=== PATIENT | female | born 1940 | race Caucasian/White ===

== ENCOUNTER 2017-10-02 12:36 | Emergency (ER) | payer MEDICARE, BC ==
[2017-10-02 12:43] VITALS: RESP 18; TEMP 98.9
[2017-10-02] MEDS ORDERED: DIPH,PERTUS(ACELL)TETVAC-LF 0.5 ML VIAL IM ONE (12:55)
[2017-10-02] MEDS ORDERED: LIDOCAINE 1% INJ 10MG/ML (20 ML MDV) SQ ONE (12:58)
--- NOTE | 2017-10-02 13:13 | ED ---
General Adult HPI - General Chief complaint: Wound/Laceration Stated complaint: Laceration on Finger Time Seen by Provider: 10/02/17 12:46 Source: patient, RN notes reviewed Mode of arrival: ambulatory Limitations: no limitations - History of Present Illness Initial comments: 77-year-old female presents to the emergency department for a chief complaint of finger laceration 1 hour. Patient was using a sharp, new knife to cut a watermelon when she accidentally cut her left second finger. Patient states she takes Coumadin. Patient denies any shortness of breath, chest pain, dizziness, lightheadedness, or blood in stool or urine. Patient states she can move the finger without difficulty. Patient is not up to date on tetanus. Patient has no other complaints at this time including shortness of breath, chest pain, abdominal pain, nausea or vomiting, headache, or visual changes. - Related Data Home Medications Medication Instructions Recorded Confirmed Diltiazem Cd [Cardizem Cd] 180 mg PO HS 03/30/15 10/02/17 Furosemide [Lasix] 20 mg PO DAILY PRN 03/30/15 10/02/17 HYDROcodone/APAP 7.5-325MG [[place] 0.5 tab PO Q6HR PRN 03/30/15 10/02/17 7.5-325] Levothyroxine Sodium [Synthroid] 50 mcg PO DAILY 03/30/15 10/02/17 Metoprolol Tartrate [Lopressor] 25 mg PO QAM 03/30/15 10/02/17 Phenytoin Sodium Extended 100 mg PO BID 03/30/15 10/02/17 [Dilantin] Metoprolol Tartrate [Lopressor] 50 mg PO HS 03/31/15 10/02/17 Warfarin [Coumadin] 5 mg PO DIRECTED 10/02/17 10/02/17 Warfarin [Coumadin] 7.5 mg PO DIRECTED 10/02/17 10/02/17 Allergies Allergy/AdvReac Type Severity Reaction Status Date / Time cephalexin monohydrate Allergy Nausea & Verified 10/02/17 12:43 [From Keflex] Vomiting codeine Allergy Unknown Verified 10/02/17 12:43 Penicillins Allergy Unknown Verified 10/02/17 12:43 Review of Systems ROS Statement: Those systems with pertinent positive or pertinent negative responses have been documented in the HPI. ROS Other: All systems not noted in ROS Statement are negative. Past Medical History Past Medical History: Atrial Flutter, Asthma, Heart Failure, GERD/Reflux, Hypertension, Seizure Disorder, Thyroid Disorder Additional Past Medical History / Comment(s): pt sates 2 1/2 years ago she had cardiac arrest., fibromyalgia History of Any Multi-Drug Resistant Organisms: MRSA Date of last positivie culture/infection: 2007 MDRO Source:: left knee Past Surgical History: Section, Hysterectomy, Orthopedic Surgery, Pacemaker Past Anesthesia/Blood Transfusion Reactions: No Reported Reaction, Postoperative Nausea & Vomiting (PONV) Past Psychological History: No Psychological Hx Reported Smoking Status: Never smoker Past Alcohol Use History: None Reported Past Drug Use History: None Reported General Exam Limitations: no limitations General appearance: alert, in no apparent distress Head exam: Present: atraumatic, normocephalic, normal inspection Eye exam: Present: normal appearance, PERRL, EOMI. Absent: scleral icterus, conjunctival injection, periorbital swelling ENT exam: Present: normal exam, mucous membranes moist Neck exam: Present: normal inspection, full ROM. Absent: tenderness, meningismus, lymphadenopathy Respiratory exam: Present: normal lung sounds bilaterally. Absent: respiratory distress, wheezes, rales, rhonchi, stridor Cardiovascular Exam: Present: regular rate, normal rhythm, normal heart sounds. Absent: systolic murmur, diastolic murmur, rubs, gallop, clicks Extremities exam: Present: full ROM (Full range of motion of the left second finger including flexion and extension of the MCP, PIP, and DIP joint), tenderness (Tenderness over the laceration site. No tenderness elsewhere in the left second digit or left hand. No scaphoid tenderness.), normal capillary refill (Refill less than 2 seconds in the left second digit. Radial pulse 2+ in upper extremities bilaterally.), other (Sensation intact in left second digit. There is a 1.5 cm laceration to the distal phalanx of the left second finger extending through the distal portion of the nail and around the lateral side of the finger to the finger pad) Course Vital Signs 10/02/17 10/02/17 12:41 13:42 Temperature 98.9 F Pulse Rate 60 53 L Respiratory 18 18 Rate Blood Pressure 192/84 143/65 O2 Sat by Pulse 94 L 94 L Oximetry Medical Decision Making - Medical Decision Making 77-year-old female presents to the emergency department for a chief complaint of finger laceration 1 hour. Tetanus was given in the emergency department. On exam patient is a 1 cm laceration of the distal left second finger. Full range of motion in the left second digit. All deep structures including tendons are uninjured. Patient was numbed with lidocaine using a digital block. Upon further inspection, Patient's laceration was an avulsion of the lateral surface of the skin of the finger. It was not suturable. Finger was cleaned with sterile water and iodine. Portion of nail that was partially lacerated was removed per patient's request. Gelfoam was applied to the avulsion area. TubeGauze was then applied. Bleeding was controlled. Patient was educated to take the gauze off tomorrow but to let the Gelfoam fall off on its own. She is aware to monitor for signs of infection or worsening symptoms and return if these occur. She will follow up with primary care in 1-2 days. Disposition Clinical Impression: Laceration Disposition: HOME SELF-CARE Condition: Good Instructions: Laceration (ED) Additional Instructions: Please remove gauze tomorrow. Let Gelfoam fall off on its own. Monitor for signs of infection such as spreading redness, drainage, or fever and return if this occurs. Otherwise follow-up with primary care in 1-2 days. Is patient prescribed a controlled substance at d/c from ED?: No Referrals: Cole Hensley DO [Primary Care Provider] - 1-2 days Time of Disposition: 13:52
--- NOTE | 2017-10-02 13:36 | XR ---
Second digit left hand HISTORY: Laceration 3 views of the second digit of the left hand Soft tissue defect is compatible with patient's laceration at the distal aspect of the second digit. Arthropathy changes noted. No radiopaque foreign body, fracture or dislocation. IMPRESSION: Soft tissue injury.
[2017-10-02 13:48] VITALS: BP 143/65; PULSE 53
[2017-10-02] MEDS ORDERED: GELATIN SPONGE,ABSORB (SMALL) 1 EACH SPONGE TOPICAL STA (13:49)
== END 2017-10-02 14:19 | disposition home or self-care (01) ==
LOC: EC 12:36
DX: S61.211A Laceration without foreign body of left index finger without damage to nail, initial encounter (principal); I48.91 Unspecified atrial fibrillation; I50.9 Heart failure, unspecified; I11.0 Hypertensive heart disease with heart failure; M79.7 Fibromyalgia; G40.909 Epilepsy, unspecified, not intractable, without status epilepticus; E07.9 Disorder of thyroid, unspecified; Z86.14 Personal history of Methicillin resistant Staphylococcus aureus infection; Z23 Encounter for immunization; Z79.01 Long term (current) use of anticoagulants; Z79.899 Other long term (current) drug therapy; Z88.0 Allergy status to penicillin; Z88.1 Allergy status to other antibiotic agents; Z88.5 Allergy status to narcotic agent; W26.0XXA Contact with knife, initial encounter
CPT/HCPCS: 73140; 90715; 99283; 11730; 90471; J2001

== ENCOUNTER → 2018-03-21 | Outpatient (CLI) | payer MEDICARE, BC ==
--- NOTE | 2018-03-21 16:00 | CT ---
EXAMINATION TYPE: CT cervical spine wo con DATE OF EXAM: 03/21/2018 COMPARISON: NONE HISTORY: Cervicalgia per order. CT DLP: 159 mGycm. Automated Exposure Control for Dose Reduction was Utilized. TECHNIQUE: CT scan of the cervical spine is obtained without contrast, axial images are obtained, sa gittal and coronal reformatted images are also reviewed. FINDINGS: Cervical spine is visualized in its entirety from C1 through upper thoracic levels, demonst rates straightened alignment without evidence of acute fracture or dislocation. Prevertebral soft ti ssue appears within normal limits. The C1-C2 articulation is within normal limits on the coronal davin ges. Vertebral body heights are maintained. There is moderate to severe multilevel disc space narrowing. N o large posterior disc herniations are seen on sagittal images. Review of axial images at C2-C3 level is felt within normal limits. Axial images at C3-C4 level show left paracentral/foraminal spurring effacing anterolateral thecal sa c and causing advanced left-sided neural foraminal narrowing on axial image 54. Axial images at C4-C5 level show marginal spurring causing moderate to severe bilateral neural forami nal narrowing with some uncovertebral facet degenerative changes appreciated bilaterally. Axial images at C5-C6 level show posterior and marginal spurring causing moderate to advanced left gr eater than right bilateral neural foraminal narrowing. Spinal canal is grossly preserved. Axial images at C6-C7 level show left paracentral/foraminal spurring causing moderate left-sided neur al foraminal narrowing. Right-sided neural foramen is patent. Axial images at the C7-T1 level show artifact from patient's body habitus. There are felt likely with in normal limits. There is calcified 1.2 x 0.9 cm left thyroid nodule axial image 81. There is partial visualization of pacemaker device in the left upper thorax. There is moderate to severe calcified plaque bilateral ca rotid bulbs. Carotid ultrasound March 31, 2015 is noted in PACS. IMPRESSION: Straightening of cervical spine with multilevel degenerative changes as detailed above. S ignificant multilevel posterior and marginal spurring . No obvious disc herniation identified.
--- NOTE | 2018-03-21 16:10 | CT ---
EXAMINATION TYPE: CT lumbar spine wo con DATE OF EXAM: 03/21/2018 3:54 PM COMPARISON: CT lumbar spine August 16, 2012. HISTORY: lumbago per order. History of pacemaker. CT DLP: 455 mGycm Automated exposure control for dose reduction was used. Unenhanced CT of the lumbar spine was performed. Bone and soft tissue window settings are submitted as well as coronal and sagittal reconstructions. There are 5 lumbar-type vertebra redemonstrated. Moderate to advanced disc space narrowing L5-S1 leve l is redemonstrated. There is moderate disc space narrowing L3-L4 level most prominent left aspect. N o acute fracture or dislocation is seen. Mild to moderate multilevel anterior and lateral spurring is present. Review of axial images shows T12-L1 and L1-L2 levels to appear within normal limits. Axial images at the L2-L3 level show broad-based posterior disc protrusion mildly effacing anterior t hecal sac and mild facet degenerative changes bilaterally. There is mild bilateral neural foraminal n arrowing felt present. Axial images at the L3-L4 level show moderate facet degenerative changes bilaterally. There is modera te broad disc bulge seen. There is effacement of anterior posterior lateral thecal sac on axial image 63. There is moderate to severe bilateral neural foraminal narrowing is felt present. Axial images at the L4-L5 level show moderate right and mild left-sided facet degenerative changes bi laterally. There is broad disc bulge with right paracentral/foraminal disc protrusion component on ax ial image 71. There is effacement of the anterolateral thecal sac. There is moderate to severe right- sided neural foraminal narrowing. Left-sided neural foramina is mildly narrowed. Axial images at L5-S1 level show moderate to advanced facet degenerative changes bilaterally. There i s posterior spur disc complex effacing anterior thecal sac. There is moderate to advanced right-sided neural foraminal narrowing. Left-sided neural foramina is moderately narrowed. There is suboptimal evaluation of left-sided neural foramina at sagittal images do not include entire left-sided foramina at multiple levels. There is partial visualization of pacemaker and the heart. Cholecystectomy clips are appreciated. The re is rim calcified lesion anteriorly upper pole level left kidney axial image 28 stable from prior p resumed benign. Some cortical thinning in both kidneys is present. There are few small nonobstructing renal calculi seen bilaterally on current study. IMPRESSION: Suboptimal study due to patient's body habitus as well as technique which does not includ e entire left sided foramina on sagittal images. Multilevel degenerative changes most prominent mid t o lower lumbar spine are seen as detailed above
== END | disposition home or self-care (01) ==
LOC: RADCTMAIN 14:58
PROVIDERS: ATTEND Psychiatry & Neurology Neurology
DX: M48.07 Spinal stenosis, lumbosacral region (principal); M99.73 Connective tissue and disc stenosis of intervertebral foramina of lumbar region; M51.26 Other intervertebral disc displacement, lumbar region; M47.817 Spondylosis without myelopathy or radiculopathy, lumbosacral region; M48.02 Spinal stenosis, cervical region; M99.71 Connective tissue and disc stenosis of intervertebral foramina of cervical region; M47.812 Spondylosis without myelopathy or radiculopathy, cervical region
CPT/HCPCS: 72125; 72131

== ENCOUNTER 2019-12-02 23:14 | Emergency (ER) | payer MEDICARE, BC ==
--- NOTE | 2019-12-03 00:08 | ED ---
Abdominal Pain HPI - General Chief Complaint: Abdominal Pain Stated Complaint: LT flank pain Time Seen by Provider: 12/02/19 23:34 Source: patient, RN notes reviewed, old records reviewed Mode of arrival: ambulatory Limitations: no limitations - History of Present Illness Initial Comments: This is a 79-year-old female DF for evaluation severe left flank pain. History of chronic back pain with this pain is worse. His been off [place] for 6 months which she weaned herself off all for chronic back pain last night started with severe flank pain radiating to her groin. Patient states that the pain is getting progressively worse throughout the day began mild nausea no vomiting no fevers. Normal bowel movement normal urination MD Complaint: abdominal pain, flank pain (Left-sided), other (No new back injury) -: hour(s) Location: LLQ, L flank Radiation: L flank Migration to: RLQ Severity: severe Severity scale (1-10): 9 Quality: stabbing, sharp Consistency: constant Improves With: nothing Worsens With: nothing Associated Symptoms: nausea - Related Data Home Medications Medication Instructions Recorded Confirmed Diltiazem Cd [Cardizem Cd] 180 mg PO HS 03/30/15 10/02/17 Furosemide [Lasix] 20 mg PO DAILY PRN 03/30/15 10/02/17 HYDROcodone/APAP 7.5-325MG [[place] 0.5 tab PO Q6HR PRN 03/30/15 10/02/17 7.5-325] Levothyroxine Sodium [Synthroid] 50 mcg PO DAILY 03/30/15 10/02/17 Metoprolol Tartrate [Lopressor] 25 mg PO QAM 03/30/15 10/02/17 Phenytoin Sodium Extended 100 mg PO BID 03/30/15 10/02/17 [Dilantin] Metoprolol Tartrate [Lopressor] 50 mg PO HS 03/31/15 10/02/17 Warfarin [Coumadin] 5 mg PO DIRECTED 10/02/17 10/02/17 Warfarin [Coumadin] 7.5 mg PO DIRECTED 10/02/17 10/02/17 Allergies Allergy/AdvReac Type Severity Reaction Status Date / Time cephalexin monohydrate Allergy Nausea & Verified 12/02/19 23:31 [From Keflex] Vomiting codeine Allergy Unknown Verified 12/02/19 23:31 Penicillins Allergy Unknown Verified 12/02/19 23:31 Review of Systems ROS Statement: Those systems with pertinent positive or pertinent negative responses have been documented in the HPI. ROS Other: All systems not noted in ROS Statement are negative. Past Medical History Past Medical History: Atrial Flutter, Asthma, Heart Failure, GERD/Reflux, Hypertension, Seizure Disorder, Thyroid Disorder Additional Past Medical History / Comment(s): pt sates 2 1/2 years ago she had cardiac arrest., fibromyalgia History of Any Multi-Drug Resistant Organisms: MRSA Date of last positivie culture/infection: 2007 MDRO Source:: left knee Past Surgical History: Section, Hysterectomy, Orthopedic Surgery, Pacemaker Past Anesthesia/Blood Transfusion Reactions: No Reported Reaction, Postoperative Nausea & Vomiting (PONV) Past Psychological History: Depression Smoking Status: Never smoker Past Alcohol Use History: None Reported Past Drug Use History: None Reported General Exam Limitations: no limitations General appearance: alert, in no apparent distress, anxious Head exam: Present: atraumatic, normocephalic, normal inspection Eye exam: Present: normal appearance, PERRL, EOMI. Absent: scleral icterus, conjunctival injection, periorbital swelling ENT exam: Present: normal exam, mucous membranes moist Neck exam: Present: normal inspection. Absent: tenderness, meningismus, lymphadenopathy Respiratory exam: Present: normal lung sounds bilaterally. Absent: respiratory distress, wheezes, rales, rhonchi, stridor Cardiovascular Exam: Present: regular rate, normal rhythm, normal heart sounds. Absent: systolic murmur, diastolic murmur, rubs, gallop, clicks GI/Abdominal exam: Present: soft, normal bowel sounds. Absent: distended, tenderness, guarding, rebound, rigid Extremities exam: Present: normal inspection, full ROM, normal capillary refill. Absent: tenderness, pedal edema, joint swelling, calf tenderness Back exam: Present: normal inspection Neurological exam: Present: alert, oriented X3, CN II-XII intact Psychiatric exam: Present: normal affect, normal mood Skin exam: Present: warm, dry, intact, normal color. Absent: rash Course Vital Signs 12/02/19 23:29 Temperature 98.9 F Pulse Rate 60 Respiratory 17 Rate Blood Pressure 195/74 O2 Sat by Pulse 96 Oximetry - Reevaluation(s) Reevaluation #1: 12/03/19 01:44 Medical records reviewed Reevaluation #2: 12/03/19 01:44 Patient has adequate current pain control Reevaluation #3: 12/03/19 01:44 Spoke patient having symptoms and findings, questions are answered Medical Decision Making - Medical Decision Making 79 female with left flank pain chronic back pain, pain is well-controlled currently new diagnosis of kidney stones today, patient given pain control here in the ER and can be discharged home - Lab Data Result diagrams: 12/03/19 00:17 12/03/19 00:17 Lab Results 12/03/19 12/03/19 12/03/19 Range/Units 00:17 00:17 00:17 WBC 11.2 H (3.8-10.6) k/uL RBC 4.98 (3.80-5.40) m/uL Hgb 15.2 (11.4-16.0) gm/dL Hct 47.5 H (34.0-46.0) % MCV 95.4 (80.0-100.0) fL MCH 30.5 (25.0-35.0) pg MCHC 32.0 (31.0-37.0) g/dL RDW 13.2 (11.5-15.5) % Plt Count 161 (150-450) k/uL Neutrophils % 66 % Lymphocytes % 20 % Monocytes % 8 % Eosinophils % 3 % Basophils % 1 % Neutrophils # 7.4 (1.3-7.7) k/uL Lymphocytes # 2.2 (1.0-4.8) k/uL Monocytes # 0.9 (0-1.0) k/uL Eosinophils # 0.3 (0-0.7) k/uL Basophils # 0.1 (0-0.2) k/uL Sodium 142 (137-145) mmol/L Potassium 4.6 (3.5-5.1) mmol/L Chloride 105 (98-107) mmol/L Carbon Dioxide 32 H (22-30) mmol/L Anion Gap 5 mmol/L BUN 26 H (7-17) mg/dL Creatinine 1.06 H (0.52-1.04) mg/dL Est GFR (CKD-EPI)AfAm 59 (>60 ml/min/1.73 sqM) Est GFR (CKD-EPI)NonAf 51 (>60 ml/min/1.73 sqM) Glucose 161 H (74-99) mg/dL Plasma Lactic Acid Lauri 1.6 (0.7-2.0) mmol/L Calcium 9.6 (8.4-10.2) mg/dL Phosphorus 3.3 (2.5-4.5) mg/dL Magnesium 2.1 (1.6-2.3) mg/dL Total Bilirubin 0.3 (0.2-1.3) mg/dL AST 33 (14-36) U/L ALT 12 (4-34) U/L Alkaline Phosphatase 121 (38-126) U/L Total Protein 7.4 (6.3-8.2) g/dL Albumin 4.3 (3.5-5.0) g/dL Amylase 64 (30-110) U/L Lipase 94 (23-300) U/L - Radiology Data Radiology results: report reviewed (CT head and pelvis is significant for left- sided ureteral calculus), image reviewed Disposition Clinical Impression: Left ureteral calculus Disposition: HOME SELF-CARE Condition: Good Instructions (If sedation given, give patient instructions): Kidney Stones (ED) Is patient prescribed a controlled substance at d/c from ED?: No Referrals: Cole Hensley DO [Primary Care Provider] - 1-2 days
[2019-12-03] MEDS ORDERED: MORPHINE SULFATE 4 MG/ML SYRINGE IVP PRN (00:21)
[2019-12-03] MEDS ORDERED: MORPHINE SULFATE 4 MG/ML SYRINGE IVP STA (00:21)
[2019-12-03 00:34] LABS: Basophils # (A) 0.1 k/uL (0-0.2); Basophils % (A) 1 %; Eosinophils # (A) 0.3 k/uL (0-0.7); Eosinophils % (A) 3 %; HCT 47.5 % (34.0-46.0); HGB 15.2 gm/dL (11.4-16.0); Lymphocytes # (A) 2.2 k/uL (1.0-4.8); Lymphocytes % (A) 20 %; MCH 30.5 pg (25.0-35.0); MCV 95.4 fL (80.0-100.0); Monocytes # (A) 0.9 k/uL (0-1.0); Monocytes % (A) 8 %; Neutrophils # (A) 7.4 k/uL (1.3-7.7); Neutrophils % (A) 66 %; Platelet Count 161 k/uL (150-450); RBC 4.98 m/uL (3.80-5.40); RDW 13.2 % (11.5-15.5); WBC 11.2 k/uL (3.8-10.6)
[2019-12-03 00:45] LABS: Albumin 4.3 g/dL (3.5-5.0); Calcium 9.6 mg/dL (8.4-10.2); Magnesium 2.1 mg/dL (1.6-2.3); Phosphorus 3.3 mg/dL (2.5-4.5); Potassium 4.6 mmol/L (3.5-5.1); Total Bilirubin 0.3 mg/dL (0.2-1.3); Total Protein 7.4 g/dL (6.3-8.2)
[2019-12-03] MEDS ORDERED: ONDANSETRON 4 MG/2 ML VIAL IVP STA (00:47)
--- NOTE | 2019-12-03 00:57 | CT ---
EXAMINATION TYPE: CT abdomen pelvis wo con DATE OF EXAM: 12/03/2019 COMPARISON: 08/13/2012 HISTORY: Abdominal pain left flank pain. CT DLP: 1097.4 mGycm Automated exposure control for dose reduction was used. Heart appears enlarged. There is minimal atelectasis right lung base. There is no pleural effusion. T here is no pericardial effusion. There are clips from cholecystectomy. Bile ducts are not dilated. Liver shows no focal defect. Spleen is intact. There is no pancreatic mass. Stomach is intact. There is no adrenal mass. Kidneys have normal size. There is left-sided hydronephrosis and hydrourete r. There is 5 mm calculus at the left ureterovesical junction. There is complex 2 cm cyst upper pole left kidney with calcification. There is 4 mm calculus lower pole left kidney. Right kidney shows some hydronephrosis but no hydroureter. There is no evidence of right renal calcul us. There is no retroperitoneal adenopathy. Appendix is not seen. There is no sign of thickened appendix. There is no ascites. There is no free a ir. There is no evidence of bowel obstruction. There are sigmoid diverticula without diverticulitis. There is no mesenteric edema. There are some spondylotic changes in the lumbar spine. There is no compression fracture. There is sp urring of the endplates. The bony pelvis is intact. There is moderately severe spinal stenosis at L3- 4 L4-5 due to facet arthropathy and developmentally small spinal canal. There is also posterior disc herniation at L3-4 and L4-5. IMPRESSION: Obstructing calculus at the left ureterovesical junction with hydronephrosis and hydroureter. Small l eft renal calculus. Mild right-sided hydronephrosis without evidence of obstructing calculus. Minimal atelectasis at the lung bases is improved compared to old exam. Obstruction of left kidney is new compared to old exam. Complex calcified cyst left kidney unchanged. Significant spinal stenosis in the lower lumbar spine. Unchanged.
[2019-12-03] MEDS ORDERED: SODIUM CHLORIDE 0.9% 1,000 ML IV STA (01:22)
[2019-12-03] MEDS ORDERED: traMADol 50 MG STARTER PACK 3 TAB BTL PO STA (01:22)
[2019-12-03] MEDS ORDERED: IBUPROFEN 600 MG STARTER PACK 4 TAB BTL PO STA (01:22)
[2019-12-03] MEDS ORDERED: KETOROLAC 15 MG/ML 1 ML VIAL IVP STA (01:22)
[2019-12-03] MEDS ORDERED: TAMSULOSIN 0.4 MG CAP.ER.24H PO STA (01:22)
[2019-12-03 02:11] LABS: Appearance,Urine Cloudy (Clear); Bacteria,Urine Few /hpf; Bilirubin,Urine Negative (Negative); Blood,Urine Moderate (Negative); Color,Urine Yellow; Glucose,Urine (UA) Negative (Negative); Ketones,Urine Negative (Negative); Leukocyte Esterase,Urine Small (Negative); Mucus,Urine Rare /hpf; Nitrite,Urine Positive (Negative); PH, Urine 5.5 (5.0-8.0); Protein,Urine Trace (Negative); RBC,Urine 42 /hpf (0-5); Specific Gravity,Urine 1.021 (1.001-1.035); Squamous Epithelial Cell,Urine 4 /hpf (0-4); Urobilinogen,Urine <2.0 mg/dL (<2.0); WBC,Urine 15 /hpf (0-5)
[2019-12-03] MEDS ORDERED: LEVOFLOXACIN 750MG-D5W PMX 750 MG in DEXTROSE/WATER 1 150ML.BAG IVPB STA (02:27)
[2019-12-03] MEDS ORDERED: LEVOFLOXACIN 750 MG TAB PO STA (02:32)
[2019-12-03 02:45] VITALS: BP 167/82; PULSE 69; RESP 18; TEMP 98.7
== END 2019-12-03 02:45 | disposition home or self-care (01) ==
LOC: EC 23:14
DX: N20.2 Calculus of kidney with calculus of ureter (principal); I11.0 Hypertensive heart disease with heart failure; I50.9 Heart failure, unspecified; I48.92 Unspecified atrial flutter; E07.9 Disorder of thyroid, unspecified; G40.909 Epilepsy, unspecified, not intractable, without status epilepticus; Z79.899 Other long term (current) drug therapy; Z79.890 Hormone replacement therapy; Z79.01 Long term (current) use of anticoagulants; Z88.0 Allergy status to penicillin; Z88.1 Allergy status to other antibiotic agents; Z88.5 Allergy status to narcotic agent; Z90.710 Acquired absence of both cervix and uterus
CPT/HCPCS: 36415; 80053; 82150; 83605; 83690; 83735; 84100; 85025; 81001; 87086; 87077; 87186; 74176; 99285; 96374; 96375 ×2; 96361; J2270; J2405; J1885

== ENCOUNTER 2022-01-14 00:34 | Emergency (ER) | payer MEDICARE, BC ==
[2022-01-14 00:46] VITALS: TEMP 99
[2022-01-14] MEDS ORDERED: KETOROLAC 15 MG/ML 1 ML VIAL IVP STA (00:52)
[2022-01-14] MEDS ORDERED: DEXAMETHASONE SOD PHOSPHATE 10 MG/ML 1 ML VIAL IVP STA (00:52)
[2022-01-14] MEDS ORDERED: SODIUM CHLORIDE 0.9% 1,000 ML IV STA ×2 (00:52)
[2022-01-14] MEDS ORDERED: ACETAMINOPHEN TAB 500 MG TAB PO STA (00:52)
--- NOTE | 2022-01-14 00:53 | ED ---
Recheck HPI - General Chief Complaint: Weakness Stated Complaint: Weakness Time Seen by Provider: 01/14/22 00:50 Source: patient, EMS, RN notes reviewed, old records reviewed Mode of arrival: EMS Limitations: no limitations - History of Present Illness Initial Comments: This is a 81-year-old female to the emergency department for evaluation. Patient resents for not feeling well. Increased cough and congestion shortness of breath with history of asthma. Patient did have sick contacts on Wednesday night be can do feel worse since then. Bodyaches pains etc. she doesn't at home test which was positive. MD Complaint: abnormal lab (Coronavirus) -: days(s) Returns Today for: Called Because of Abnormal Lab/Test, persistent/worsening pain related to initial visit Symptoms Since Prior Visit: worsening pain, fever Context: planned re-check Associated Symptoms: fever, shortness of breath, malaise, nausea Treatments Prior to Arrival: other (0) - Related Data Home Medications Medication Instructions Recorded Confirmed Diltiazem Cd [Cardizem Cd] 180 mg PO HS 03/30/15 10/02/17 Furosemide [Lasix] 20 mg PO DAILY PRN 03/30/15 10/02/17 HYDROcodone/APAP 7.5-325MG [[place] 0.5 tab PO Q6HR PRN 03/30/15 10/02/17 7.5-325] Levothyroxine Sodium [Synthroid] 50 mcg PO DAILY 03/30/15 10/02/17 Metoprolol Tartrate [Lopressor] 25 mg PO QAM 03/30/15 10/02/17 Phenytoin Sodium Extended 100 mg PO BID 03/30/15 10/02/17 [Dilantin] Metoprolol Tartrate [Lopressor] 50 mg PO HS 03/31/15 10/02/17 Warfarin [Coumadin] 5 mg PO DIRECTED 10/02/17 10/02/17 Warfarin [Coumadin] 7.5 mg PO DIRECTED 10/02/17 10/02/17 Previous Rx's Medication Instructions Recorded levoFLOXacin [Levaquin] 500 mg PO DAILY 3 Days #3 tab 12/03/19 dexAMETHasone [Decadron] 6 mg PO DAILY #5 tablet 01/14/22 Allergies Allergy/AdvReac Type Severity Reaction Status Date / Time cephalexin monohydrate Allergy Nausea & Verified 01/14/22 00:46 [From Keflex] Vomiting codeine Allergy Unknown Verified 01/14/22 00:46 Penicillins Allergy Unknown Verified 01/14/22 00:46 Review of Systems ROS Statement: Those systems with pertinent positive or pertinent negative responses have been documented in the HPI. ROS Other: All systems not noted in ROS Statement are negative. Past Medical History Past Medical History: Atrial Flutter, Asthma, Heart Failure, GERD/Reflux, Hypertension, Seizure Disorder, Thyroid Disorder Additional Past Medical History / Comment(s): pt sates 2 1/2 years ago she had cardiac arrest., fibromyalgia History of Any Multi-Drug Resistant Organisms: MRSA Date of last positivie culture/infection: 2007 MDRO Source:: left knee Past Surgical History: Section, Hysterectomy, Orthopedic Surgery, Pacemaker Past Anesthesia/Blood Transfusion Reactions: No Reported Reaction, Postoperative Nausea & Vomiting (PONV) Past Psychological History: Depression Smoking Status: Never smoker Past Alcohol Use History: None Reported Past Drug Use History: None Reported General Exam General appearance: alert, in no apparent distress Head exam: Present: atraumatic, normocephalic, normal inspection Eye exam: Present: normal appearance, PERRL, EOMI. Absent: scleral icterus, conjunctival injection, periorbital swelling ENT exam: Present: normal exam, mucous membranes moist Neck exam: Present: normal inspection. Absent: tenderness, meningismus, lymphadenopathy Respiratory exam: Present: normal lung sounds bilaterally. Absent: respiratory distress, wheezes, rales, rhonchi, stridor Cardiovascular Exam: Present: regular rate, normal rhythm, normal heart sounds. Absent: systolic murmur, diastolic murmur, rubs, gallop, clicks GI/Abdominal exam: Present: soft, normal bowel sounds. Absent: distended, tenderness, guarding, rebound, rigid Extremities exam: Present: normal inspection, full ROM, normal capillary refill. Absent: tenderness, pedal edema, joint swelling, calf tenderness Back exam: Present: normal inspection Neurological exam: Present: alert, oriented X3, CN II-XII intact Psychiatric exam: Present: normal affect, normal mood Skin exam: Present: warm, dry, intact, normal color. Absent: rash Course Vital Signs 01/14/22 00:44 Temperature 99 F Pulse Rate 68 Respiratory 19 Rate Blood Pressure 154/89 O2 Sat by Pulse 98 Oximetry - Reevaluation(s) Reevaluation #1: 01/14/22 02:29 Medical record is reviewed Reevaluation #2: 01/14/22 02:29 Patient symptoms are improved Reevaluation #3: 01/14/22 02:29 Patient informed of results, questions answered, feels comfortable for discharge home Medical Decision Making - Medical Decision Making 81 female positive for coronavirus patient will be discharged home and she feels well currently - Lab Data Result diagrams: 01/14/22 00:51 Lab Results 01/14/22 01/14/22 01/14/22 Range/Units 00:51 00:51 00:51 PT 17.9 H (9.0-12.0) sec INR 1.8 H (<1.2) APTT 29.9 (22.0-30.0) sec Sodium 138 (137-145) mmol/L Potassium 4.4 (3.5-5.1) mmol/L Chloride 98 (98-107) mmol/L Carbon Dioxide 32 H (22-30) mmol/L Anion Gap 8 mmol/L BUN 19 H (7-17) mg/dL Creatinine 0.92 (0.52-1.04) mg/dL Est GFR (CKD-EPI)AfAm 69 (>60 ml/min/1.73 sqM) Est GFR (CKD-EPI)NonAf 60 (>60 ml/min/1.73 sqM) Glucose 105 H (74-99) mg/dL Plasma Lactic Acid Lauri 1.5 (0.7-2.0) mmol/L Calcium 9.3 (8.4-10.2) mg/dL Magnesium 1.7 (1.6-2.3) mg/dL Total Bilirubin 0.5 (0.2-1.3) mg/dL AST 31 (14-36) U/L ALT 15 (4-34) U/L Alkaline Phosphatase 133 H (38-126) U/L Lactate Dehydrogenase 470 (313-618) U/L C-Reactive Protein 2.8 H (<1.0) mg/dL Total Protein 6.8 (6.3-8.2) g/dL Albumin 4.0 (3.5-5.0) g/dL - EKG Data -: EKG Interpreted by Me (EKG is paced 68 VA 298 QRS 168 QTc 420) - Radiology Data Radiology results: report reviewed (Chest x-rays negative for acute disease), image reviewed Disposition Clinical Impression: Coronavirus infection Disposition: HOME SELF-CARE Condition: Good Instructions (If sedation given, give patient instructions): Coronavirus Disease 2019 (COVID-19) Prescriptions: dexAMETHasone [Decadron] 6 mg PO DAILY #5 tablet Is patient prescribed a controlled substance at d/c from ED?: No Referrals: Cole Hensley DO [Primary Care Provider] - 1-2 days Time of Disposition: 02:35
[2022-01-14 01:24] LABS: C Reactive Protein 2.8 mg/dL (<1.0); Calcium 9.3 mg/dL (8.4-10.2); INR 1.8 (<1.2); Magnesium 1.7 mg/dL (1.6-2.3); Partial Thromboplastin Time 29.9 sec (22.0-30.0); Potassium 4.4 mmol/L (3.5-5.1); Prothrombin Time 17.9 sec (9.0-12.0); Total Bilirubin 0.5 mg/dL (0.2-1.3); Total Protein 6.8 g/dL (6.3-8.2)
--- NOTE | 2022-01-14 02:10 | XR ---
EXAMINATION TYPE: XR chest 1V portable DATE OF EXAM: 01/14/2022 COMPARISON: 04/04/2015 HISTORY: Pneumonia. Short of breath. TECHNIQUE: FINDINGS: There is no heart failure nor confluent pneumonic infiltrate. There is left axillary pacema ker. Costophrenic angles are fairly clear. There are no hilar masses. There is poor inspiration. IMPRESSION: No pulmonary consolidation or heart failure. Inspiration decreased slightly compared to o ld exam.
[2022-01-14 02:33] LABS: Basophils # (A) 0.1 k/uL (0-0.2); Basophils % (A) 1 %; Eosinophils # (A) 0.3 k/uL (0-0.7); Eosinophils % (A) 3 %; HCT 43.9 % (34.0-46.0); HGB 14.7 gm/dL (11.4-16.0); Lymphocytes # (A) 0.8 k/uL (1.0-4.8); Lymphocytes % (A) 10 %; MCH 32.3 pg (25.0-35.0); MCHC 33.5 g/dL (31.0-37.0); MCV 96.2 fL (80.0-100.0); Mean Platelet Volume 9.9; Monocytes # (A) 1.1 k/uL (0-1.0); Monocytes % (A) 13 %; Neutrophils # (A) 5.7 k/uL (1.3-7.7); Neutrophils % (A) 71 %; Platelet Count 144 k/uL (150-450); RBC 4.57 m/uL (3.80-5.40); RDW 12.9 % (11.5-15.5); WBC 8.1 k/uL (3.8-10.6)
[2022-01-14 02:42] VITALS: BP 139/77; PULSE 71; RESP 15
== END 2022-01-14 02:59 | disposition home or self-care (01) ==
LOC: EC 00:34
DX: U07.1 COVID-19 (principal); J45.909 Unspecified asthma, uncomplicated; I11.0 Hypertensive heart disease with heart failure; I50.9 Heart failure, unspecified; I48.92 Unspecified atrial flutter; K21.9 Gastro-esophageal reflux disease without esophagitis; E07.9 Disorder of thyroid, unspecified; Z88.0 Allergy status to penicillin; Z88.5 Allergy status to narcotic agent; Z88.1 Allergy status to other antibiotic agents; Z79.890 Hormone replacement therapy; Z79.899 Other long term (current) drug therapy; Z79.01 Long term (current) use of anticoagulants; Z95.0 Presence of cardiac pacemaker
CPT/HCPCS: 36415; 93005; 83880; 80053; 83605; 83615; 83735; 85025; 85610; 85730; 86140; 71045; 96374; 96375; 96361; 99285; J1100; J1885

== ENCOUNTER 2022-08-06 10:34 | Inpatient (IN) | payer MEDICARE, BC ==
[2022-08-06] MEDS ORDERED: methylPREDNISolone SOD SUCCI 125 MG/2 ML VIAL IV STA (11:00)
[2022-08-06] MEDS ORDERED: IPRATROPIUM 0.5 MG/2.5 ML NEBU INHALATION STA (11:00)
[2022-08-06] MEDS ORDERED: ALBUTEROL NEBULIZED 2.5 MG/3 ML INHALATION STA (11:00)
--- NOTE | 2022-08-06 11:06 | ED ---
General Adult HPI - General Chief complaint: Shortness of Breath Stated complaint: sob Time Seen by Provider: 08/06/22 10:40 Source: patient, family, RN notes reviewed, old records reviewed Mode of arrival: wheelchair Limitations: no limitations - History of Present Illness Initial comments: This is an 82-year-old female presents emergency department stating that she started having difficulty breathing starting last night and progressed into this morning per patient states the difficulty breathing is worsened. Patient states she has a little bit of a cough and felt like she was coming down with a cold last night but otherwise felt pretty good. Patient denies chest pain or palpitations. Patient denies any fever. Patient denies any sputum production when she coughs. Patient denies abdominal pain patient denies nausea vomiting diarrhea. - Related Data Home Medications Medication Instructions Recorded Confirmed Diltiazem Cd [Cardizem Cd] 180 mg PO HS 03/30/15 08/06/22 Levothyroxine Sodium [Synthroid] 75 mcg PO DAILY 03/30/15 08/06/22 Phenytoin Sodium Extended 100 mg PO BID 03/30/15 08/06/22 [Dilantin] Warfarin [Coumadin] 5 mg PO SUTUTHSA 10/02/17 08/06/22 Acetaminophen [Tylenol Arthritis] 650 mg PO BID 08/06/22 08/06/22 Calcium Carbonate [Calcium] 600 mg PO HS 08/06/22 08/06/22 Cetirizine HCl [Zyrtec] 10 mg PO DAILY 08/06/22 08/06/22 Docusate [Colace] 100 mg PO HS PRN 08/06/22 08/06/22 Gabapentin [Neurontin] 200 mg PO TID 08/06/22 08/06/22 Metoprolol Succinate (ER) [Toprol 25 mg PO DAILY 08/06/22 08/06/22 Xl] Metoprolol Succinate (ER) [Toprol 50 mg PO HS 08/06/22 08/06/22 Xl] Multivit-Min/Iron/Folic/Lutein 1 tab PO HS 08/06/22 08/06/22 [Centrum Silver Women Tablet] Solifenacin Succinate [Vesicare] 5 mg PO HS 08/06/22 08/06/22 Warfarin [Coumadin] 2.5 mg PO MOWEFR 08/06/22 08/06/22 methocarbamoL [Robaxin-750] 750 mg PO BID 08/06/22 08/06/22 Allergies Allergy/AdvReac Type Severity Reaction Status Date / Time cephalexin monohydrate Allergy Nausea & Verified 08/06/22 12:19 [From Keflex] Vomiting codeine Allergy Unknown Verified 08/06/22 12:19 Penicillins Allergy Rash/Hives Verified 08/06/22 12:19 & Swelling all over Review of Systems ROS Statement: Those systems with pertinent positive or pertinent negative responses have been documented in the HPI. ROS Other: All systems not noted in ROS Statement are negative. Past Medical History Past Medical History: Atrial Flutter, Asthma, Heart Failure, GERD/Reflux, Hypertension, Seizure Disorder, Thyroid Disorder Additional Past Medical History / Comment(s): pt sates 2 1/2 years ago she had cardiac arrest., fibromyalgia History of Any Multi-Drug Resistant Organisms: MRSA Date of last positivie culture/infection: 2007 MDRO Source:: left knee Past Surgical History: Section, Hysterectomy, Orthopedic Surgery, Pacemaker Past Anesthesia/Blood Transfusion Reactions: No Reported Reaction, Postoperative Nausea & Vomiting (PONV) Past Psychological History: Depression Smoking Status: Never smoker Past Alcohol Use History: None Reported Past Drug Use History: None Reported General Exam - General Exam Comments Initial Comments: GENERAL: Patient is well-developed and well-nourished. Patient is nontoxic and well- hydrated and is in mild distress. ENT: Neck is soft and supple. No significant lymphadenopathy is noted. Oropharynx is clear. Moist mucous membranes. Neck has full range of motion without eliciting any pain. EYES: The sclera were anicteric and conjunctiva were pink and moist. Extraocular movements were intact and pupils were equal round and reactive to light. Eyelids were unremarkable. PULMONARY: Patient is expiratory wheezing and also sending a little bit of stridor CARDIOVASCULAR: There is a regular rate and rhythm without any murmurs gallops or rubs. ABDOMEN: Soft and nontender with normal bowel sounds. SKIN: Skin is clear with no lesions or rashes and otherwise unremarkable. NEUROLOGIC: Patient is alert and oriented x3. Cranial nerves II through XII are grossly intact. Motor and sensory are also intact. Normal speech, volume and content. Symmetrical smile. MUSCULOSKELETAL: Normal extremities with adequate strength and full range of motion. LYMPHATICS: No significant lymphadenopathy is noted PSYCHIATRIC: Normal psychiatric evaluation. Limitations: no limitations Course Vital Signs 05/04/23 05/04/23 05/04/23 10:37 11:27 11:34 Temperature 97.8 F Pulse Rate 60 60 62 Respiratory 18 18 18 Rate Blood Pressure 194/77 180/72 O2 Sat by Pulse 94 L 100 Oximetry 08/06/22 11:36 Temperature Pulse Rate 60 Respiratory 18 Rate Blood Pressure O2 Sat by Pulse Oximetry Medical Decision Making - Medical Decision Making EKG was interpreted by myself. Shows a paced rhythm at 60 bpm QRS is 192 QT interval 463 QTC is 463. Was pt. sent in by a medical professional or institution (, PA, YARD CONDUCTOR, urgent care, hospital, or skilled nursing...) When possible be specific @ -No Did you speak to anyone other than the patient for history (EMS, parent, family, police, friend...)? What history was obtained from this source @ -Daughter gave some of the history Did you review nursing and triage notes (agree or disagree)? Why? @ -I reviewed and agree with nursing and triage notes Were old charts reviewed (outside hosp., previous admission, EMS record, old EKG, old radiological studies, urgent care reports/EKG's, skilled nursing records)? Report findings @ -I reviewed prior lab work and radiological studies Differential Diagnosis (chest pain, altered mental status, abdominal pain women, abdominal pain men, vaginal bleeding, weakness, fever, dyspnea, syncope, headache, dizziness, GI bleed, back pain, seizure, CVA, palpatations, mental health, musculoskeletal)? @ -Differential Dyspnea: Coronary syndrome, arrhythmia, tamponade, asthma, COPD, pulmonary embolism, pneumonia, pneumothorax, pulmonary effusion, anaphylaxis, diabetic ketoacidosis, flailed chest, pulmonary contusion, diaphragmatic rupture, anemia, neuromuscular, this is not meant to be an all-inclusive list. EKG interpreted by me (3pts min.). @ -As above X-rays interpreted by me (1pt min.). @ -Chest x-ray shows a infiltrate on the left consistent with pneumonia CT interpreted by me (1pt min.). @ -None done U/S interpreted by me (1pt. min.). @ -None done What testing was considered but not performed or refused? (CT, X-rays, U/S, labs)? Why? @ -None What meds were considered but not given or refused? Why? @ -None Did you discuss the management of the patient with other professionals (professionals i.e. , PA, YARD CONDUCTOR, lab, RT, psych nurse, social media assistant, taxi dancer, t eacher, staff readiness officer, classification case manager)? Give summary @ -Poke with Dr. Hensley and he agreed to admit the patient I admitted the patient wrote admitting orders Was smoking cessation discussed for >3mins.? @ -No Was critical care preformed (if so, how long)? @ -No Were there social determinants of health that impacted care today? How? (Homelessness, low income, unemployed, alcoholism, drug addiction, transportation, low edu. Level, literacy, decrease access to med. care, fpc, rehab)? @ -No Was there de-escalation of care discussed even if they declined (Discuss DNR or withdrawal of care, Hospice)? DNR status @ -No What co-morbidities impacted this encounter? (DM, HTN, Smoking, COPD, CAD, Cancer, CVA, ARF, Chemo, Hep., AIDS, mental health diagnosis, sleep apnea, morbid obesity)? @ -None Was patient admitted / discharged? Hospital course, mention meds given and rout e, prescriptions, significant lab abnormalities, going to OR and other pertinent info. @ -Patient was given 2 breathing treatments and steroids I went back and reevaluated the patient she was doing much better but she continued to have extra wheezing. I spoke with Dr. Hensley he agreed that the patient should be admitted I started the patient antibiotics prophylactically. Patient was ALLERGIC to cephalosporins and penicillins I started the patient on Levaquin. Undiagnosed new problem with uncertain prognosis? @ -No Drug Therapy requiring intensive monitoring for toxicity (Heparin, Nitro, Insulin, Cardizem)? @ -No Were any procedures done? @ -No Diagnosis/symptom? @ -Pneumonia Acute, or Chronic, or Acute on Chronic? @ -Acute Uncomplicated (without systemic symptoms) or Complicated (systemic symptoms)? @ -Complicated Side effects of treatment? @ -No Exacerbation, Progression, or Severe Exacerbation? @ -No Poses a threat to life or bodily function? How? (Chest pain, [place], [place], pneumonia, PE, COPD, DKA, ARF, appy, cholecystitis, CVA, Diverticulitis, Homicidal, Suicidal, threat to staff... and all critical care pts) @ -Yes is completely sepsis which can lead to end organ dysfunction Diagnosis/symptom? @ -Bronchospasms Acute, or Chronic, or Acute on Chronic? @ -Acute Uncomplicated (without systemic symptoms) or Complicated (systemic symptoms)? @ -Complicated Side effects of treatment? @ -none Exacerbation, Progression, or Severe Exacerbation] @ -no Poses a threat to life or bodily function? @ -Yes This could lead to hypoxia and and organ dysfunction - Lab Data Result diagrams: 08/06/22 12:47 08/06/22 11:23 Lab Results 08/06/22 08/06/22 08/06/22 Range/Units 11:23 11: 11:23 WBC (3.8-10.6) k/uL RBC (3.80-5.40) m/uL Hgb (11.4-16.0) gm/dL Hct (34.0-46.0) % MCV (80.0-100.0) fL MCH (25.0-35.0) pg MCHC (31.0-37.0) g/dL RDW (11.5-15.5) % Plt Count (150-450) k/uL MPV Neutrophils % % Lymphocytes % % Monocytes % % Eosinophils % % Basophils % % Neutrophils # (1.3-7.7) k/uL Lymphocytes # (1.0-4.8) k/uL Monocytes # (0-1.0) k/uL Eosinophils # (0-0.7) k/uL Basophils # (0-0.2) k/uL PT (9.0-12.0) sec INR (<1.2) APTT (22.0-30.0) sec Sodium 140 (137-145) mmol/L Potassium 4.6 (3.5-5.1) mmol/L Chloride 102 (98-107) mmol/L Carbon Dioxide 31 H (22-30) mmol/L Anion Gap 7 mmol/L BUN 14 (7-17) mg/dL Creatinine 0.81 (0.52-1.04) mg/dL Est GFR (CKD-EPI)AfAm 80 (>60 ml/min/1.73 sqM) Est GFR (CKD-EPI)NonAf 69 (>60 ml/min/1.73 sqM) Glucose 98 (74-99) mg/dL Plasma Lactic Acid Lauri 1.2 (0.7-2.0) mmol/L Calcium 9.3 (8.4-10.2) mg/dL Magnesium 1.7 (1.6-2.3) mg/dL Total Bilirubin 0.7 (0.2-1.3) mg/dL AST 31 (14-36) U/L ALT 12 (4-34) U/L Alkaline Phosphatase 114 (38-126) U/L Troponin I <0.012 (0.000-0.034) ng/mL Total Protein 7.2 (6.3-8.2) g/dL Albumin 4.0 (3.5-5.0) g/dL Phenytoin ug/mL Influenza Type A (PCR) (Not Detectd) Influenza Type B (PCR) (Not Detectd) RSV (PCR) (Not Detectd) SARS-CoV-2 (PCR) (Not Detectd) 08/06/22 08/06/22 08/06/22 Range/Units 11:23 11:23 12:47 WBC 9.7 (3.8-10.6) k/uL RBC 5.08 (3.80-5.40) m/uL Hgb 16.0 (11.4-16.0) gm/dL Hct 48.2 H (34.0-46.0) % MCV 95.0 (80.0-100.0) fL MCH 31.5 (25.0-35.0) pg MCHC 33.2 (31.0-37.0) g/dL RDW 13.0 (11.5-15.5) % Plt Count 157 (150-450) k/uL MPV 8.5 Neutrophils % 75 % Lymphocytes % 15 % Monocytes % 5 % Eosinophils % 3 % Basophils % 0 % Neutrophils # 7.3 (1.3-7.7) k/uL Lymphocytes # 1.4 (1.0-4.8) k/uL Monocytes # 0.5 (0-1.0) k/uL Eosinophils # 0.3 (0-0.7) k/uL Basophils # 0.0 (0-0.2) k/uL PT (9.0-12.0) sec INR (<1.2) APTT (22.0-30.0) sec Sodium (137-145) mmol/L Potassium (3.5-5.1) mmol/L Chloride (98-107) mmol/L Carbon Dioxide (22-30) mmol/L Anion Gap mmol/L BUN (7-17) mg/dL Creatinine (0.52-1.04) mg/dL Est GFR (CKD-EPI)AfAm (>60 ml/min/1.73 sqM) Est GFR (CKD-EPI)NonAf (>60 ml/min/1.73 sqM) Glucose (74-99) mg/dL Plasma Lactic Acid Lauri (0.7-2.0) mmol/L Calcium (8.4-10.2) mg/dL Magnesium (1.6-2.3) mg/dL Total Bilirubin (0.2-1.3) mg/dL AST (14-36) U/L ALT (4-34) U/L Alkaline Phosphatase (38-126) U/L Troponin I (0.000-0.034) ng/mL Total Protein (6.3-8.2) g/dL Albumin (3.5-5.0) g/dL Phenytoin 4.6 ug/mL Influenza Type A (PCR) Not Detected (Not Detectd) Influenza Type B (PCR) Not Detected (Not Detectd) RSV (PCR) Not Detected (Not Detectd) SARS-CoV-2 (PCR) Not Detected (Not Detectd) 08/06/22 Range/Units 12:47 WBC (3.8-10.6) k/uL RBC (3.80-5.40) m/uL Hgb (11.4-16.0) gm/dL Hct (34.0-46.0) % MCV (80.0-100.0) fL MCH (25.0-35.0) pg MCHC (31.0-37.0) g/dL RDW (11.5-15.5) % Plt Count (150-450) k/uL MPV Neutrophils % % Lymphocytes % % Monocytes % % Eosinophils % % Basophils % % Neutrophils # (1.3-7.7) k/uL Lymphocytes # (1.0-4.8) k/uL Monocytes # (0-1.0) k/uL Eosinophils # (0-0.7) k/uL Basophils # (0-0.2) k/uL PT 19.1 H (9.0-12.0) sec INR 1.9 H (<1.2) APTT 30.5 H (22.0-30.0) sec Sodium (137-145) mmol/L Potassium (3.5-5.1) mmol/L Chloride (98-107) mmol/L Carbon Dioxide (22-30) mmol/L Anion Gap mmol/L BUN (7-17) mg/dL Creatinine (0.52-1.04) mg/dL Est GFR (CKD-EPI)AfAm (>60 ml/min/1.73 sqM) Est GFR (CKD-EPI)NonAf (>60 ml/min/1.73 sqM) Glucose (74-99) mg/dL Plasma Lactic Acid Lauri (0.7-2.0) mmol/L Calcium (8.4-10.2) mg/dL Magnesium (1.6-2.3) mg/dL Total Bilirubin (0.2-1.3) mg/dL AST (14-36) U/L ALT (4-34) U/L Alkaline Phosphatase (38-126) U/L Troponin I (0.000-0.034) ng/mL Total Protein (6.3-8.2) g/dL Albumin (3.5-5.0) g/dL Phenytoin ug/mL Influenza Type A (PCR) (Not Detectd) Influenza Type B (PCR) (Not Detectd) RSV (PCR) (Not Detectd) SARS-CoV-2 (PCR) (Not Detectd) Disposition Clinical Impression: Pneumonia, Acute bronchiolitis with bronchospasm Disposition: ADMITTED IP TO THIS HOSP Referrals: Cole Hensley DO [Primary Care Provider] - 1-2 days Time of Disposition: 14:06
[2022-08-06 12:30] LABS: Calcium 9.3 mg/dL (8.4-10.2); Total Bilirubin 0.7 mg/dL (0.2-1.3); Total Protein 7.2 g/dL (6.3-8.2)
--- NOTE | 2022-08-06 12:43 | XR ---
EXAMINATION TYPE: XR chest 2V DATE OF EXAM: 08/06/2022 COMPARISON: Chest x-ray January 14, 2022 HISTORY: Difficulty in breathing. TECHNIQUE: Frontal and lateral views of the chest are obtained. FINDINGS: Low lung volumes redemonstrated. There is no pleural effusion or pneumothorax seen. Retroc ardiac opacity suspected on 2 views. Persistent cardiomegaly with dual-lead pacemaker and atheroscler otic thoracic aorta. The osseous structures are somewhat demineralized. IMPRESSION: Chronic changes and cardiomegaly with posterior left lower lobe opacity suspicious for a cute infiltrate and/or atelectasis. Correlate clinically.
[2022-08-06 12:48] LABS: Magnesium 1.7 mg/dL (1.6-2.3); Potassium 4.6 mmol/L (3.5-5.1)
[2022-08-06 13:24] LABS: INR 1.9 (<1.2); Partial Thromboplastin Time 30.5 sec (22.0-30.0); Prothrombin Time 19.1 sec (9.0-12.0)
[2022-08-06 13:31] LABS: Basophils % (A) 0 %; Eosinophils # (A) 0.3 k/uL (0-0.7); Eosinophils % (A) 3 %; HCT 48.2 % (34.0-46.0); Lymphocytes # (A) 1.4 k/uL (1.0-4.8); Lymphocytes % (A) 15 %; MCH 31.5 pg (25.0-35.0); MCHC 33.2 g/dL (31.0-37.0); Mean Platelet Volume 8.5; Monocytes # (A) 0.5 k/uL (0-1.0); Monocytes % (A) 5 %; Neutrophils # (A) 7.3 k/uL (1.3-7.7); Neutrophils % (A) 75 %; Platelet Count 157 k/uL (150-450); RBC 5.08 m/uL (3.80-5.40); WBC 9.7 k/uL (3.8-10.6)
[2022-08-06] MEDS ORDERED: PNEUMONIA PROTOCOL UTILIZED 1 EACH MISC PO PRN (14:06)
[2022-08-06] MEDS ORDERED: LEVOFLOXACIN 750MG-D5W PMX 750 MG in DEXTROSE/WATER 1 150ML.BAG IVPB STA (14:06)
[2022-08-06] MEDS: IPRATROPIUM-ALBUTEROL 3 ML NEB INHALATION PRN ×3 (15:22→23:53)
[2022-08-06] MEDS: methylPREDNISolone SOD SUCCI 125 MG/2 ML VIAL IV SCH ×2 (18:42→23:39)
[2022-08-07] MEDS: GABAPENTIN 100 MG CAP PO SCH ×4 (01:40→21:34)
[2022-08-07] MEDS: METOPROLOL SUCCINATE (ER) 50 MG TAB.ER.24H PO SCH ×2 (01:41→21:40)
[2022-08-07] MEDS: ACETAMINOPHEN TAB 325 MG TAB PO PRN ×2 (01:41→21:33)
[2022-08-07] MEDS: methocarbamoL 750 MG TAB PO SCH ×3 (01:43→21:20)
[2022-08-07] MEDS ORDERED: WARFARIN 5 MG TAB PO ONE (01:45)
[2022-08-07] MEDS: PHENYTOIN SODIUM EXTENDED 100 MG CAP PO SCH ×3 (02:26→21:20)
[2022-08-07] MEDS: DILTIAZEM CD 180 MG CAP.ER.24H PO SCH ×2 (02:26→21:20)
[2022-08-07] MEDS: methylPREDNISolone SOD SUCCI 125 MG/2 ML VIAL IV SCH ×3 (06:23→19:34)
[2022-08-07] MEDS: LEVOTHYROXINE 75 MCG TAB PO SCH (06:23)
[2022-08-07 07:02] LABS: INR 1.5 (<1.2); Prothrombin Time 15.4 sec (9.0-12.0)
--- NOTE | 2022-08-07 08:53 | XR ---
EXAMINATION TYPE: XR chest 2V DATE OF EXAM: 08/07/2022 COMPARISON: 08/06/2022 TECHNIQUE: PA and lateral views submitted. HISTORY: Cough FINDINGS: The lungs are clear and there is no pneumothorax, pleural effusion, or focal pneumonia. Heart size enlarged and no overt failure. Osseous structures demonstrate hypertrophic and degenerative changes o f the spine. Cardiac device noted and there is ectasia of the aorta with atherosclerotic change. IMPRESSION: 1. No acute process. 2. Cardiomegaly 3. Mild aneurysmal dilation thoracic aorta. 4. Prominent mediastinum may represent ectatic vasculature, consider CT scan chest
[2022-08-07] MEDS ORDERED: DEXTROSE 50% SYRINGE 50 ML IVP PRN ×2 (08:55)
[2022-08-07] MEDS: METOPROLOL SUCCINATE (ER) 25 MG TAB.ER.24H PO SCH (09:11)
[2022-08-07] MEDS: PANTOPRAZOLE 40 MG/10 ML VIAL IVP SCH (09:11)
[2022-08-07] MEDS: LORATADINE 10 MG TAB PO SCH (09:11)
[2022-08-07 11:47] LABS: Glucose,Whole Blood 129 mg/dL (70-110)
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
[2022-08-07] MEDS: INSULIN ASPART (NovoLOG) 100 UNIT/ML VIAL SQ SCH ×3 (12:17→21:19)
[2022-08-07] MEDS: IPRATROPIUM-ALBUTEROL 3 ML NEB INHALATION SCH ×3 (12:59→19:57)
[2022-08-07 17:05] LABS: Glucose,Whole Blood 159 mg/dL (70-110)
[2022-08-07] MEDS ORDERED: WARFARIN 5 MG TAB PO SCH (18:00)
[2022-08-07] MEDS ORDERED: WARFARIN 2.5 MG TAB PO ONE (18:00)
[2022-08-07] MEDS ORDERED: WARFARIN 2.5 MG TAB PO SCH (18:00)
[2022-08-07 20:51] LABS: Glucose,Whole Blood 153 mg/dL (70-110)
[2022-08-07] MEDS: CALCIUM CARBONATE 500 MG CHEWABLE PO SCH (21:20)
[2022-08-08] MEDS: methylPREDNISolone SOD SUCCI 125 MG/2 ML VIAL IV SCH ×4 (00:53→17:25)
[2022-08-08 05:49] LABS: Glucose,Whole Blood 145 mg/dL (70-110)
[2022-08-08] MEDS: INSULIN ASPART (NovoLOG) 100 UNIT/ML VIAL SQ SCH ×4 (06:08→20:50)
[2022-08-08] MEDS: LEVOTHYROXINE 75 MCG TAB PO SCH (06:57)
[2022-08-08] MEDS: ACETAMINOPHEN TAB 325 MG TAB PO PRN (08:45)
[2022-08-08] MEDS: PANTOPRAZOLE 40 MG/10 ML VIAL IVP SCH (08:45)
[2022-08-08] MEDS: LORATADINE 10 MG TAB PO SCH (08:46)
[2022-08-08] MEDS: METOPROLOL SUCCINATE (ER) 25 MG TAB.ER.24H PO SCH (08:46)
[2022-08-08] MEDS: GABAPENTIN 100 MG CAP PO SCH ×3 (08:46→19:55)
[2022-08-08] MEDS: LEVOFLOXACIN 750 MG TAB PO SCH (08:47)
[2022-08-08] MEDS: methocarbamoL 750 MG TAB PO SCH ×2 (08:47→19:55)
[2022-08-08] MEDS: PHENYTOIN SODIUM EXTENDED 100 MG CAP PO SCH ×2 (08:48→19:55)
[2022-08-08] MEDS: IPRATROPIUM-ALBUTEROL 3 ML NEB INHALATION SCH ×4 (09:25→21:36)
[2022-08-08 10:33] LABS: INR 1.4 (0.90-1.11); Prothrombin Time 15.6 sec (9.9-11.9)
[2022-08-08 10:50] LABS: Glucose,Whole Blood 306 mg/dL (70-110)
--- NOTE | 2022-08-08 11:35 | PN ---
PROGRESS NOTE DATE OF SERVICE: 08/08/2022 SUBJECTIVE: This is an 82-year-old woman, who was admitted with shortness of breath and has left lower lobe pneumonia. The patient also had history of asthma. No chest pain. No palpitations. No fever. OBJECTIVE: VITAL SIGNS: Pulse is 64, blood pressure 170/67, respirations 17. CHEST: A few scattered rhonchi and crackles. ABDOMEN: Soft. NERVOUS SYSTEM: Nonfocal. LABORATORY DATA: Noted. Sugars are 306. ASSESSMENT: 1. Acute left lower lobe pneumonia. 2. Asthma. 3. Hypertension. 4. Pulmonary hypertension. 5. Chronic atrial flutter. 6. Multiple medical issues. RECOMMENDATIONS AND DISCUSSION: Recommended to continue current medications and symptomatic treatment. Continue with bronchodilators. Continue with the antibiotics. Closely follow with Pulmonary. Further recommendations to follow. MMODL / IJN: [id number] /
[2022-08-08] MEDS: DOCUSATE 100 MG CAP PO PRN ×2 (11:48→20:08)
[2022-08-08 12:29] LABS: INR 1.6 (<1.2)
[2022-08-08] MEDS: SYMBICORT 160-4.5 MCG INHALER INHALATION SCH ×2 (12:54→21:36)
[2022-08-08 16:34] LABS: Glucose,Whole Blood 119 mg/dL (70-110)
[2022-08-08] MEDS ORDERED: WARFARIN 5 MG TAB PO ONE (18:00)
[2022-08-08] MEDS: ACETAMINOPHEN TAB 325 MG TAB PO SCH (19:54)
[2022-08-08] MEDS: METOPROLOL SUCCINATE (ER) 50 MG TAB.ER.24H PO SCH (19:55)
[2022-08-08] MEDS: CALCIUM CARBONATE 500 MG CHEWABLE PO SCH (19:55)
[2022-08-08] MEDS: MULTIVITAMINS, THERA 1 EACH TAB PO SCH (19:55)
[2022-08-08] MEDS: DILTIAZEM CD 180 MG CAP.ER.24H PO SCH (19:55)
[2022-08-08] MEDS: TROSPIUM CHLORIDE 20 MG TABLET PO SCH (19:55)
[2022-08-08 20:38] LABS: Glucose,Whole Blood 228 mg/dL (70-110)
[2022-08-08] MEDS ORDERED: CALCIUM CARBONATE 500 MG CHEWABLE PO SCH (21:00)
[2022-08-09] MEDS: methylPREDNISolone SOD SUCCI 125 MG/2 ML VIAL IV SCH ×5 (00:04→23:57)
[2022-08-09] MEDS: INSULIN ASPART (NovoLOG) 100 UNIT/ML VIAL SQ SCH ×4 (06:42→21:42)
[2022-08-09 06:43] LABS: Glucose,Whole Blood 136 mg/dL (70-110)
[2022-08-09] MEDS: LEVOTHYROXINE 75 MCG TAB PO SCH (06:47)
[2022-08-09] MEDS: LORATADINE 10 MG TAB PO SCH (08:34)
[2022-08-09] MEDS: GABAPENTIN 100 MG CAP PO SCH ×3 (08:34→21:41)
[2022-08-09] MEDS: ACETAMINOPHEN TAB 325 MG TAB PO SCH ×2 (08:35→21:43)
[2022-08-09] MEDS: PANTOPRAZOLE 40 MG/10 ML VIAL IVP SCH (08:35)
[2022-08-09] MEDS: METOPROLOL SUCCINATE (ER) 25 MG TAB.ER.24H PO SCH (08:35)
[2022-08-09] MEDS: PHENYTOIN SODIUM EXTENDED 100 MG CAP PO SCH ×2 (08:36→21:41)
[2022-08-09] MEDS: methocarbamoL 750 MG TAB PO SCH ×2 (08:36→21:42)
[2022-08-09] MEDS: SYMBICORT 160-4.5 MCG INHALER INHALATION SCH ×2 (08:40→20:11)
[2022-08-09] MEDS: IPRATROPIUM-ALBUTEROL 3 ML NEB INHALATION SCH ×4 (08:41→20:11)
[2022-08-09] MEDS ORDERED: LORATADINE 10 MG TAB PO SCH (09:00)
[2022-08-09 10:41] LABS: Basophils # (A) 0.01 X 10*3/uL (0.00-0.10); Basophils % (A) 0.1 %; Eosinophils # (A) 0 X 10*3/uL (0.04-0.35); Eosinophils % (A) 0 %; HCT 42.3 % (37.2-46.3); HGB 13.4 g/dL (12.0-15.0); Immature Grans, Automated 0.5 %; Lymphocytes # (A) 0.75 X 10*3/uL (0.90-5.00); Lymphocytes % (A) 5.9 %; MCH 31.3 pg (27.0-32.0); MCHC 31.7 g/dL (32.0-37.0); MCV 98.8 fL (80.0-97.0); Mean Platelet Volume 11.4 fL (9.5-12.2); Monocytes # (A) 0.72 X 10*3/uL (0.20-1.00); Monocytes % (A) 5.7 %; NRBC Per 100 WBC 0 /100 WBCS (0.0-0.0); Neutrophils # (A) 11.19 X 10*3/uL (1.80-7.70); Neutrophils % (A) 87.8 %; Platelet Count 168 X 10*3/uL (140-440); RBC 4.28 X 10*6/uL (4.10-5.20); RDW 13.5 % (11.5-14.5); WBC 12.74 X 10*3/uL (4.50-10.00)
[2022-08-09 11:10] LABS: Glucose,Whole Blood 137 mg/dL (70-110)
[2022-08-09 12:04] LABS: African American GFR (CKD) 48.9 (60.0-200.0); Anion Gap 11.5 mmol/L (10.00-18.00); Blood Urea Nitrogen 36.3 mg/dL (9.0-27.0); Non-African American GFR(CKD) 42.2 (60.0-200.0); Potassium 4.7 mmol/L (3.5-5.5)
[2022-08-09 12:57] LABS: INR 1.81 (0.90-1.11)
--- NOTE | 2022-08-09 14:12 | PN ---
PROGRESS NOTE DATE OF SERVICE: 08/09/2022 SUBJECTIVE: This 82-year-old woman sent with acute left lower lobe pneumonia is being closely monitored. No chest pain. No palpitations. No fever. OBJECTIVE: VITAL SIGNS: Pulse is 70, blood pressure 156/69, respirations 17. CHEST: A few scattered rhonchi and crackles. ABDOMEN: Soft. NERVOUS SYSTEM: Nonfocal. LABORATORY DATA: Reviewed. ASSESSMENT: 1. Acute left lower lobe pneumonia. 2. Asthma. 3. Hypertension. 4. Pulmonary hypertension. 5. Chronic atrial fibrillation. 6. Multiple medical issues. RECOMMENDATIONS: Recommended to continue current management and symptomatic treatment. Otherwise, recommend repeat labs in the morning. Continue with antibiotics. Dr. Olguin will follow in the morning. MMODL / IJN: [id number] /
[2022-08-09 17:13] LABS: Glucose,Whole Blood 183 mg/dL (70-110)
[2022-08-09] MEDS ORDERED: WARFARIN 5 MG TAB PO ONE (18:00)
[2022-08-09 20:47] LABS: Glucose,Whole Blood 165 mg/dL (70-110)
[2022-08-09] MEDS: TROSPIUM CHLORIDE 20 MG TABLET PO SCH (21:40)
[2022-08-09] MEDS: METOPROLOL SUCCINATE (ER) 50 MG TAB.ER.24H PO SCH (21:41)
[2022-08-09] MEDS: MULTIVITAMINS, THERA 1 EACH TAB PO SCH (21:41)
[2022-08-09] MEDS: CALCIUM CARBONATE 500 MG CHEWABLE PO SCH (21:42)
[2022-08-09] MEDS: DILTIAZEM CD 180 MG CAP.ER.24H PO SCH (21:42)
[2022-08-10] MEDS: ACETAMINOPHEN TAB 325 MG TAB PO PRN ×2 (03:39→12:00)
[2022-08-10 05:50] LABS: Glucose,Whole Blood 141 mg/dL (70-110)
[2022-08-10] MEDS: methylPREDNISolone SOD SUCCI 125 MG/2 ML VIAL IV SCH ×3 (06:13→17:21)
[2022-08-10] MEDS: LEVOTHYROXINE 75 MCG TAB PO SCH (06:13)
[2022-08-10] MEDS: INSULIN ASPART (NovoLOG) 100 UNIT/ML VIAL SQ SCH ×4 (06:14→21:18)
[2022-08-10 06:37] LABS: INR 2.7 (<1.2); Prothrombin Time 26.1 sec (9.0-12.0)
[2022-08-10] MEDS: SYMBICORT 160-4.5 MCG INHALER INHALATION SCH ×2 (07:44→20:24)
[2022-08-10] MEDS: IPRATROPIUM-ALBUTEROL 3 ML NEB INHALATION SCH ×4 (07:44→20:24)
[2022-08-10] MEDS: ACETAMINOPHEN TAB 325 MG TAB PO SCH ×2 (07:57→21:17)
[2022-08-10] MEDS: GABAPENTIN 100 MG CAP PO SCH ×3 (07:57→21:18)
[2022-08-10] MEDS: PANTOPRAZOLE 40 MG/10 ML VIAL IVP SCH (07:57)
[2022-08-10] MEDS: METOPROLOL SUCCINATE (ER) 25 MG TAB.ER.24H PO SCH (07:58)
[2022-08-10] MEDS: LORATADINE 10 MG TAB PO SCH (07:58)
[2022-08-10] MEDS: methocarbamoL 750 MG TAB PO SCH ×2 (07:58→21:40)
[2022-08-10] MEDS: LEVOFLOXACIN 750 MG TAB PO SCH (07:58)
[2022-08-10] MEDS: PHENYTOIN SODIUM EXTENDED 100 MG CAP PO SCH ×2 (07:59→21:17)
[2022-08-10 08:59] LABS: Basophils # (A) 0.01 X 10*3/uL (0.00-0.10); Basophils % (A) 0.1 %; Eosinophils # (A) 0 X 10*3/uL (0.04-0.35); Eosinophils % (A) 0 %; HCT 43.4 % (37.2-46.3); HGB 13.9 g/dL (12.0-15.0); Immature Grans, Automated 0.8 %; Lymphocytes # (A) 0.69 X 10*3/uL (0.90-5.00); MCH 31.3 pg (27.0-32.0); MCV 97.7 fL (80.0-97.0); Mean Platelet Volume 11.2 fL (9.5-12.2); Monocytes # (A) 0.57 X 10*3/uL (0.20-1.00); Monocytes % (A) 5.8 %; NRBC Per 100 WBC 0 /100 WBCS (0.0-0.0); Neutrophils # (A) 8.55 X 10*3/uL (1.80-7.70); Neutrophils % (A) 86.3 %; Platelet Count 167 X 10*3/uL (140-440); RBC 4.44 X 10*6/uL (4.10-5.20); RDW 13.3 % (11.5-14.5)
[2022-08-10 09:19] LABS: Anion Gap 8.7 mmol/L (10.00-18.00); BUN/Creat Ratio 42.67 Ratio (12.00-20.00); Blood Urea Nitrogen 38.4 mg/dL (9.0-27.0); Carbon Dioxide 30.3 mmol/L (20.0-27.5); Non-African American GFR(CKD) 60.4 (60.0-200.0); Potassium 5.1 mmol/L (3.5-5.5)
[2022-08-10 11:23] LABS: Glucose,Whole Blood 200 mg/dL (70-110)
[2022-08-10 16:38] LABS: Glucose,Whole Blood 141 mg/dL (70-110)
[2022-08-10] MEDS ORDERED: WARFARIN 1 MG TAB PO ONE (18:00)
[2022-08-10 20:49] LABS: Glucose,Whole Blood 185 mg/dL (70-110)
[2022-08-10] MEDS: TROSPIUM CHLORIDE 20 MG TABLET PO SCH (21:17)
[2022-08-10] MEDS: METOPROLOL SUCCINATE (ER) 50 MG TAB.ER.24H PO SCH (21:17)
[2022-08-10] MEDS: MULTIVITAMINS, THERA 1 EACH TAB PO SCH (21:17)
[2022-08-10] MEDS: CALCIUM CARBONATE 500 MG CHEWABLE PO SCH (21:17)
[2022-08-10] MEDS: DILTIAZEM CD 180 MG CAP.ER.24H PO SCH (21:40)
[2022-08-11] MEDS: methylPREDNISolone SOD SUCCI 125 MG/2 ML VIAL IV SCH ×2 (01:33→06:05)
[2022-08-11] MEDS: ACETAMINOPHEN TAB 325 MG TAB PO SCH (03:33)
[2022-08-11 04:03] VITALS: RESP 16
[2022-08-11] MEDS: LEVOTHYROXINE 75 MCG TAB PO SCH (06:05)
[2022-08-11 06:15] LABS: Glucose,Whole Blood 166 mg/dL (70-110)
[2022-08-11] MEDS: INSULIN ASPART (NovoLOG) 100 UNIT/ML VIAL SQ SCH ×2 (06:57→13:49)
[2022-08-11 07:22] LABS: INR 3.4 (<1.2); Prothrombin Time 32.8 sec (9.0-12.0)
[2022-08-11] MEDS: PANTOPRAZOLE 40 MG/10 ML VIAL IVP SCH (08:06)
[2022-08-11] MEDS: SYMBICORT 160-4.5 MCG INHALER INHALATION SCH (08:49)
[2022-08-11] MEDS: IPRATROPIUM-ALBUTEROL 3 ML NEB INHALATION SCH ×2 (08:49→12:05)
[2022-08-11] MEDS: LORATADINE 10 MG TAB PO SCH (10:02)
[2022-08-11] MEDS: methocarbamoL 750 MG TAB PO SCH (10:02)
[2022-08-11] MEDS: PHENYTOIN SODIUM EXTENDED 100 MG CAP PO SCH (10:02)
[2022-08-11] MEDS: GABAPENTIN 100 MG CAP PO SCH (10:02)
[2022-08-11] MEDS: METOPROLOL SUCCINATE (ER) 25 MG TAB.ER.24H PO SCH (10:03)
[2022-08-11] MEDS: hydrALAZINE HCL 50 MG TAB PO SCH ×2 (10:09→13:57)
[2022-08-11 11:50] LABS: Glucose,Whole Blood 165 mg/dL (70-110)
[2022-08-11 12:20] VITALS: BP 165/60; PULSE 54; TEMP 97.6
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
[2022-08-11] MEDS ORDERED: WARFARIN 0.5 MG TAB PO ONE (18:00)
[2022-08-12] MEDS ORDERED: predniSONE 20 MG TAB PO SCH (09:00)
== END 2022-08-11 14:26 | disposition home health service (06) | DRG 194 ==
LOC: EC 10:34 → 4SSUR 14:08 → OBSVTOIN 08-10 09:00
PROVIDERS: ADMIT Family Medicine; ATTEND Family Medicine
DX: J18.9 Pneumonia, unspecified organism (principal); I48.20 Chronic atrial fibrillation, unspecified; Z68.42 Body mass index [BMI] 45.0-49.9, adult; I48.92 Unspecified atrial flutter; Z20.822 Contact with and (suspected) exposure to COVID-19; E03.9 Hypothyroidism, unspecified; E66.01 Morbid (severe) obesity due to excess calories; F32.A Depression, unspecified; I11.0 Hypertensive heart disease with heart failure; I50.9 Heart failure, unspecified; G40.909 Epilepsy, unspecified, not intractable, without status epilepticus; K21.9 Gastro-esophageal reflux disease without esophagitis; I27.20 Pulmonary hypertension, unspecified; M79.7 Fibromyalgia; T38.0X5A Adverse effect of glucocorticoids and synthetic analogues, initial encounter; Z79.01 Long term (current) use of anticoagulants; Z79.890 Hormone replacement therapy; Z79.899 Other long term (current) drug therapy; Z86.74 Personal history of sudden cardiac arrest; Z86.14 Personal history of Methicillin resistant Staphylococcus aureus infection
CPT/HCPCS: 36410; 36415; 71046; 76937; 80048; 80053; 80185; 83036; 83605; 83735; 84484; 85025; 85610; 85730; 87070; 87205; 87449; 87636; 93005; 94640; 94760; 96365; 96366; 96375; 96376; 99285

== ENCOUNTER → 2022-11-19 | Outpatient (CLI) | payer MEDICARE, BC ==
--- NOTE | 2022-11-19 12:24 | XR ---
EXAMINATION TYPE: XR chest 2V DATE OF EXAM: 11/19/2022 COMPARISON: 10/19/2019 TECHNIQUE: PA and lateral views submitted. HISTORY: Cough FINDINGS: The lungs are clear and there is no pneumothorax, pleural effusion, or focal pneumonia. The heart is enlarged. Cardiac device noted. Prominent mediastinum. Inspiration. Surgical clips in the abdomen. N o overt failure. Osseous structures demonstrate hypertrophic and degenerative changes of the spine. Atherosclerotic change of the aorta with patient. Diffuse osteopenia and arthropathy of the shoulders . A chronic appearing resorption of the distal left clavicle. Prominence of the pulmonary arteries ma y reflect pulmonary arterial hypertension. IMPRESSION: 1. Cardiomegaly. Prominent upper mediastinum may be related to ectatic vasculature. Findings stable d ating back to 1999
[2022-11-19 20:51] LABS: BUN/Creat Ratio 16.73 Ratio (12.00-20.00); Blood Urea Nitrogen 18.4 mg/dL (9.0-27.0); Calcium 9.8 mg/dL (8.7-10.3); Carbon Dioxide 34.5 mmol/L (21.6-31.8); Chloride 101 mmol/L (96-109); Glucose 81 mg/dL (70-110); Magnesium 2.2 mg/dL (1.5-2.4); Phenytoin (Dilantin) 3.7 UG/ML (10.0-20.0); Potassium 4.3 mmol/L (3.5-5.5); Sodium 146 mmol/L (135-145)
== END | disposition home or self-care (01) ==
LOC: RADXRMAIN 12:01
PROVIDERS: ATTEND Family Medicine
DX: I51.7 Cardiomegaly (principal); J90 Pleural effusion, not elsewhere classified; R25.1 Tremor, unspecified; R05.9 Cough, unspecified
CPT/HCPCS: 71046; 80048; 80185; 83735

== ENCOUNTER 2022-12-07 09:29 | Inpatient (IN) | payer MEDICARE, BC ==
--- NOTE | 2022-12-07 10:30 | ED ---
General Adult HPI - General Chief complaint: Nausea/Vomiting/Diarrhea Stated complaint: NAUSEA Time Seen by Provider: 12/07/22 09:44 Source: EMS Mode of arrival: EMS Limitations: no limitations - History of Present Illness Initial comments: Dictation was produced using [employer] dictation software. please excuse any grammatical, word or spelling errors. Chief Complaint: 82-year-old female multiple coronaries presents to the ER for cough, nausea and decreased appetite History of Present Illness: Patient is an 82-year-old female she has cough, decreased appetite nausea. She has had no vomiting states that she has been retching. Since that her symptoms are severe enough that she is unable to tolerate oral medications. Shows multiple medications including Dilantin, Coumadin. Patient also has history of fibromyalgia she has complaint of total body pain. Denies any fever or constitutional symptoms. No other sick contacts. The ROS documented in this emergency department record has been reviewed and confirmed by me. Those systems with pertinent positive or negative responses have been documented in the HPI. All other systems are other negative and/or noncontributory. - Related Data Home Medications Medication Instructions Recorded Confirmed Diltiazem Cd [Cardizem CD] 180 mg PO HS 03/30/15 10/18/22 Levothyroxine Sodium [Synthroid] 75 mcg PO DAILY 03/30/15 10/18/22 Phenytoin Sodium Extended 100 mg PO BID 03/30/15 10/18/22 [Dilantin] Acetaminophen [Tylenol Arthritis] 650 mg PO BID 08/06/22 10/18/22 Calcium Carbonate [Calcium] 600 mg PO HS 08/06/22 10/18/22 Cetirizine HCl [Zyrtec] 10 mg PO DAILY 08/06/22 10/18/22 Docusate [Colace] 100 mg PO HS PRN 08/06/22 10/18/22 Gabapentin [Neurontin] 200 mg PO TID 08/06/22 10/18/22 Metoprolol Succinate (ER) [Toprol 25 mg PO DAILY 08/06/22 10/18/22 XL] Metoprolol Succinate (ER) [Toprol 50 mg PO HS 08/06/22 10/18/22 XL] Multivit-Min/Iron/Folic/Lutein 1 tab PO HS 08/06/22 10/18/22 [Centrum Silver Women Tablet] Solifenacin Succinate [Vesicare] 5 mg PO HS 08/06/22 10/18/22 Warfarin [Coumadin] 2.5 mg PO SUTUTHSA@209908/06/22 10/18/22 methocarbamoL [Robaxin-750] 750 mg PO BID PRN 08/06/22 10/18/22 Warfarin [Coumadin] 5 mg PO MOWEFR@209910/18/22 10/18/22 Previous Rx's Medication Instructions Recorded Budesonide-Formot 160-4.5 Mcg 2 puff INHALATION RT-BID #1 each 08/11/22 [Symbicort 160-4.5 Mcg Inhaler] predniSONE 10 mg PO DAILY #20 tab 10/20/22 Allergies Allergy/AdvReac Type Severity Reaction Status Date / Time cephalexin monohydrate Allergy Nausea & Verified 12/07/22 09:36 [From Keflex] Vomiting codeine Allergy Unknown Verified 12/07/22 09:36 Penicillins Allergy Rash/Hives Verified 12/07/22 09:36 & Swelling all over Review of Systems ROS Statement: Those systems with pertinent positive or pertinent negative responses have been documented in the HPI. ROS Other: All systems not noted in ROS Statement are negative. Past Medical History Past Medical History: Atrial Flutter, Asthma, Heart Failure, GERD/Reflux, Hypertension, Pneumonia, Seizure Disorder, Thyroid Disorder Additional Past Medical History / Comment(s): pt sates 2 1/2 years ago she had cardiac arrest., fibromyalgia History of Any Multi-Drug Resistant Organisms: MRSA Date of last positivie culture/infection: 2007 MDRO Source:: left knee Past Surgical History: Section, Hysterectomy, Orthopedic Surgery, Pacemaker Additional Past Surgical History / Comment(s): both knees, rotator cuff left Past Anesthesia/Blood Transfusion Reactions: No Reported Reaction, Postoperative Nausea & Vomiting (PONV) Type of Cardiac Device: Permanent Pacemaker Device Placement Date:: 2014 Past Psychological History: Depression Smoking Status: Never smoker Past Alcohol Use History: None Reported Past Drug Use History: None Reported General Exam - General Exam Comments Initial Comments: PHYSICAL EXAM: General Impression: Alert and oriented x3, not in acute distress HEENT: Normocephalic atraumatic, extra-ocular movements intact, pupils equal and reactive to light bilaterally, mucous membranes moist. Cardiovascular: Heart regular rate and rhythm Chest: Able to complete full sentences, no retractions, no tachypnea, right- sided lung crackles Abdomen: abdomen soft, non-tender, non-distended, no organomegaly Musculoskeletal: Pulses present and equal in all extremities, no peripheral edema Motor: no focal deficits noted Neurological: CN II-XII grossly intact, no focal motor or sensory deficits noted Skin: Intact with no visualized rashes Psych: Normal affect and mood Limitations: no limitations Course Vital Signs 12/07/22 12/07/22 09:30 09:36 Temperature 98.9 F Pulse Rate 76 Respiratory 20 Rate Blood Pressure 142/62 O2 Sat by Pulse 90 L 96 Oximetry Medical Decision Making - Medical Decision Making Was pt. sent in by a medical professional or institution (, PA, KNOCK UP ASSEMBLER, urgent care, hospital, or halfway...) When possible be specific @ -No Did you speak to anyone other than the patient for history (EMS, parent, family, police, friend...)? What history was obtained from this source @ -No Did you review nursing and triage notes (agree or disagree)? Why? @ -I reviewed and agree with nursing and triage notes Were old charts reviewed (outside hosp., previous admission, EMS record, old EK G, old radiological studies, urgent care reports/EKG's, halfway records)? Report findings @ -No old charts were reviewed Differential Diagnosis (chest pain, altered mental status, abdominal pain women, abdominal pain men, vaginal bleeding, musculoskeletal, weakness, fever, dyspnea, syncope, headache, dizziness, GI bleed, back pain, seizure, CVA, palpatations, mental health)? @ -Differential Dyspnea: Coronary syndrome, arrhythmia, tamponade, asthma, COPD, pulmonary embolism, pneumonia, pneumothorax, pulmonary effusion, anaphylaxis, diabetic ketoacidosis, flailed chest, pulmonary contusion, diaphragmatic rupture, anemia, neuromus cular, this is not meant to be an all-inclusive list. EKG interpreted by me (3pts min.). @ -see above X-rays interpreted by me (1pt min.). @ -Chest x-ray is unremarkable. CT interpreted by me (1pt min.). @ -None done U/S interpreted by me (1pt. min.). @ -None done What testing was considered but not performed or refused? (CT, X-rays, U/S, labs)? Why? @ -None What meds were considered but not given or refused? Why? @ -None Did you discuss the management of the patient with other professionals (professionals i.e. , PA, KNOCK UP ASSEMBLER, lab, RT, psych nurse, professor of social work, shirt finisher, teacher, first aid officer, special education case manager)? Give summary @ -Discussed with Dr. Hernandez for admission Was smoking cessation discussed for >3mins.? @ -No Was critical care preformed (if so, how long)? @ -No Were there social determinants of health that impacted care today? How? (Homelessness, low income, unemployed, alcoholism, drug addiction, transportation, low edu. Level, literacy, decrease access to med. care, prison, rehab)? @ -No Was there de-escalation of care discussed even if they declined (Discuss DNR or withdrawal of care, Hospice)? DNR status @ -No What co-morbidities impacted this encounter? (DM, HTN, Smoking, COPD, CAD, Cancer, CVA, ARF, Chemo, Hep., AIDS, mental health diagnosis, sleep apnea, morbid obesity)? @ -None Was patient admitted / discharged? Hospital course, mention meds given and route, prescriptions, significant lab abnormalities, going to OR and other pertinent info. @ -82-year-old female presents emergency department for respiratory symptoms. Vital signs shows 90% on room air. She is 96 on 2 L nasal cannula. Laboratory evaluation obtained. Troponin 0.085, covered positive. Chest x-ray is no nacute. Patient be admitted for social troponins. She does not have any ACS- type symptoms. Patient also need respiratory monitoring. Undiagnosed new problem with uncertain prognosis? @ -No Drug Therapy requiring intensive monitoring for toxicity (Heparin, Nitro, Insulin, Cardizem)? @ -No Were any procedures done? @ -No Diagnosis/symptom? Acute, or Chronic, or Acute on Chronic? Uncomplicated (without systemic symptoms) or Complicated (systemic symptoms)? @ -1. COVID-19, elevated troponin Side effects of treatment? @ -No Exacerbation, Progression, or Severe Exacerbation? @ -No Poses a threat to life or bodily function? How? (Chest pain, [place], HI, pneumonia, PE, COPD, DKA, ARF, appy, cholecystitis, CVA, Diverticulitis, Homicidal, Suicidal, threat to staff... and all critical care pts) @ -No - Lab Data Result diagrams: 12/07/22 10:24 12/07/22 10:24 Lab Results 12/07/22 12/07/22 12/07/22 Range/Units 10:24 10:24 10:24 WBC 9.1 (3.8-10.6) k/uL RBC 4.35 (3.80-5.40) m/uL Hgb 13.5 (11.4-16.0) gm/dL Hct 41.5 (34.0-46.0) % MCV 95.4 (80.0-100.0) fL MCH 31.0 (25.0-35.0) pg MCHC 32.5 (31.0-37.0) g/dL RDW 12.8 (11.5-15.5) % Plt Count 158 (150-450) k/uL MPV 9.1 Neutrophils % 67 % Lymphocytes % 17 % Monocytes % 12 % Eosinophils % 0 % Basophils % 0 % Neutrophils # 6.1 (1.3-7.7) k/uL Lymphocytes # 1.5 (1.0-4.8) k/uL Monocytes # 1.1 H (0-1.0) k/uL Eosinophils # 0.0 (0-0.7) k/uL Basophils # 0.0 (0-0.2) k/uL Sodium 139 (137-145) mmol/L Potassium 4.0 (3.5-5.1) mmol/L Chloride 106 (98-107) mmol/L Carbon Dioxide 26 (22-30) mmol/L Anion Gap 7 mmol/L BUN 16 (7-17) mg/dL Creatinine 0.83 (0.52-1.04) mg/dL Est GFR (CKD-EPI)AfAm 77 (>60 ml/min/1.73 sqM) Est GFR (CKD-EPI)NonAf 67 (>60 ml/min/1.73 sqM) Glucose 85 (74-99) mg/dL Plasma Lactic Acid Lauri 1.2 (0.7-2.0) mmol/L Calcium 8.4 (8.4-10.2) mg/dL Magnesium 1.6 (1.6-2.3) mg/dL Total Bilirubin 0.7 (0.2-1.3) mg/dL AST 35 (14-36) U/L ALT 12 (4-34) U/L Alkaline Phosphatase 81 (38-126) U/L Troponin I (0.000-0.034) ng/mL Total Protein 6.1 L (6.3-8.2) g/dL Albumin 3.2 L (3.5-5.0) g/dL Phenytoin <3.0 ug/mL Influenza Type A (PCR) (Not Detectd) Influenza Type B (PCR) (Not Detectd) RSV (PCR) (Not Detectd) SARS-CoV-2 (PCR) (Not Detectd) 12/07/22 12/07/22 Range/Units 10:24 10:24 WBC (3.8-10.6) k/uL RBC (3.80-5.40) m/uL Hgb (11.4-16.0) gm/dL Hct (34.0-46.0) % MCV (80.0-100.0) fL MCH (25.0-35.0) pg MCHC (31.0-37.0) g/dL RDW (11.5-15.5) % Plt Count (150-450) k/uL MPV Neutrophils % % Lymphocytes % % Monocytes % % Eosinophils % % Basophils % % Neutrophils # (1.3-7.7) k/uL Lymphocytes # (1.0-4.8) k/uL Monocytes # (0-1.0) k/uL Eosinophils # (0-0.7) k/uL Basophils # (0-0.2) k/uL Sodium (137-145) mmol/L Potassium (3.5-5.1) mmol/L Chloride (98-107) mmol/L Carbon Dioxide (22-30) mmol/L Anion Gap mmol/L BUN (7-17) mg/dL Creatinine (0.52-1.04) mg/dL Est GFR (CKD-EPI)AfAm (>60 ml/min/1.73 sqM) Est GFR (CKD-EPI)NonAf (>60 ml/min/1.73 sqM) Glucose (74-99) mg/dL Plasma Lactic Acid Lauri (0.7-2.0) mmol/L Calcium (8.4-10.2) mg/dL Magnesium (1.6-2.3) mg/dL Total Bilirubin (0.2-1.3) mg/dL AST (14-36) U/L ALT (4-34) U/L Alkaline Phosphatase (38-126) U/L Troponin I 0.085 H* (0.000-0.034) ng/mL Total Protein (6.3-8.2) g/dL Albumin (3.5-5.0) g/dL Phenytoin ug/mL Influenza Type A (PCR) Not Detected (Not Detectd) Influenza Type B (PCR) Not Detected (Not Detectd) RSV (PCR) Not Detected (Not Detectd) SARS-CoV-2 (PCR) Detected A (Not Detectd) Disposition Clinical Impression: COVID-19, Elevated troponin Disposition: ADMITTED IP TO THIS [facility] Condition: Fair Referrals: Cole Hensley DO [Primary Care Provider] - 1-2 days Decision Time: 12:15
[2022-12-07 10:41] LABS: Basophils % (A) 0 %; Eosinophils % (A) 0 %; HCT 41.5 % (34.0-46.0); HGB 13.5 gm/dL (11.4-16.0); Lymphocytes # (A) 1.5 k/uL (1.0-4.8); Lymphocytes % (A) 17 %; MCHC 32.5 g/dL (31.0-37.0); MCV 95.4 fL (80.0-100.0); Mean Platelet Volume 9.1; Monocytes # (A) 1.1 k/uL (0-1.0); Monocytes % (A) 12 %; Neutrophils # (A) 6.1 k/uL (1.3-7.7); Neutrophils % (A) 67 %; Platelet Count 158 k/uL (150-450); RBC 4.35 m/uL (3.80-5.40); RDW 12.8 % (11.5-15.5); WBC 9.1 k/uL (3.8-10.6)
--- NOTE | 2022-12-07 10:48 | XR ---
EXAMINATION TYPE: XR chest 2V DATE OF EXAM: 12/07/2022 10:38 AM COMPARISON: Chest radiographs from 11/19/2022 TECHNIQUE: XR chest 2V Frontal and lateral views of the chest. CLINICAL INDICATION:Female, 82 years old with history of productive cough; FINDINGS: Lungs/Pleura: There is no evidence of pleural effusion, focal consolidation, or pneumothorax. Pulmonary vascularity: Unremarkable. Heart/mediastinum: Cardiomediastinal silhouette is enlarged and stable. Two lead cardiac conduction d evice overlying the left hemithorax with lead tips projecting over the right ventricle and right atri um. Musculoskeletal: No acute osseous pathology. IMPRESSION: 1. No acute cardiopulmonary disease/process. 2. Cardiomegaly.
[2022-12-07 10:57] LABS: ALT 12 U/L (4-34); African American GFR (CKD) 77 (>60 ml/min/1.73 sqM); Albumin 3.2 g/dL (3.5-5.0); Anion Gap 7 mmol/L; Blood Urea Nitrogen 16 mg/dL (7-17); Calcium 8.4 mg/dL (8.4-10.2); Carbon Dioxide 26 mmol/L (22-30); Chloride 106 mmol/L (98-107); Glucose 85 mg/dL (74-99); Non-African American GFR(CKD) 67 (>60 ml/min/1.73 sqM); Sodium 139 mmol/L (137-145); Total Bilirubin 0.7 mg/dL (0.2-1.3); Total Protein 6.1 g/dL (6.3-8.2)
[2022-12-07 10:59] LABS: AST 35 U/L (14-36); Alkaline Phosphatase 81 U/L (38-126); Magnesium 1.6 mg/dL (1.6-2.3)
[2022-12-07 11:16] LABS: Phenytoin (Dilantin) <3.0 ug/mL
[2022-12-07] MEDS ORDERED: ASPIRIN 81 MG PO STA (12:15)
[2022-12-07] MEDS ORDERED: NITROGLYCERIN SL TABS 0.4 MG TAB SUBLINGUAL PRN (12:15)
[2022-12-07] MEDS ORDERED: DEXAMETHASONE SOD PHOSPHATE 10 MG/ML 1 ML VIAL IV STA (12:26)
--- NOTE | 2022-12-07 13:15 | P.HPIM ---
History of Present Illness H&P Date: 12/07/22 History of present illness; patient is a 82-year-old lady with past medical hist ory significant for atrial fibrillation ablation, hypertension, hypothyroidism who presented to the ER because of not feeling well for the last week. Patient stated that since Wednesday she has been having very low appetite and low energy levels. Patient has been having nausea but no vomiting. Denies abdominal pain. Denies any complaint of fever or chills at home. Patient has been complaining of generalized body aches. Denies any chest pain or shortness of breath. Because of these symptoms, patient came to the ER Initial lab work done in the ER showed WBC 9.1, hemoglobin 13.5, platelet count 158 sodium 100 and POTASSIUM 4.0, BUN/CREATININE 16, CREATININE 0.83 AND TROPONIN 0.085 Chest x-ray done in the ER showed no acute cardiopulmonary disease Patient admitted to medicine service REVIEW OF SYSTEMS: CONSTITUTIONAL: As mentioned in HPI HEENT: No recent visual problems or hearing problems. Denied any sore throat. CARDIOVASCULAR: No chest pain, orthopnea, PND, no palpitations, no syncope. PULMONARY: As mentioned in HPI GASTROINTESTINAL: No diarrhea, no nausea, no vomiting, no abdominal pain. NEUROLOGICAL: No headaches, no weakness, no numbness. HEMATOLOGICAL: Denies any bleeding or petechiae. GENITOURINARY: Denies any burning micturition, frequency, or urgency. MUSCULOSKELETAL/RHEUMATOLOGICAL: Denies any joint pain, swelling, or any muscle pain. ENDOCRINE: Denies any polyuria or polydipsia. The rest of the 14-point review of systems is negative. PHYSICAL EXAMINATION: GENERAL: The patient is alert and oriented x3, not in any acute distress. Well developed, well nourished. HEENT: Pupils are round and equally reacting to light. EOMI. No scleral icterus. No conjunctival pallor. Normocephalic, atraumatic. No pharyngeal erythema. No thyromegaly. CARDIOVASCULAR: S1 and S2 present. No murmurs, rubs, or gallops. PULMONARY: Chest is clear to auscultation, no wheezing or crackles. ABDOMEN: Soft, nontender, nondistended, normoactive bowel sounds. No palpable organomegaly. MUSCULOSKELETAL: No joint swelling or deformity. EXTREMITIES: No cyanosis, clubbing, or pedal edema. NEUROLOGICAL: Gross neurological examination did not reveal any focal deficits. SKIN: No rashes. Assessment and plan COVID-19 infection Elevated troponin Chronic atrial fibrillation Hypertension Hypothyroidism Monitor vital signs Monitor CBC Monitor CMP Continue telemetry monitoring Trend troponin Isolation precautions Start patient on Decadron Consult cardiology Consult ID Labs and medication were reviewed.. Continue same treatment. Continue with symptomatic treatment. Resume home medication. Monitor labs and vitals. DVT and GI prophylaxis. Further recommendations as per clinical course of the patient Dictation was produced using [employer] dictation software. please excuse any grammatical, word or spelling errors. Past Medical History Past Medical History: Atrial Flutter, Asthma, Heart Failure, GERD/Reflux, Hypertension, Pneumonia, Seizure Disorder, Thyroid Disorder Additional Past Medical History / Comment(s): pt sates 2 1/2 years ago she had cardiac arrest., fibromyalgia History of Any Multi-Drug Resistant Organisms: MRSA Date of last positivie culture/infection: 2007 MDRO Source:: left knee Past Surgical History: Section, Hysterectomy, Orthopedic Surgery, Pacemaker Additional Past Surgical History / Comment(s): both knees, rotator cuff left Past Anesthesia/Blood Transfusion Reactions: No Reported Reaction, Postoperative Nausea & Vomiting (PONV) Type of Cardiac Device: Permanent Pacemaker Device Placement Date:: 2014 Past Psychological History: Depression Smoking Status: Never smoker Past Alcohol Use History: None Reported Past Drug Use History: None Reported Medications and Allergies Home Medications Medication Instructions Recorded Confirmed Type Diltiazem Cd [Cardizem CD] 180 mg PO HS 03/30/15 10/18/22 History Levothyroxine Sodium [Synthroid] 75 mcg PO DAILY 03/30/15 10/18/22 History Phenytoin Sodium Extended 100 mg PO BID 03/30/15 10/18/22 History [Dilantin] Acetaminophen [Tylenol Arthritis] 650 mg PO BID 08/06/22 10/18/22 History Calcium Carbonate [Calcium] 600 mg PO HS 08/06/22 10/18/22 History Cetirizine HCl [Zyrtec] 10 mg PO DAILY 08/06/22 10/18/22 History Docusate [Colace] 100 mg PO HS PRN 08/06/22 10/18/22 History Gabapentin [Neurontin] 200 mg PO TID 08/06/22 10/18/22 History Metoprolol Succinate (ER) [Toprol 25 mg PO DAILY 08/06/22 10/18/22 History XL] Metoprolol Succinate (ER) [Toprol 50 mg PO HS 08/06/22 10/18/22 History XL] Multivit-Min/Iron/Folic/Lutein 1 tab PO HS 08/06/22 10/18/22 History [Centrum Silver Women Tablet] Solifenacin Succinate [Vesicare] 5 mg PO HS 08/06/22 10/18/22 History Warfarin [Coumadin] 2.5 mg PO SUTUTHSA@209908/06/22 10/18/22 History methocarbamoL [Robaxin-750] 750 mg PO BID PRN 08/06/22 10/18/22 History Budesonide-Formot 160-4.5 Mcg 2 puff INHALATION RT-BID #1 each 08/11/22 10/18/22 Rx [Symbicort 160-4.5 Mcg Inhaler] Warfarin [Coumadin] 5 mg PO MOWEFR@209910/18/22 10/18/22 History predniSONE 10 mg PO DAILY #20 tab 10/20/22 Rx Allergies Allergy/AdvReac Type Severity Reaction Status Date / Time cephalexin monohydrate Allergy Nausea & Verified 12/07/22 09:36 [From Keflex] Vomiting codeine Allergy Unknown Verified 12/07/22 09:36 Penicillins Allergy Rash/Hives Verified 12/07/22 09:36 & Swelling all over Physical Exam Vitals: Vital Signs Temp Pulse Resp BP Pulse Ox 12/07/22 12:38 98.2 F 70 18 126/61 99 12/07/22 09:36 96 12/07/22 09:30 98.9 F 76 20 142/62 90 L Intake and Output 12/06/22 12/07/22 12/07/22 22:59 06:59 14:59 Other: Weight 99.79 kg Results CBC & Chem 7: 12/07/22 10:24 12/07/22 10:24 Labs: Abnormal Lab Results - Last 24 Hours (Table) 12/07/22 12/07/22 12/07/22 Range/Units 10:24 10:24 10:24 Monocytes # 1.1 H (0-1.0) k/uL Troponin I 0.085 H* (0.000-0.034) ng/mL Total Protein 6.1 L (6.3-8.2) g/dL Albumin 3.2 L (3.5-5.0) g/dL SARS-CoV-2 (PCR) (Not Detectd) 12/07/22 Range/Units 10:24 Monocytes # (0-1.0) k/uL Troponin I (0.000-0.034) ng/mL Total Protein (6.3-8.2) g/dL Albumin (3.5-5.0) g/dL SARS-CoV-2 (PCR) Detected A (Not Detectd)
[2022-12-07] MEDS: ONDANSETRON 4 MG/2 ML VIAL IVP PRN (15:42)
[2022-12-07] MEDS: guaiFENesin SYRUP 100MG/5ML 200 MG/10 ML CUP PO PRN ×2 (16:51→22:35)
[2022-12-07 16:58] LABS: Glucose,Whole Blood 111 mg/dL (70-110)
[2022-12-07] MEDS ORDERED: IPRATROPIUM-ALBUTEROL 3 ML NEB INHALATION PRN (17:04)
[2022-12-07 18:31] LABS: INR 1.6 (<1.2); Prothrombin Time 16.3 sec (9.0-12.0)
[2022-12-07] MEDS: BENZOCAINE/MENTHOL LOZENG 1 EACH LOZENGE MUCOUS MEM PRN ×2 (18:38→22:36)
[2022-12-07] MEDS: BENZONATATE 100 MG CAP PO PRN (18:38)
[2022-12-07] MEDS: PHENYTOIN SODIUM EXTENDED 100 MG CAP PO SCH (19:52)
[2022-12-07] MEDS: METOPROLOL SUCCINATE (ER) 50 MG TAB.ER.24H PO SCH (19:53)
[2022-12-07] MEDS: MULTIVITAMINS, THERA 1 EACH TAB PO SCH (19:53)
[2022-12-07] MEDS: DILTIAZEM CD 180 MG CAP.ER.24H PO SCH (19:53)
[2022-12-07] MEDS: CALCIUM CARBONATE 500 MG CHEWABLE PO SCH (19:53)
[2022-12-07] MEDS ORDERED: WARFARIN 5 MG TAB PO SCH (20:00)
[2022-12-07 20:14] LABS: Glucose,Whole Blood 124 mg/dL (70-110)
[2022-12-07] MEDS: BUDESONIDE 0.25 MG/2 ML NEBU INHALATION SCH (21:12)
[2022-12-07] MEDS: ALBUTEROL HFA INHALER INHALATION PRN (21:12)
[2022-12-07] MEDS: ACETAMINOPHEN TAB 325 MG TAB PO PRN (22:34)
--- NOTE | 2022-12-07 23:29 | P.CONS ---
History of Present Illness - Reason for Consult Consult date: 12/07/22 - History of Present Illness Patient is a 82-year-old female with a past medical history significant for atrial fibrillation hypertension hypothyroidism presenting to the ER for evaluation not feeling well patient symptom has been going on since Wednesday in this patient with some URI symptoms of runny nose sore throat the patient also have a decreased oral intake has felt nauseated but no vomiting denies any abdominal pain he did have some diarrhea last week that has resolved and also complaining of generalized body aches patient did have mild shortness of breath and a cough which has been mild in intensity and dry in nature patient on presentation to the hospital was afebrile and no fever has been recorded subsequently patient did have O2 sats of 90% on room air on presentation to hospital currently on a 2 L nasal cannula oxygen did have a normal white count kidney function was normal liver enzymes normal troponins are elevated patient did tested positive for COVID-19 chest x-ray reported negative for acute infiltrate infectious disease was consulted for further management of underlying COVID-19 infection patient also have a wound to the right posterior leg attributed to the pressure denies significant pain drainage or redness around it Past Medical History Past Medical History: Atrial Flutter, Asthma, Heart Failure, GERD/Reflux, Hypertension, Pneumonia, Seizure Disorder, Thyroid Disorder Additional Past Medical History / Comment(s): pt sates 2 1/2 years ago she had cardiac arrest., fibromyalgia History of Any Multi-Drug Resistant Organisms: MRSA Year Discovered:: 2007 MDRO Source:: left knee Past Surgical History: Section, Hysterectomy, Orthopedic Surgery, Pacemaker Additional Past Surgical History / Comment(s): both knees, rotator cuff left Past Anesthesia/Blood Transfusion Reactions: No Reported Reaction, Postoperative Nausea & Vomiting (PONV) Type of Cardiac Device: Permanent Pacemaker Device Placement Date:: 2014 Past Psychological History: Depression Smoking Status: Never smoker Past Alcohol Use History: None Reported Past Drug Use History: None Reported - Past Family History Mother Family Medical History: Cancer Additional Family Medical History / Comment(s): Breast and lung cancer Father Family Medical History: Cancer Additional Family Medical History / Comment(s): Prostate cancer Brother(s) Family Medical History: Cancer Additional Family Medical History / Comment(s): Lung cancer Sister(s) Additional Family Medical History / Comment(s): Arthritis Medications and Allergies Home Medications Medication Instructions Recorded Confirmed Type Diltiazem Cd [Cardizem CD] 180 mg PO HS 03/30/15 12/07/22 History Levothyroxine Sodium [Synthroid] 75 mcg PO DAILY 03/30/15 12/07/22 History Phenytoin Sodium Extended 100 mg PO BID 03/30/15 12/07/22 History [Dilantin] Acetaminophen [Tylenol Arthritis] 650 mg PO BID 08/06/22 12/07/22 History Calcium Carbonate [Calcium] 600 mg PO HS 08/06/22 12/07/22 History Cetirizine HCl [Zyrtec] 10 mg PO DAILY 08/06/22 12/07/22 History Metoprolol Succinate (ER) [Toprol 25 mg PO DAILY 08/06/22 12/07/22 History XL] Metoprolol Succinate (ER) [Toprol 50 mg PO HS 08/06/22 12/07/22 History XL] Multivit-Min/Iron/Folic/Lutein 1 tab PO HS 08/06/22 12/07/22 History [Centrum Silver Women Tablet] Warfarin [Coumadin] 2.5 mg PO SUTUTHSA@209908/06/22 12/07/22 History Budesonide-Formot 160-4.5 Mcg 2 puff INHALATION RT-BID #1 each 08/11/22 12/07/22 Rx [Symbicort 160-4.5 Mcg Inhaler] Warfarin [Coumadin] 5 mg PO MOWEFR@209910/18/22 12/07/22 History Furosemide [Lasix] 40 mg PO DAILY 12/07/22 12/07/22 History Allergies Allergy/AdvReac Type Severity Reaction Status Date / Time cephalexin monohydrate Allergy Nausea & Verified 12/07/22 15:49 [From Keflex] Vomiting codeine Allergy Unknown Verified 12/07/22 15:49 Penicillins Allergy Rash/Hives Verified 12/07/22 15:49 & Swelling all over Physical Exam Vitals: Vital Signs Temp Pulse Resp BP Pulse Ox 12/07/22 12:38 98.2 F 70 18 126/61 99 12/07/22 09:36 96 12/07/22 09:30 98.9 F 76 20 142/62 90 L Intake and Output 09/03/23 09/04/23 09/04/23 22:59 06:59 14:59 Other: Weight 99.79 kg Results CBC & Chem 7: 12/08/22 09:16 12/08/22 09:16 Labs: Abnormal Lab Results - Last 24 Hours (Table) 12/07/22 12/07/22 12/07/22 Range/Units 10:24 10:24 10:24 Monocytes # 1.1 H (0-1.0) k/uL Troponin I 0.085 H* (0.000-0.034) ng/mL Total Protein 6.1 L (6.3-8.2) g/dL Albumin 3.2 L (3.5-5.0) g/dL SARS-CoV-2 (PCR) (Not Detectd) 12/07/22 Range/Units 10:24 Monocytes # (0-1.0) k/uL Troponin I (0.000-0.034) ng/mL Total Protein (6.3-8.2) g/dL Albumin (3.5-5.0) g/dL SARS-CoV-2 (PCR) Detected A (Not Detectd) Assessment and Plan Plan: 1patient was in the hospital with increasing weakness not feeling well and shortness of breath which is likely multifactorial in this patient tested positive for COVID-19 however also have elevated cardiac enzymes during patient did have mild hypoxia requiring supplemental oxygen chest x-ray was negative for acute infiltrate more likely representing a mild COVID-19 illness and apparently symptom has been going on for about a week no evidence of any secondary bacterial pneumonia. 2patient to continue with the dexamethasone she has been continued her Coumadin as INR was subtherapeutic, will add zinc and ascorbic acid. 3patient will not qualify for remdesivir and no need for systemic antibiotic t herapy. We will follow on clinical condition and cultures to further adjust medication if needed Thank you for this consultation we will follow the patient along with you Dictation was produced using [employer] dictation software. please excuse any grammatical, word or spelling errors. Time with Patient: Greater than 30
[2022-12-08] MEDS: BENZOCAINE/MENTHOL LOZENG 1 EACH LOZENGE MUCOUS MEM PRN ×3 (03:18→22:58)
[2022-12-08] MEDS: BENZONATATE 100 MG CAP PO PRN (03:18)
[2022-12-08 05:48] LABS: Glucose,Whole Blood 92 mg/dL (70-110)
[2022-12-08] MEDS: BUDESONIDE 0.25 MG/2 ML NEBU INHALATION SCH ×2 (08:45→21:02)
[2022-12-08] MEDS: ALBUTEROL HFA INHALER INHALATION PRN ×3 (08:46→15:42)
[2022-12-08] MEDS ORDERED: ASPIRIN 325 MG TAB PO SCH (09:00)
[2022-12-08] MEDS: ZINC SULFATE 220 MG CAP PO SCH (09:16)
[2022-12-08] MEDS: DEXAMETHASONE SOD PHOSPHATE 10 MG/ML 1 ML VIAL IV SCH (09:16)
[2022-12-08] MEDS: LEVOTHYROXINE 75 MCG TAB PO SCH (09:16)
[2022-12-08] MEDS: FUROSEMIDE 40 MG TAB PO SCH (09:16)
[2022-12-08] MEDS: ASCORBIC ACID 500 MG TAB PO SCH (09:16)
[2022-12-08] MEDS: METOPROLOL SUCCINATE (ER) 50 MG TAB.ER.24H PO SCH ×2 (09:16→20:37)
[2022-12-08] MEDS: PHENYTOIN SODIUM EXTENDED 100 MG CAP PO SCH ×2 (09:16→20:37)
[2022-12-08] MEDS: ONDANSETRON 4 MG/2 ML VIAL IVP PRN (09:21)
[2022-12-08] MEDS: guaiFENesin SYRUP 100MG/5ML 200 MG/10 ML CUP PO PRN ×2 (09:21→23:01)
[2022-12-08 09:42] LABS: INR 1.9 (<1.2); Prothrombin Time 18.8 sec (9.0-12.0)
[2022-12-08 09:47] LABS: HCT 48.5 % (34.0-46.0); MCH 31.3 pg (25.0-35.0); MCHC 33.1 g/dL (31.0-37.0); MCV 94.5 fL (80.0-100.0); Platelet Count 152 k/uL (150-450); RBC 5.13 m/uL (3.80-5.40); WBC 8.2 k/uL (3.8-10.6)
[2022-12-08 09:57] LABS: ALT 13 U/L (4-34); African American GFR (CKD) 75 (>60 ml/min/1.73 sqM); Albumin 3.6 g/dL (3.5-5.0); Anion Gap 9 mmol/L; Blood Urea Nitrogen 21 mg/dL (7-17); Calcium 9.2 mg/dL (8.4-10.2); Carbon Dioxide 24 mmol/L (22-30); Chloride 105 mmol/L (98-107); Glucose 78 mg/dL (74-99); Non-African American GFR(CKD) 65 (>60 ml/min/1.73 sqM); Sodium 138 mmol/L (137-145); Total Bilirubin 0.7 mg/dL (0.2-1.3); Total Protein 6.7 g/dL (6.3-8.2)
[2022-12-08 10:01] LABS: AST 45 U/L (14-36); Alkaline Phosphatase 85 U/L (38-126); Potassium 4.4 mmol/L (3.5-5.1)
--- NOTE | 2022-12-08 11:29 | P.CRDCN ---
History of Present Illness History of present illness: CHIEF COMPLAINT: Elevated troponins HISTORY OF PRESENT ILLNESS: This is a 82-year-old female with a past medical history significant for paroxys mal atrial fibrillation, hypertension, carotid bruit, sick sinus syndrome with previous pacemaker implantation, and seizure disorder. Patient follows in the office with Dr. Harvey. We have been asked to see the patient in consultation for elevated troponins. Patient examined at the bedside. Patient states she has been feeling unwell for the past week or so. She states that she had a sore throat. She also reports feeling nauseous and having dry heaves. She presented to the hospital for further evaluation. The patient was found to be positive for Covid. She denies having any chest pain or pressure. She denies having any shortness of breath. INR was found to be in subtherapeutic at 1.6. The patient states she has not taken her medications at home for the past 3 days secondary to feeling unwell. * EKG reveals ventricular paced rhythm * Chest xray negative for acute process * Current home cardiac medications include Coumadin 5 mg Wednesday and 2.5 mg Wednesday, metoprolol succinate 25 mg the morning and 50 mg a day, Lasix 40 mg daily, Cardizem CD 180mg at HS * Most recent echocardiogram obtained in September 2019 revealing ejection fraction 55%, trace AR, mild to moderate MR, mild to moderate TR * Patient underwent Hilda scan stress test in September 2019 which was negative for ischemia REVIEW OF SYSTEMS: Thorough review of systems not completed secondary to limited evaluation/examination due to Covid19 PHYSICAL EXAM: Thorough physical exam not completed secondary to limited evaluation/examination due to Covid19 Lungs diminished to auscultation. No crackles noted. Minimal lower extremity edema noted. No murmur auscultated. ASSESSMENT: Acute Covid 19 Abnormal troponins, flat, secondary to above, no evidence of acute coronary syndrome Decreased oral intake 3 days Subtherapeutic INR, secondary to patient not taking her medications Paroxysmal atrial fibrillation Sick sinus syndrome with history of permanent pacemaker implantation Hypertension PLAN: An acute coronary and has been ruled out Resume home cardiac medications Continue Coumadin. Monitor INR. No need to repeat echocardiogram at this time. This may be performed on an outpatient basis once she has recovered from Covid Further recommendations pending patient's course Nurse practitioner note has been reviewed by physician. Signing provider agrees with the documented findings, assessment, and plan of care. Past Medical History Past Medical History: Atrial Flutter, Asthma, Heart Failure, GERD/Reflux, Hypertension, Pneumonia, Seizure Disorder, Thyroid Disorder Additional Past Medical History / Comment(s): pt sates 2 1/2 years ago she had cardiac arrest., fibromyalgia History of Any Multi-Drug Resistant Organisms: MRSA Date of last positivie culture/infection: 2007 MDRO Source:: left knee Past Surgical History: Section, Hysterectomy, Orthopedic Surgery, Pacemaker Additional Past Surgical History / Comment(s): both knees, rotator cuff left Past Anesthesia/Blood Transfusion Reactions: No Reported Reaction, Postoperative Nausea & Vomiting (PONV) Type of Cardiac Device: Permanent Pacemaker Device Placement Date:: 2014 Past Psychological History: Depression Smoking Status: Never smoker Past Alcohol Use History: None Reported Past Drug Use History: None Reported - Past Family History Mother Family Medical History: Cancer Additional Family Medical History / Comment(s): Breast and lung cancer Father Family Medical History: Cancer Additional Family Medical History / Comment(s): Prostate cancer Brother(s) Family Medical History: Cancer Additional Family Medical History / Comment(s): Lung cancer Sister(s) Additional Family Medical History / Comment(s): Arthritis Medications and Allergies Home Medications Medication Instructions Recorded Confirmed Type Diltiazem Cd [Cardizem CD] 180 mg PO HS 03/30/15 12/07/22 History Levothyroxine Sodium [Synthroid] 75 mcg PO DAILY 03/30/15 12/07/22 History Phenytoin Sodium Extended 100 mg PO BID 03/30/15 12/07/22 History [Dilantin] Acetaminophen [Tylenol Arthritis] 650 mg PO BID 08/06/22 12/07/22 History Calcium Carbonate [Calcium] 600 mg PO HS 08/06/22 12/07/22 History Cetirizine HCl [Zyrtec] 10 mg PO DAILY 08/06/22 12/07/22 History Metoprolol Succinate (ER) [Toprol 25 mg PO DAILY 08/06/22 12/07/22 History XL] Metoprolol Succinate (ER) [Toprol 50 mg PO HS 08/06/22 12/07/22 History XL] Multivit-Min/Iron/Folic/Lutein 1 tab PO HS 08/06/22 12/07/22 History [Centrum Silver Women Tablet] Warfarin [Coumadin] 2.5 mg PO SUTUTHSA@209908/06/22 12/07/22 History Budesonide-Formot 160-4.5 Mcg 2 puff INHALATION RT-BID #1 each 08/11/22 12/07/22 Rx [Symbicort 160-4.5 Mcg Inhaler] Warfarin [Coumadin] 5 mg PO MOWEFR@209910/18/22 12/07/22 History Furosemide [Lasix] 40 mg PO DAILY 12/07/22 12/07/22 History Allergies Allergy/AdvReac Type Severity Reaction Status Date / Time cephalexin monohydrate Allergy Nausea & Verified 12/07/22 15:49 [From Keflex] Vomiting codeine Allergy Unknown Verified 12/07/22 15:49 Penicillins Allergy Rash/Hives Verified 12/07/22 15:49 & Swelling all over Physical Exam Vitals: Vital Signs Temp Pulse Pulse Resp BP BP Pulse Ox 12/08/22 11:10 98.6 F 60 16 141/68 96 12/08/22 08:00 97.5 F L 60 16 125/63 96 12/08/22 03:40 97.9 F 59 L 150/79 97 12/07/22 23:15 98.6 F 96 158/79 96 12/07/22 21:14 94 L 12/07/22 20:00 98.5 F 55 L 138/75 94 L 12/07/22 15:37 98.7 F 63 20 147/71 94 L 12/07/22 14:47 56 L 12/07/22 14:14 98.6 F 56 L 20 150/85 93 L 12/07/22 12:38 98.2 F 70 18 126/61 99 Intake and Output 12/07/22 12/08/22 12/08/22 22:59 06:59 14:59 Intake Total 100 Balance 100 Intake: Oral 100 Other: Voiding Method Toilet Toilet Toilet # Voids 1 1 2 Results 12/08/22 09:16 12/08/22 09:16 Cardiac Enzymes 12/07/22 12/07/22 12/08/22 Range/Units 16:15 18:08 09:16 AST 45 H (14-36) U/L Troponin I 0.060 H* 0.064 H* (0.000-0.034) ng/mL Coagulation 12/07/22 12/08/22 Range/Units 18:08 09:16 PT 16.3 H 18.8 H (9.0-12.0) sec Lipids 12/08/22 Range/Units 09:16 Triglycerides Cancelled Cholesterol Cancelled HDL Cholesterol Cancelled Cholesterol/HDL Ratio Cancelled CBC 12/08/22 Range/Units 09:16 WBC 8.2 (3.8-10.6) k/uL RBC 5.13 (3.80-5.40) m/uL Hgb 16.0 (11.4-16.0) gm/dL Hct 48.5 H (34.0-46.0) % Plt Count 152 (150-450) k/uL Comprehensive Metabolic Panel 12/08/22 Range/Units 09:16 Sodium 138 (137-145) mmol/L Potassium 4.4 (3.5-5.1) mmol/L Chloride 105 (98-107) mmol/L Carbon Dioxide 24 (22-30) mmol/L BUN 21 H (7-17) mg/dL Creatinine 0.85 (0.52-1.04) mg/dL Glucose 78 (74-99) mg/dL Calcium 9.2 (8.4-10.2) mg/dL AST 45 H (14-36) U/L ALT 13 (4-34) U/L Alkaline Phosphatase 85 (38-126) U/L Total Protein 6.7 (6.3-8.2) g/dL Albumin 3.6 (3.5-5.0) g/dL Current Medications Generic Name Dose Route Start Last Admin Trade Name Freq PRN Reason Stop Dose Admin Acetaminophen 650 mg 12/07/22 13:10 12/07/22 22:34 Acetaminophen Tab 325 Mg Tab PO 650 mg Q4HR PRN Administration Fever>101 Albuterol Sulfate 2 puff 12/07/22 13:10 12/08/22 08:46 Albuterol Hfa Inhaler INHALATION 2 puff RT-Q6H PRN Administration Shortness Of Breath Or Wheezing Albuterol/Ipratropium 3 ml 12/07/22 17:04 Ipratropium-Albuterol 3 Ml Neb INHALATION RT-QID PRN Shortness Of Breath Or Wheezing Ascorbic Acid 1,000 mg 12/08/22 09:00 12/08/22 09:16 Ascorbic Acid 500 Mg Tab PO 1,000 mg DAILY VISH Administration Benzocaine/Menthol 1 each 12/07/22 18:20 12/08/22 11:09 Benzocaine/Menthol Lozeng 1 Each Lozenge MUCOUS MEM 1 each Q4HR PRN Administration Cough Benzonatate 100 mg 12/07/22 18:20 12/08/22 03:18 Benzonatate 100 Mg Cap PO 100 mg Q6HR PRN Administration Cough Budesonide 0.25 mg 12/07/22 20:00 12/08/22 08:45 Budesonide 0.25 Mg/2 Ml Nebu INHALATION Not Given RT-BID VISH Calcium Carbonate/Glycine 500 mg 12/07/22 21:00 12/07/22 19:53 Calcium Carbonate 500 Mg Chewable PO 500 mg HS VISH Administration Dexamethasone Sodium Phosphate 6 mg 12/08/22 09:00 12/08/22 09:16 Dexamethasone Sod Phosphate 10 Mg/Ml 1 Ml Vial IV 12/17/22 09:01 6 mg DAILY VISH Administration Diltiazem HCl 180 mg 12/07/22 21:00 12/07/22 19:53 Diltiazem Cd 180 Mg Cap.Er.24h PO 180 mg HS VISH Administration Furosemide 40 mg 12/08/22 09:00 12/08/22 09:16 Furosemide 40 Mg Tab PO 40 mg DAILY VISH Administration Guaifenesin 200 mg 12/07/22 16:40 12/08/22 09:21 Guaifenesin Syrup 100mg/5ml 200 Mg/10 Ml Cup PO 200 mg TID PRN Administration Cough Levothyroxine Sodium 75 mcg 12/08/22 09:00 12/08/22 09:16 Levothyroxine 75 Mcg Tab PO 75 mcg DAILY VISH Administration Metoprolol Succinate 50 mg 12/07/22 21:00 12/07/22 19:53 Metoprolol Succinate (Er) 50 Mg Tab.Er.24h PO 50 mg HS VISH Administration Metoprolol Succinate 25 mg 12/08/22 09:00 12/08/22 09:16 Metoprolol Succinate (Er) 50 Mg Tab.Er.24h PO 25 mg DAILY VISH Administration Miscellaneous Information 1 each 12/08/22 09:26 Warfarin Per Pharmacy MISCELLANE DIRECTED PRN Per Protocol Protocol Multivitamins 1 each 12/07/22 21:00 12/07/22 19:53 Multivitamins, Thera 1 Each Tab PO 1 each HS VISH Administration Nitroglycerin 0.4 mg 12/07/22 12:15 Nitroglycerin Sl Tabs 0.4 Mg Tab SUBLINGUAL Q5M PRN Chest Pain Ondansetron HCl 4 mg 12/07/22 14:47 12/08/22 09:21 Ondansetron 4 Mg/2 Ml Vial IVP 4 mg Q6HR PRN Administration Nausea And Vomiting Phenytoin Sodium 100 mg 12/07/22 21:00 12/08/22 09:16 Phenytoin Sodium Extended 100 Mg Cap PO 100 mg BID VISH Administration Warfarin Sodium 2.5 mg 12/08/22 21:00 Warfarin 2.5 Mg Tab PO 12/08/22 21:01 ONCE ONE Zinc Sulfate 220 mg 12/08/22 09:00 12/08/22 09:16 Zinc Sulfate 220 Mg Cap PO 220 mg DAILY VISH Administration Intake and Output 12/07/22 12/08/22 12/08/22 22:59 06:59 14:59 Intake Total 100 Balance 100 Intake: Oral 100 Other: Voiding Method Toilet Toilet Toilet # Voids 1 1 2 12/08/22 09:16 12/08/22 09:16
[2022-12-08 11:51] LABS: Glucose,Whole Blood 96 mg/dL (70-110)
--- NOTE | 2022-12-08 12:05 | P.PN ---
Subjective Progress Note Date: 12/08/22 This is a pleasant 82-year-old female admitted with acute COVID-19 infection, abnormal troponins-acute coronary syndrome ruled out as per cardiology, proximal atrial fibrillation with a subtherapeutic INR, sick sinus syndrome with permanent pacemaker implantation, hypertension and multiple other medical is sues. Evaluated by infectious disease, maintained on covid cocktail: Decadron, ascorbic acid,zinc. Anticoagulated on Coumadin, INR 1.9. Denies chest pain, palpitations or shortness of breath. Maintaining O2 sats in the 90s on 2 L nasal cannula. Denies lightheadedness, dizziness or focal deficits. Diarrhea has resolved. Afebrile, normal WBC. Renal function stable. Blood sugars controlled Objective - Vital Signs Vital signs: Vital Signs Temp 97.9 F 12/08/22 03:40 Pulse 59 L 12/08/22 03:40 Resp 20 12/07/22 15:37 BP 150/79 12/08/22 03:40 Pulse Ox 97 12/08/22 03:40 FiO2 Intake & Output 12/07/22 12/08/22 12/08/22 18:59 06:59 18:59 Weight 99.79 kg Other: Voiding Method Toilet Toilet # Voids 1 - Exam - Exam PHYSICAL EXAM: VITAL SIGNS: [As above] GENERAL: Alert and oriented 3,Sitting up in a chair, no acute distress HEENT: Atraumatic, normocephalic Conjunctivae normal. eyes normal. NECK: Supple, No JVD. CARDIOVASCULAR: S1, S2 regular.systolic murmur RESPIRATION: Unlabored, Breath sounds diminished in the bases, No rhonchi or crackles. ABDOMEN: Soft, nondistended, nontender . No guarding. no masses palpable. Bowel sounds heard. LEGS: No edema. no swelling NERVOUS SYSTEM: Cranial N 2-12 grossly normal. No focal deficits. Strength and sensation grossly intact. Skin: Warm and dry, no rash - Labs CBC & Chem 7: 12/08/22 09:16 12/08/22 09:16 Labs: Abnormal Lab Results - Last 24 Hours (Table) 12/07/22 12/07/22 12/07/22 Range/Units 10:24 10:24 10:24 Hct (34.0-46.0) % Monocytes # 1.1 H (0-1.0) k/uL PT (9.0-12.0) sec INR (<1.2) BUN (7-17) mg/dL POC Glucose (mg/dL) (70-110) mg/dL AST (14-36) U/L Troponin I 0.085 H* (0.000-0.034) ng/mL Total Protein 6.1 L (6.3-8.2) g/dL Albumin 3.2 L (3.5-5.0) g/dL SARS-CoV-2 (PCR) (Not Detectd) 12/07/22 12/07/22 12/07/22 Range/Units 10:24 16:15 16:56 Hct (34.0-46.0) % Monocytes # (0-1.0) k/uL PT (9.0-12.0) sec INR (<1.2) BUN (7-17) mg/dL POC Glucose (mg/dL) 111 H (70-110) mg/dL AST (14-36) U/L Troponin I 0.060 H* (0.000-0.034) ng/mL Total Protein (6.3-8.2) g/dL Albumin (3.5-5.0) g/dL SARS-CoV-2 (PCR) Detected A (Not Detectd) 12/07/22 12/07/22 12/07/22 Range/Units 18:08 18:08 20:10 Hct (34.0-46.0) % Monocytes # (0-1.0) k/uL PT 16.3 H (9.0-12.0) sec INR 1.6 H (<1.2) BUN (7-17) mg/dL POC Glucose (mg/dL) 124 H (70-110) mg/dL AST (14-36) U/L Troponin I 0.064 H* (0.000-0.034) ng/mL Total Protein (6.3-8.2) g/dL Albumin (3.5-5.0) g/dL SARS-CoV-2 (PCR) (Not Detectd) 12/08/22 12/08/22 12/08/22 Range/Units 09:16 09:16 09:16 Hct 48.5 H (34.0-46.0) % Monocytes # (0-1.0) k/uL PT 18.8 H (9.0-12.0) sec INR 1.9 H (<1.2) BUN 21 H (7-17) mg/dL POC Glucose (mg/dL) (70-110) mg/dL AST 45 H (14-36) U/L Troponin I (0.000-0.034) ng/mL Total Protein (6.3-8.2) g/dL Albumin (3.5-5.0) g/dL SARS-CoV-2 (PCR) (Not Detectd) Assessment and Plan Assessment: Acute Covid-19 infection Acute hypoxic respiratory failure secondary to the above Elevated troponin secondary to the above, acute coronary syndrome ruled out as per cardiology Pulmonary hypertension Chronic atrial fib/flutter, anticoagulated on Coumadin. Sick sinus syndrome, history of Permanent pacemaker implantation Gastroesophageal reflux disease History of seizure disorder Hypothyroidism Fibromyalgia Depression Morbid obesity, BMI 46 Plan: Continue on current medication regime ,monitoring and symptomatic treatment. Maintain Covid cocktail. Continue to wean off of O2 as tolerated. Discharge planning in progress for tomorrow, pending clearance per ID. The impression and plan of care has been dictated as directed. : I performed a history and examination of this patient, discussed the same with the dictator. I agree with the dictator's note ,documented as a scribe. Any additional findings or plans will be noted.
[2022-12-08 15:14] VITALS: BMI 45.9
[2022-12-08 16:15] LABS: Chol/HDL Ratio 2.97 Ratio; LDL Cholesterol,Calculated 93.3 mg/dL (0.0-131.0); VLDL Calculation 14.14 mg/dL (5.00-40.00)
[2022-12-08 16:23] LABS: Glucose,Whole Blood 178 mg/dL (70-110)
[2022-12-08] MEDS: INSULIN ASPART (NovoLOG) 100 UNIT/ML VIAL SQ SCH ×2 (17:13→20:37)
[2022-12-08] MEDS ORDERED: MELATONIN 3 MG TABLET PO PRN (19:41)
[2022-12-08 20:25] LABS: Glucose,Whole Blood 179 mg/dL (70-110)
[2022-12-08] MEDS: DILTIAZEM CD 180 MG CAP.ER.24H PO SCH (20:37)
[2022-12-08] MEDS: MULTIVITAMINS, THERA 1 EACH TAB PO SCH (20:37)
[2022-12-08] MEDS: CALCIUM CARBONATE 500 MG CHEWABLE PO SCH (20:37)
[2022-12-08] MEDS ORDERED: WARFARIN 2.5 MG TAB PO ONE (21:00)
[2022-12-09] MEDS: ACETAMINOPHEN TAB 325 MG TAB PO PRN ×2 (02:26→09:50)
[2022-12-09 06:05] LABS: Glucose,Whole Blood 95 mg/dL (70-110)
[2022-12-09] MEDS: INSULIN ASPART (NovoLOG) 100 UNIT/ML VIAL SQ SCH ×2 (06:05→11:45)
[2022-12-09] MEDS: BUDESONIDE 0.25 MG/2 ML NEBU INHALATION SCH (08:17)
--- NOTE | 2022-12-09 08:30 | P.PN ---
Subjective Progress Note Date: 12/08/22 Principal diagnosis: Covid 19 Patient is a 82-year-old female with a past medical history significant for atrial fibrillation hypertension hypothyroidism presenting to [facility] ER for evaluation not feeling well, patient symptom has been going on for a few days before presentation to hospital also have some URI symptoms decreased oral intake and some shortness of breath patient has been diagnosed with COVID- 19. On today's evaluation that is 12/08/2022 patient denies having any fever or any chills patient is breathing slightly comfortably cough continues in intensity no nausea vomiting abdominal pain or diarrhea. Patient did have a white count of 8.2 creatinine 0.85. Objective - Vital Signs Vital signs: Vital Signs Temp 98.6 F 12/08/22 11:10 Pulse 60 12/08/22 11:10 Resp 16 12/08/22 11:10 BP 141/68 12/08/22 11:10 Pulse Ox 94 L 12/08/22 12:53 FiO2 Intake & Output 12/07/22 12/08/22 12/08/22 18:59 06:59 18:59 Intake Total 200 Balance 200 Weight 99.79 kg Intake: Oral 200 Other: Voiding Method Toilet Toilet Toilet # Voids 1 2 - Exam GENERAL DESCRIPTION: Elderly female lying in bed in no distress RESPIRATORY SYSTEM: Unlabored breathing , decreased breath sounds at bases HEART: S1 S2 regular rate and rhythm ,no loud murmurs ABDOMEN: Soft , no tenderness EXTREMITIES: No edema feet - Labs CBC & Chem 7: 12/08/22 09:16 12/08/22 09:16 Labs: Abnormal Lab Results - Last 24 Hours (Table) 12/07/22 12/07/22 12/07/22 Range/Units 16:15 16:56 18:08 Hct (34.0-46.0) % PT (9.0-12.0) sec INR (<1.2) BUN (7-17) mg/dL POC Glucose (mg/dL) 111 H (70-110) mg/dL AST (14-36) U/L Troponin I 0.060 H* 0.064 H* (0.000-0.034) ng/mL 12/07/22 12/07/22 12/08/22 Range/Units 18:08 20:10 09:16 Hct (34.0-46.0) % PT 16.3 H (9.0-12.0) sec INR 1.6 H (<1.2) BUN 21 H (7-17) mg/dL POC Glucose (mg/dL) 124 H (70-110) mg/dL AST 45 H (14-36) U/L Troponin I (0.000-0.034) ng/mL 12/08/22 12/08/22 Range/Units 09:16 09:16 Hct 48.5 H (34.0-46.0) % PT 18.8 H (9.0-12.0) sec INR 1.9 H (<1.2) BUN (7-17) mg/dL POC Glucose (mg/dL) (70-110) mg/dL AST (14-36) U/L Troponin I (0.000-0.034) ng/mL Assessment and Plan (1) COVID-19 Current Visit: Yes Status: Acute Code(s): U07.1 - COVID-19 SNOMED Code(s): 044468788 Plan: 1patient was in the hospital with increasing weakness not feeling well and shortness of breath which is likely multifactorial in this patient tested positive for COVID-19 however also have elevated cardiac enzymes during patient did have mild hypoxia requiring supplemental oxygen chest x-ray was negative for acute infiltrate more likely representing a mild COVID-19 illness and apparently symptom has been going on for about a week no evidence of any secondary bacterial pneumonia. 2Patient seem to have shown some clinical improvement and will continue with the dexamethasone, did not zinc and ascorbic acid and will monitor closely off no need for antibiotic therapy Dictation was produced using [employer] dictation software. please excuse any grammatical, word or spelling errors.
[2022-12-09 08:58] LABS: INR 1.9 (<1.2); Prothrombin Time 18.5 sec (9.0-12.0)
[2022-12-09] MEDS: ZINC SULFATE 220 MG CAP PO SCH (09:46)
[2022-12-09] MEDS: FUROSEMIDE 40 MG TAB PO SCH (09:46)
[2022-12-09] MEDS: PHENYTOIN SODIUM EXTENDED 100 MG CAP PO SCH (09:46)
[2022-12-09] MEDS: ASCORBIC ACID 500 MG TAB PO SCH (09:46)
[2022-12-09] MEDS: DEXAMETHASONE SOD PHOSPHATE 10 MG/ML 1 ML VIAL IV SCH (09:47)
[2022-12-09] MEDS: LEVOTHYROXINE 75 MCG TAB PO SCH (09:47)
[2022-12-09] MEDS: METOPROLOL SUCCINATE (ER) 50 MG TAB.ER.24H PO SCH (09:51)
[2022-12-09] MEDS ORDERED: CHOLECALCIFEROL 25 MCG (1000 IU) TABLET PO SCH (10:45)
[2022-12-09 11:53] LABS: Glucose,Whole Blood 130 mg/dL (70-110)
--- NOTE | 2022-12-09 11:57 | P.DS ---
Providers Date of admission: 12/08/22 09:34 Expected date of discharge: 12/09/22 Attending physician: Cole Hensley Consults: 12/07/22 12:15 Consult Physician Urgent Consulting Provider: Ronak Harvey Consult Reason/Comments: elevated troponin Do you want consulting provider notified?: Yes 12/07/22 13:10 Consult Physician Stat Consulting Provider: Munira Ruiz Consult Reason/Comments: COVID-19 infection Do you want consulting provider notified?: Yes Primary care physician: Cole Hensley Hospital Course: Final Diagnoses: Acute Covid-19 infection Acute hypoxic respiratory failure secondary to the above, resolved. Elevated troponin secondary to the above, acute coronary syndrome ruled out as per cardiology Pulmonary hypertension Chronic atrial fib/flutter, anticoagulated on Coumadin. Sick sinus syndrome, history of Permanent pacemaker implantation Gastroesophageal reflux disease History of seizure disorder Hypothyroidism Fibromyalgia Depression Morbid obesity, BMI 46 Hospital course:This is a pleasant 82-year-old female admitted with acute COVID- 19 infection, abnormal troponins-acute coronary syndrome ruled out as per cardiology, proximal atrial fibrillation with a subtherapeutic INR, sick sinus syndrome with permanent pacemaker implantation, hypertension and multiple other medical issues. Evaluated by infectious disease, maintained on covid cocktail: Decadron, ascorbic acid,zinc. Anticoagulated on Coumadin, INR 1.9. Denies chest pain, palpitations or shortness of breath. Maintaining O2 sats in the 90s on 2 L nasal cannula. Denies lightheadedness, dizziness or focal deficits. Diarrhea has resolved. Afebrile, normal WBC. Renal function stable. Blood sugars controlled Maintained on Covid cocktail. Weaned off of oxygen, maintaining O2 sats of 96% on room air. Significant clinical improvement. Patient will be discharged home today in stable condition with guarded prognosis pending final DC recommendations and clearance per ID. The impression and plan of care has been dictated as directed. : I performed a history and examination of this patient, discussed the same with the dictator. I agree with the dictator's note ,documented as a scribe. Any additional findings or plans will be noted. Patient Condition at Discharge: Stable Plan - Discharge Summary Discharge Rx Participant: No New Discharge Prescriptions: New dexAMETHasone ORAL [Hexadrol] 6 mg PO DAILY 8 Days #24 tablet Pantoprazole Sodium [Protonix] 40 mg PO DAILY #30 tab Benzocaine/Menthol Lozeng [Cepacol lozenge] 1 each MUCOUS MEM Q4HR PRN lozenge PRN Reason: Cough Zinc Sulfate [Orazinc] 220 mg PO DAILY #30 cap Albuterol Inhaler [Ventolin Hfa Inhaler] 2 puff INHALATION RT-Q6H PRN #1 each PRN Reason: Shortness Of Breath Or Wheezing Ascorbic Acid [Vitamin C] 1,000 mg PO DAILY tab guaiFENesin SYRUP 100MG/5ML [Robitussin] 200 mg PO TID PRN ml PRN Reason: Cough Cholecalciferol [Vitamin D3 (25 Mcg = 1000 Iu)] 50 mcg PO DAILY tab Continue Levothyroxine Sodium [Synthroid] 75 mcg PO DAILY Diltiazem Cd [Cardizem CD] 180 mg PO HS Phenytoin Sodium Extended [Dilantin] 100 mg PO BID Multivit-Min/Iron/Folic/Lutein [Centrum Silver Women Tablet] 1 tab PO HS Calcium Carbonate [Calcium] 600 mg PO HS Metoprolol Succinate (ER) [Toprol XL] 25 mg PO DAILY Furosemide [Lasix] 40 mg PO DAILY Warfarin [Coumadin] 2.5 mg PO SUTUTHSA@2100 Acetaminophen [Tylenol Arthritis] 650 mg PO BID Cetirizine HCl [Zyrtec] 10 mg PO DAILY Metoprolol Succinate (ER) [Toprol XL] 50 mg PO HS Budesonide-Formot 160-4.5 Mcg [Symbicort 160-4.5 Mcg Inhaler] 2 puff INHALATION RT-BID #1 each Warfarin [Coumadin] 5 mg PO MOWEFR@2100 Discharge Medication List Diltiazem Cd [Cardizem CD] 180 mg PO HS 03/30/15 [History] Levothyroxine Sodium [Synthroid] 75 mcg PO DAILY 03/30/15 [History] Phenytoin Sodium Extended [Dilantin] 100 mg PO BID 03/30/15 [History] Acetaminophen [Tylenol Arthritis] 650 mg PO BID 08/06/22 [History] Calcium Carbonate [Calcium] 600 mg PO HS 08/06/22 [History] Cetirizine HCl [Zyrtec] 10 mg PO DAILY 08/06/22 [History] Metoprolol Succinate (ER) [Toprol XL] 25 mg PO DAILY 08/06/22 [History] Metoprolol Succinate (ER) [Toprol XL] 50 mg PO HS 08/06/22 [History] Multivit-Min/Iron/Folic/Lutein [Centrum Silver Women Tablet] 1 tab PO HS 08/06/22 [History] Warfarin [Coumadin] 2.5 mg PO SUTUTHSA@209908/06/22 [History] Budesonide-Formot 160-4.5 Mcg [Symbicort 160-4.5 Mcg Inhaler] 2 puff INHALATION RT-BID #1 each 08/11/22 [Rx] Warfarin [Coumadin] 5 mg PO MOWEFR@209910/18/22 [History] Furosemide [Lasix] 40 mg PO DAILY 12/07/22 [History] Albuterol Inhaler [Ventolin Hfa Inhaler] 2 puff INHALATION RT-Q6H PRN #1 each 12/09/22 [Rx] Ascorbic Acid [Vitamin C] 1,000 mg PO DAILY tab 12/09/22 [Rx] Benzocaine/Menthol Lozeng [Cepacol lozenge] 1 each MUCOUS MEM Q4HR PRN lozenge 12/09/22 [Rx] Cholecalciferol [Vitamin D3 (25 Mcg = 1000 Iu)] 50 mcg PO DAILY tab 12/09/22 [Rx] Pantoprazole Sodium [Protonix] 40 mg PO DAILY #30 tab 12/09/22 [Rx] Zinc Sulfate [Orazinc] 220 mg PO DAILY #30 cap 12/09/22 [Rx] dexAMETHasone ORAL [Hexadrol] 6 mg PO DAILY 8 Days #24 tablet 12/09/22 [Rx] guaiFENesin SYRUP 100MG/5ML [Robitussin] 200 mg PO TID PRN ml 12/09/22 [Rx] Follow up Appointment(s)/Referral(s): Cole Hensley DO [Primary Care Provider] - 10 Days Ambulatory/Diagnostic Orders: Prothrombin Time INR [LAB.AMB] Time Frame: 3 Days, Location: None Selected Activity/Diet/Wound Care/Special Instructions: Complete quarantine as advised
--- NOTE | 2022-12-09 12:42 | P.PN ---
Subjective CHIEF COMPLAINT: Elevated troponins HISTORY OF PRESENT ILLNESS: This is a 82-year-old female with a past medical history significant for paroxysmal atrial fibrillation, hypertension, carotid bruit, sick sinus syndrome with previous pacemaker implantation, and seizure disorder. Patient follows in the office with Dr. Harvey. We have been asked to see the patient in consultation for elevated troponins. Patient examined at the bedside. Patient states she has been feeling unwell for the past week or so. She states that she had a sore throat. She also reports feeling nauseous and having dry heaves. She presented to the hospital for further evaluation. The patient was found to be positive for Covid. She denies having any chest pain or pressure. She denies having any shortness of breath. INR was found to be in subtherapeutic at 1.6. The patient states she has not taken her medications at home for the past 3 days secondary to feeling unwell. * EKG reveals ventricular paced rhythm * Chest xray negative for acute process * Current home cardiac medications include Coumadin 5 mg Wednesday and 2.5 mg Wednesday, metoprolol succinate 25 mg the morning and 50 mg a day, Lasix 40 mg daily, Cardizem CD 180mg at HS * Most recent echocardiogram obtained in September 2019 revealing ejection fraction 55%, trace AR, mild to moderate MR, mild to moderate TR * Patient underwent Hilda scan stress test in September 2019 which was negative for ischemia 12/09/2022 Reason examined this morning at the bedside. Patient denies chest pain or pressure. She denies shortness of breath. She remains on Coumadin. INR today 1.9. Vital signs are stable. PHYSICAL EXAM: Thorough physical exam not completed secondary to limited evaluation/examination due to Covid19 Lungs diminished to auscultation. No crackles noted. Minimal lower extremity edema noted. No murmur auscultated. ASSESSMENT: Acute Covid 19 Abnormal troponins, flat, secondary to above, no evidence of acute coronary syndrome Decreased oral intake 3 days Subtherapeutic INR, secondary to patient not taking her medications Paroxysmal atrial fibrillation Sick sinus syndrome with history of permanent pacemaker implantation Hypertension PLAN: An acute coronary and has been ruled out Continue current cardiac medications Continue Coumadin. Monitor INR. No need to repeat echocardiogram at this time. This may be performed on an outpatient basis once she has recovered from Covid Patient is stable for discharge home today from a cardiac standpoint We will sign off. Please reconsult if needed. Nurse practitioner note has been reviewed by physician. Signing provider agrees with the documented findings, assessment, and plan of care. Objective - Vital Signs Vital signs: Vital Signs Temp 97.7 F 12/09/22 11:49 Pulse 60 12/09/22 11:49 Resp 15 12/09/22 11:49 BP 134/75 12/09/22 11:49 Pulse Ox 96 12/09/22 11:49 FiO2 Intake & Output 12/08/22 12/09/22 12/09/22 18:59 06:59 18:59 Intake Total 200 10 Balance 200 10 Weight 99.79 kg Intake: IV 10 Invasive Line 1 10 Oral 200 Other: Voiding Method Toilet Toilet # Voids 1 1 # Bowel Movements 1 - Labs CBC & Chem 7: 12/08/22 09:16 12/08/22 09:16 Labs: Abnormal Lab Results - Last 24 Hours (Table) 12/08/22 12/08/22 12/09/22 Range/Units 16:21 20:24 07:58 PT 18.5 H (9.0-12.0) sec INR 1.9 H (<1.2) POC Glucose (mg/dL) 178 H 179 H (70-110) mg/dL 12/09/22 Range/Units 11:42 PT (9.0-12.0) sec INR (<1.2) POC Glucose (mg/dL) 130 H (70-110) mg/dL
[2022-12-09 16:51] LABS: Glucose,Whole Blood 136 mg/dL (70-110)
[2022-12-09] MEDS ORDERED: WARFARIN 5 MG TAB PO ONE (18:00)
[2022-12-09 18:10] VITALS: BP 118/74; PULSE 67; RESP 16; TEMP 98
== END 2022-12-09 18:45 | disposition home or self-care (01) | DRG 177 ==
LOC: EC 09:29 → 3SCARD 12:15 → OBSVTOIN 12-08 09:34
PROVIDERS: ADMIT Family Medicine; ATTEND Family Medicine
DX: U07.1 COVID-19 (principal); J96.01 Acute respiratory failure with hypoxia; I48.92 Unspecified atrial flutter; I48.20 Chronic atrial fibrillation, unspecified; Z68.42 Body mass index [BMI] 45.0-49.9, adult; M79.7 Fibromyalgia; R79.89 Other specified abnormal findings of blood chemistry; I11.0 Hypertensive heart disease with heart failure; E03.9 Hypothyroidism, unspecified; I27.20 Pulmonary hypertension, unspecified; I49.5 Sick sinus syndrome; K21.9 Gastro-esophageal reflux disease without esophagitis; Z79.01 Long term (current) use of anticoagulants; E66.01 Morbid (severe) obesity due to excess calories; F32.A Depression, unspecified; I08.1 Rheumatic disorders of both mitral and tricuspid valves; G40.909 Epilepsy, unspecified, not intractable, without status epilepticus; I50.9 Heart failure, unspecified; R79.1 Abnormal coagulation profile; I25.10 Atherosclerotic heart disease of native coronary artery without angina pectoris; I48.0 Paroxysmal atrial fibrillation; Z86.14 Personal history of Methicillin resistant Staphylococcus aureus infection; R11.2 Nausea with vomiting, unspecified; Z79.51 Long term (current) use of inhaled steroids; Z79.890 Hormone replacement therapy; Z79.899 Other long term (current) drug therapy; Z86.74 Personal history of sudden cardiac arrest; Z90.710 Acquired absence of both cervix and uterus; Z95.0 Presence of cardiac pacemaker; Z87.01 Personal history of pneumonia (recurrent); Z88.0 Allergy status to penicillin; Z91.041 Radiographic dye allergy status; Z88.8 Allergy status to other drugs, medicaments and biological substances
CPT/HCPCS: 36415; 71046; 80053; 80061; 80185; 83605; 83735; 84484; 85025; 85027; 85610; 87636; 93005; 94640; 94760; 96374; 99285

== ENCOUNTER → 2023-04-14 | Outpatient (CLI) | payer MEDICARE, BC ==
[2023-04-14 10:41] VITALS: BP 158/72; PULSE 50; RESP 16; TEMP 97.8
--- NOTE | 2023-04-14 11:12 | XR ---
EXAMINATION TYPE: XR lumbar spine 2 or 3V DATE OF EXAM: 04/14/2023 Comparison: None Clinical History: 82-year-old female M54.16 Lumbar Radiculopathy M51.36 OTHER DD LUMBAR Findings: Cholecystectomy clips. Partial peripheral calcification projecting in the left upper quadrant corresp onds to a complex cyst. 6 mm left renal calculus. Degenerated dextroconvex scoliosis lumbar spine. Scattered moderate degenerative disc disease. Multil evel advanced hypertrophic facet arthropathy. Vertebral body heights are preserved in degenerative grade 1 retrolisthesis L2-L3 and L3-L4. Remainin g alignment is maintained. Impression: 1. Degenerated dextro convex scoliosis. 2. Moderate degenerative disc disease throughout. 3. Hypertrophic facet arthropathy throughout. 4. Degenerative grade 1 retrolisthesis L2-L3 and L3-L4.
--- NOTE | 2023-04-14 14:31 | P.PAINPG ---
PQRS Measure Charge Sheet Comment: HISTORY OF PRESENT ILLNESS: A 82 yr old wheelchair bound female w male caregiver at side as a referral from Dr Cole Hensley presents today w severe and chronic LBP > 10 yrs secondary to DDD, spondylosis and facet arthropathy without myelopathy for evaluation. Pt states pain level is provoked at 9 /10 in intensity, constant, localized in the R lower lumbar spine, predominantly axial, sharp in character w occasional shooting pain towards the R hip and R knee. Pain is provoked by standing or laying supine for periods > 30 min. Pt can not do PT as she no longer drives, is wheelchair bound, and can not have visiting PT as areas of her home are cluttered due to reconstruction from [employer]. Pain is alleviated by injections, medications (Tramadol, Tyl), topical, heat, use of a wheelchair for ambulatory assistance, repositioning, reclining and rest. Oswestry axial pain score at 24. PMH: OA, aFlutter, aFib, Asthma, CHF, GERD, HTN, Seizure Disorder, Hypothyroid Disorder, [place] (2019), Fibromyalgia, MDD PSH: Section, Hysterectomy, BL Knee Arthroscopy, L RCT Repair, Pacemaker (2014) SH: Negative x3 FH: Mo- Breast & Lung CA. Fa- Prostate CA. Bro- Lung CA. Sis- OA All: See list Meds: See list REVIEW OF ORGAN SYSTEMS: CONSTITUTIONAL: No fevers or chills. No recent weight loss. NEUROLOGICAL: + numbness and tingling along the distal extremities. No seizure disorders or headaches. MUSCULOSKELETAL: + pain PSYCHIATRIC: Denies current depression or suicidal thoughts. Physical Examinations : Constitutional : Cooperative , not in acute distress . Neurologic : Cranial nerve II to XII intact. No focal neurological deficits. Psychiatric : alert & oriented x 3. Matching mood & appropriate affect. Judgment & insight intact. Musculoskeletal : Cervical Spine Motor strength in the deltoid and biceps: Normal right side. Normal Left side Motor strength biceps and the wrist extensors: Normal right side . Normal left side Motor strength in the triceps muscle: Normal right side. Normal left side Deep tendon reflexes: Normal at the biceps. Normal at Brachioradialis. Normal at triceps Vertebral body tenderness to deep palpation over Cervical facet loading test: positive bilaterally Spurling test: positive bilaterally Neck distraction test: positive bilaterally Watson sign: positive bilaterally Lumbar spine Motor strength lower extremities ,thigh and legs 5/5 Right side , 5/5 Left side Deep tendon reflexes : Normal Knee Jerk. Normal Ankle Jerk Vertebral body tenderness over L5 Zacarias Test positive Lumbar facet Loading Test: positive Right / positive Left Range of motion of the lumbar spine Flexion 30 degrees, extension 10 degrees Straight Leg Raise test: Left/ Right positive at degrees Baljinder test: positive right / positive left. Severe tenderness over the Sacroiliac joint on the Right / Left sides Gaenslen test: positive bilaterally Seated flexion test: positive bilaterally. Sacral spine : Severe tenderness over the Sacroiliac joint: right side / left side Range of motion: Flexion of the lumbar spine <60 degrees Range of motion: Extension of the lum bar spine <20 degrees Gaenslen's Test positive Baljinder test: positive right side / left side Thigh Thrust Test Sacral Thrust Test Imaging: CT noncontrast of the lumbar spine from 03/21/18 reviewed Assessment/ Plan : Lumbar DDD Recommendation of lumbar x ray M51.36 May need additional testing if indicated. RTC in 1-2 wks for a re evaluation. Risks, benefits of procedure discussed and patient verbalized understanding. Admits to anti- coagulant use or medical history of diabetes. Protocol for discontinuation/ continuation of medications ivan procedure discussed. Minimal anesthesia provided, if clinically indicated, consisting of Versed and Fentanyl. All questions answered. I have spent greater than 30 minutes on patient care today. Dr Rand was available by phone for the evaluation of this patient. The time was used to re view the medical records including relevant urine studies and Prescription history (MAPs), review of the available imaging, evaluation and examination of the patient, coordination of care with the medical staff and if applicable referring physicians, as well as creation of the medical record PQRS Narrative: Smoking Status Never smoker Home Medications: Ambulatory Orders Diltiazem Cd [Cardizem CD] 180 mg PO HS 03/30/15 Levothyroxine Sodium [Synthroid] 75 mcg PO DAILY 03/30/15 Phenytoin Sodium Extended [Dilantin] 100 mg PO BID 03/30/15 Acetaminophen [Tylenol Arthritis] 650 mg PO BID 08/06/22 Calcium Carbonate [Calcium] 600 mg PO HS 08/06/22 Cetirizine HCl [Zyrtec] 10 mg PO DAILY 08/06/22 Metoprolol Succinate (ER) [Toprol XL] 25 mg PO DAILY 08/06/22 Metoprolol Succinate (ER) [Toprol XL] 50 mg PO HS 08/06/22 Multivit-Min/Iron/Folic/Lutein [Centrum Silver Women Tablet] 1 tab PO HS 08/06/22 Warfarin [Coumadin] 2.5 mg PO SUTUTHSA@209908/06/22 Budesonide-Formot 160-4.5 Mcg [Symbicort 160-4.5 Mcg Inhaler] 2 puff INHALATION RT-BID #1 each 08/11/22 Warfarin [Coumadin] 5 mg PO MOWEFR@209910/18/22 Furosemide [Lasix] 40 mg PO DAILY 12/07/22 Albuterol Inhaler [Ventolin Hfa Inhaler] 2 puff INHALATION RT-Q6H PRN #1 each 12/09/22 Ascorbic Acid [Vitamin C] 1,000 mg PO DAILY tab 12/09/22 Benzocaine/Menthol Lozeng [Cepacol lozenge] 1 each MUCOUS MEM Q4HR PRN lozenge 12/09/22 Cholecalciferol [Vitamin D3 (25 Mcg = 1000 Iu)] 50 mcg PO DAILY tab 12/09/22 Pantoprazole Sodium [Protonix] 40 mg PO DAILY #30 tab 12/09/22 Zinc Sulfate [Orazinc] 220 mg PO DAILY #30 cap 12/09/22 dexAMETHasone ORAL [Hexadrol] 6 mg PO DAILY 8 Days #24 tablet 12/09/22 guaiFENesin SYRUP 100MG/5ML [Robitussin] 200 mg PO TID PRN ml 12/09/22 Controlled Substance Measures - Controlled Substance Measures Is patient prescribed a controlled substance at discharge?: No
== END ==
LOC: PNWHC3 09:39
PROVIDERS: ATTEND Specialist
DX: M51.16 Intervertebral disc disorders with radiculopathy, lumbar region (principal); M43.16 Spondylolisthesis, lumbar region; M47.26 Other spondylosis with radiculopathy, lumbar region; M19.90 Unspecified osteoarthritis, unspecified site; I48.91 Unspecified atrial fibrillation; I48.92 Unspecified atrial flutter; J45.909 Unspecified asthma, uncomplicated; K21.9 Gastro-esophageal reflux disease without esophagitis; E03.9 Hypothyroidism, unspecified; I25.2 Old myocardial infarction; F32.9 Major depressive disorder, single episode, unspecified; I11.0 Hypertensive heart disease with heart failure; I50.9 Heart failure, unspecified; Z86.69 Personal history of other diseases of the nervous system and sense organs; Z79.899 Other long term (current) drug therapy; Z79.890 Hormone replacement therapy; Z88.0 Allergy status to penicillin; Z88.5 Allergy status to narcotic agent; Z88.1 Allergy status to other antibiotic agents
CPT/HCPCS: 72100; G0463; 99211

== ENCOUNTER → 2023-04-21 | Outpatient (CLI) | payer MEDICARE, BC ==
--- NOTE | 2023-04-21 12:25 | CT ---
EXAMINATION TYPE: CT lumbar spine wo con CT DLP: 1258.1 mGycm, Automated exposure control for dose reduction was used. DATE OF EXAM: 04/21/2023 11:57 AM COMPARISON: 04/14/2023.. CLINICAL INDICATION:Female, 82 years old with history of M51.36 OTHER INTERVERTEBRAL DISC DEGENERATIO N, LUM; PHH, chronic lower back pain TECHNIQUE: Multiple axial images were obtained from the midportion of T11 through the sacroiliac emigdio nts. Soft tissue and bone windows in coronal and sagittal planes were obtained and reviewed. Contrast used: mL of , (None, if empty). Oral contrast used: (None, if empty). FINDINGS: Alignment: There are 5 lumbar type vertebral bodies within normal alignment. Bone: No evidence of fracture is identified. Multilevel degeneration changes with osteophyte formati on, disc space narrowing, facet joint arthropathy. Discs: T12-L1: No spinal canal or neural foraminal stenosis is identified. L1-L2: Facet joint arthropathy and disc bulging result with mild spinal canal stenosis and mild bilat eral neural foraminal stenosis. L2-L3: Facet joint arthropathy and disc bulging result with mild spinal canal stenosis and moderate t o severe bilateral neural foraminal stenosis. L3-L4: Facet joint arthropathy and disc bulging result with moderate spinal canal stenosis and modera te bilateral neural foraminal stenosis. L4-L5: Facet joint arthropathy and disc bulging result with moderate to severe spinal canal stenosis and moderate to severe right and moderate left bilateral neural foraminal stenosis. L5-S1: Facet joint arthropathy and disc bulging result with moderate to severe spinal canal stenosis and severe bilateral neural foraminal stenosis. Other: Left renal exophytic cyst. Nonobstructing left renal calculus measuring up to 7 mm. Atrophy ch anges of the kidneys. Atherosclerosis of the arterial vasculature. IMPRESSION: 1. No evidence for spinal fracture. 2. Moderate to severe degeneration changes with neural foraminal stenosis worse at L5-S1 bilaterally. 3. Spinal canal stenosis worse at L4-L5 and L5-S1 with moderate to severe.
== END | disposition home or self-care (01) ==
LOC: RADCTMAIN 11:28
PROVIDERS: ATTEND Specialist
DX: M47.26 Other spondylosis with radiculopathy, lumbar region (principal); M99.73 Connective tissue and disc stenosis of intervertebral foramina of lumbar region; M48.061 Spinal stenosis, lumbar region without neurogenic claudication; M51.16 Intervertebral disc disorders with radiculopathy, lumbar region
CPT/HCPCS: 72131

== ENCOUNTER → 2023-04-28 | Outpatient (CLI) | payer MEDICARE, BC ==
--- NOTE | 2023-04-28 11:04 | P.PAINPG ---
Objective - Vital Signs Vital signs: Intake & Output 04/27/23 04/28/23 04/28/23 18:59 06:59 18:59 Weight 92.986 kg PQRS Measure Charge Sheet Comment: HISTORY OF PRESENT ILLNESS: A 82 yr old wheelchair bound female w male caregiver at side presents today w severe and chronic LBP > 10 yrs secondary to DDD, spondylosis and facet arthropathy without myelopathy for evaluation. Pt states pain level is provoked at 9 /10 in intensity, constant, localized in the R lower lumbar spine, predominantly axial, sharp in character w occasional shooting pain towards the R hip and R knee. Pain is provoked by standing or laying supine for periods > 30 min. Pt can not do PT as she no longer drives, is wheelchair bound, and can not have visiting PT as areas of her home are cluttered due to reconstruction from [employer]. Pain is alleviated by injections, medications, topical, heat, use of a wheelchair for ambulatory assistance, repositioning, reclining and rest. Oswestry axial pain score at 24. Interventional procedures include Medications include Tramadol, Tyl REVIEW OF ORGAN SYSTEMS: CONSTITUTIONAL: No fevers or chills. No recent weight loss. NEUROLOGICAL: + numbness and tingling along the distal extremities. No seizure disorders or headaches. MUSCULOSKELETAL: + pain PSYCHIATRIC: Denies current depression or suicidal thoughts. Physical Examinations : Constitutional : Cooperative , not in acute distress . Neurologic : Cranial nerve II to XII intact. No focal neurological deficits. Psychiatric : alert & oriented x 3. Matching mood & appropriate affect. Judgment & insight intact. Musculoskeletal : Cervical Spine Motor strength in the deltoid and biceps: Normal right side. Normal Left side Motor strength biceps and the wrist extensors: Normal right side . Normal left side Motor strength in the triceps muscle: Normal right side. Normal left side Deep tendon reflexes: Normal at the biceps. Normal at Brachioradialis. Normal at triceps Vertebral body tenderness to deep palpation over Cervical facet loading test: positive bilaterally Spurling test: positive bilaterally Neck distraction test: positive bilaterally Watson sign: positive bilaterally Lumbar spine Motor strength lower extremities ,thigh and legs 5/5 Right side , 5/5 Left side Deep tendon reflexes : Normal Knee Jerk. Normal Ankle Jerk Vertebral body tenderness over L5 Zacarias Test positive Lumbar facet Loading Test: positive Right / positive Left Range of motion of the lumbar spine Flexion 30 degrees, extension 10 degrees Straight Leg Raise test: Left/ Right positive at <30 degrees Baljinder test: positive right / positive left. Severe tenderness over the Sacroiliac joint on the Right / Left sides Gaenslen test: positive bilaterally Seated flexion test: positive bilaterally. Sacral spine : Severe tenderness over the Sacroiliac joint: right side / left side Range of motion: Flexion of the lumbar spine <60 degrees Range of motion: Extension of the lumbar spine <20 degrees Gaenslen's Test positive Baljinder test: positive right side / left side Thigh Thrust Test Sacral Thrust Test Imaging: CT noncontrast of the lumbar spine from 04/21/23 reviewed Assessment/ Plan : Lumbar DDD Recommendation of TASHA L5-S1 #1. May need a series of injections for optimal pain relief. Risks, benefits of procedure discussed and patient verbalized understanding. Protocol for discontinuation/continuation of medications surrounding procedure discussed. All questions answered. I have spent greater than 30 minutes on patient care today. Dr Rand was available by phone for the evaluation of this patient. The time was used to review the medical records including relevant urine studies and Prescription history (MAPs), review of the available imaging, evaluation and examination of the patient, coordination of care with the medical staff and if applicable referring physicians, as well as creation of the medical record PQRS Narrative: Smoking Status Never smoker Hx Alcohol Use (MH) No Home Medications: Ambulatory Orders Diltiazem Cd [Cardizem CD] 180 mg PO HS 03/30/15 Levothyroxine Sodium [Synthroid] 75 mcg PO DAILY 03/30/15 Phenytoin Sodium Extended [Dilantin] 100 mg PO BID 03/30/15 Acetaminophen [Tylenol Arthritis] 650 mg PO BID 08/06/22 Calcium Carbonate [Calcium] 600 mg PO HS 08/06/22 Cetirizine HCl [Zyrtec] 10 mg PO DAILY 08/06/22 Metoprolol Succinate (ER) [Toprol XL] 25 mg PO DAILY 08/06/22 Metoprolol Succinate (ER) [Toprol XL] 50 mg PO HS 08/06/22 Multivit-Min/Iron/Folic/Lutein [Centrum Silver Women Tablet] 1 tab PO HS 08/06/22 Warfarin [Coumadin] 2.5 mg PO SUTUTHSA@2100 08/06/22 Budesonide-Formot 160-4.5 Mcg [Symbicort 160-4.5 Mcg Inhaler] 2 puff INHALATION RT-BID #1 each 08/11/22 Warfarin [Coumadin] 5 mg PO MOWEFR@2100 10/18/22 Furosemide [Lasix] 40 mg PO DAILY 12/07/22 Albuterol Inhaler [Ventolin Hfa Inhaler] 2 puff INHALATION RT-Q6H PRN #1 each 12/09/22 Ascorbic Acid [Vitamin C] 1,000 mg PO DAILY tab 12/09/22 Benzocaine/Menthol Lozeng [Cepacol lozenge] 1 each MUCOUS MEM Q4HR PRN lozenge 12/09/22 Cholecalciferol [Vitamin D3 (25 Mcg = 1000 Iu)] 50 mcg PO DAILY tab 12/09/22 Pantoprazole Sodium [Protonix] 40 mg PO DAILY #30 tab 12/09/22 Zinc Sulfate [Orazinc] 220 mg PO DAILY #30 cap 12/09/22 dexAMETHasone ORAL [Hexadrol] 6 mg PO DAILY 8 Days #24 tablet 12/09/22 guaiFENesin SYRUP 100MG/5ML [Robitussin] 200 mg PO TID PRN ml 12/09/22 Controlled Substance Measures - Controlled Substance Measures Is patient prescribed a controlled substance at discharge?: No
[2023-04-28 11:11] VITALS: BP 164/78; PULSE 78; RESP 15; TEMP 98.6
== END ==
LOC: PNWHC3 10:35
PROVIDERS: ATTEND Specialist
DX: M51.36 Other intervertebral disc degeneration, lumbar region (principal); Z88.1 Allergy status to other antibiotic agents; Z88.5 Allergy status to narcotic agent; Z88.0 Allergy status to penicillin
CPT/HCPCS: 99211

== ENCOUNTER 2023-05-06 12:13 | Day surgery (SDC) | payer MEDICARE, BC ==
[~2023-05-06 12:13] MED LIST: LACTATED RINGERS 1,000 ML IV SCH
[2023-05-06 12:55] LABS: Glucose,Whole Blood 92 mg/dL (70-110)
[2023-05-06 13:02] VITALS: RESP 16; TEMP 97.1
[2023-05-06 13:07] LABS: INR 1.1 (<1.2); Prothrombin Time 11.9 sec (10.0-12.5)
[2023-05-06] MEDS ORDERED: methylPREDNISolone ACETATE 80 MG/ML 1 ML VIAL ONE (13:18)
[2023-05-06] MEDS ORDERED: ROPIVACAINE 5MG/ML 20ML VIAL ONE (13:18)
[2023-05-06] MEDS ORDERED: IOPAMIDOL M200 10 ML VIAL ONE (13:18)
--- NOTE | 2023-05-06 13:30 | P.PCN ---
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 3-lumbar spinal stenosis POSTOPERATIVE DIAGNOSIS: 1-lumbar degenerative disc disease. 2-lumbar spondylosis with facet arthropathy without myelopathy. 3-lumbar spinal stenosis. PROCEDURE Injection of radio contrast material into L5-S1 interspace, interpretation of epidurogram, injection of steroid at L5-X0byuwuyap space under fluoroscopic guidance. ANESTHESIA: Lidocaine 1% subcutaneously. In OR continuous pulse ox, EKG, blood pressure and verbal communication was maintained with the patient. EBL: Minimal PROCEDURE INDICATION: Before the procedure were discussed with the patient detailed procedure, alternatives, complications including infection, bleeding, nerve damage, paralysis all of which could be permanent. Patient understands and all questions were answered. PROCEDURE DESCRIPTION : After getting consent, patient in OR in prone position. Back was prepped with chlorhexidine and draped in sterile fashion. After injecting 10 mL of 1% lidocaine subcutaneously, a 20-gauge Tuohy needle was introduced at L5-S1 interspace with loss of resistance technique using a syringe filled with air. Negative CSF, negative blood, negative paresthesia. Needle position was confirmed with AP and lateral view of the fluoroscope. After repeat negative aspiration 2 mL of Omnipaque 200 water soluble contrast was injected. Contrast was noted in the epidural space. No contrast was noted into intrathecal or intravascular space. After repeat negative aspiration 6 mL solution was injected intermittently which consists of 5 mL of preservative-free normal saline mixed with 1 mL of 80 mg Depo-Medrol. Needle was withdrawn intact. Skin was cleansed and Band-Aids was applied. DISPOSITION / PLANS: The patient tolerated the procedure well. No complication. The patient was placed in a supine position and transferred to the recovery area in a stable condition for observation. There was no evidence of lower extremity motor or sensory deficit after the procedure. Patient was discharged from the recovery room after meeting discharge criteria. Home discharge instructions were given to the patient by the staff. The patient was reexamined prior to discharge. The patient will schedule a follow up in the clinic in 2-4 weeks.
--- NOTE | 2023-05-06 13:42 | FL ---
EXAMINATION TYPE: FL guided pain mgmt statistic Intraoperative/procedural fluoroscopic services were provided. Total fluoroscopy time is 12.4 seconds with a total of 1 submitted images to PACS. Please s ee the operative/procedural note for further details. DAP: 0.36976 mGym2
[2023-05-06 14:09] VITALS: BP 135/70; PULSE 49
== END 2023-05-06 14:00 | disposition home or self-care (01) ==
LOC: ORPAIN 12:13
PROVIDERS: ATTEND Pain Medicine Interventional Pain Medicine
DX: M51.36 Other intervertebral disc degeneration, lumbar region (principal); M54.16 Radiculopathy, lumbar region; M47.816 Spondylosis without myelopathy or radiculopathy, lumbar region; M48.061 Spinal stenosis, lumbar region without neurogenic claudication; M54.50 Low back pain, unspecified; Z88.0 Allergy status to penicillin; Z88.1 Allergy status to other antibiotic agents; Z88.5 Allergy status to narcotic agent; Z79.01 Long term (current) use of anticoagulants
CPT/HCPCS: 85610; 62323; J1040; Q9966; J2795

== ENCOUNTER → 2023-05-27 | Outpatient (CLI) | payer MEDICARE, BC ==
[2023-05-27 11:07] VITALS: BP 146/82; PULSE 71; RESP 16; TEMP 98.4
--- NOTE | 2023-05-27 14:37 | P.PAINPG ---
PQRS Measure Charge Sheet Comment: HISTORY OF PRESENT ILLNESS: A 82 yr old wheelchair bound female w male caregiver at side presents today w severe and chronic LBP > 10 yrs secondary to DDD, spondylosis and facet arthropathy without myelopathy for evaluation s/p TASHA L5-S1 #1. Pt states she experienced 80 % pain relief x 3 wks s/p procedure. Pt states pain level is provoked at 6 /10 in intensity, constant, localized in the R lower lumbar spine, predominantly axial, sharp in character w occasional shooting pain towards the R knee. Pain is provoked by standing or laying supine for periods > 30 min. Pt can not do PT as she no longer drives, is wheelchair bound, and can not have visiting PT as areas of her home are cluttered due to reconstruction from [employer]. Pain is alleviated by injections, medications, topical, heat, use of a wheelchair for ambulatory assistance, repositioning, reclining and rest. Oswestry axial pain score at 23. Interventional procedures include TASHA L5-S1 x1 Medications include Tramadol, Tyl REVIEW OF ORGAN SYSTEMS: CONSTITUTIONAL: No fevers or chills. No recent weight los s. NEUROLOGICAL: + numbness and tingling along the distal extremities. No seizure disorders or headaches. MUSCULOSKELETAL: + pain PSYCHIATRIC: Denies current depression or suicidal thoughts. Physical Examinations : Constitutional : Cooperative , not in acute distress . Neurologic : Cranial nerve II to XII intact. No focal neurological deficits. Psychiatric : alert & oriented x 3. Matching mood & appropriate affect. Judgment & insight intact. Musculoskeletal : Cervical Spine Motor strength in the deltoid and biceps: Normal right side. Normal Left side Motor strength biceps and the wrist ex tensors: Normal right side . Normal left side Motor strength in the triceps muscle: Normal right side. Normal left side Deep tendon reflexes: Normal at the biceps. Normal at Brachioradialis. Normal at triceps Vertebral body tenderness to deep palpation over Cervical facet loading test: positive bilaterally Spurling test: positive bilaterally Neck distraction test: positive bilaterally Watson sign: positive bilaterally Lumbar spine Motor strength lower extremities ,thigh and legs 5/5 Right side , 5/5 Left side Deep tendon reflexes : Normal Knee Jerk. Normal Ankle Jerk Vertebral body tenderness over L4 Zacarias Test positive Lumbar facet Loading Test: positive Right / positive Left Range of motion of the lumbar spine Flexion 30 degrees, extension 10 degrees Straight Leg Raise test: Left/ Right positive at <30 degrees Baljinder test: positive right / positive left. Severe tenderness over the Sacroiliac joint on the Right / Left sides Gaenslen test: positive bilaterally Seated flexion test: positive bilaterally. Sacral spine : Severe tenderness over the Sacroiliac joint: right side / left side Range of motion: Flexion of the lumbar spine <60 degrees Range of motion: Extension of the lumbar spine <20 degrees Gaenslen's Test positive Baljinder test: positive right side / left side Thigh Thrust Test Sacral Thrust Test Imaging: CT noncontrast of the lumbar spine from 04/21/23 reviewed Assessment/ Plan : Lumbar DDD Recommendation of R paramedian TASHA L4-L5 #2. May need a series of injections for optimal pain relief. Risks, benefits of procedure discussed and patient verbalized understanding. Protocol for discontinuation/continuation of medications surrounding procedure discussed. All questions answered. I have spent greater than 30 minutes on patient care today. Dr Rand was available by phone for the evaluation of this patient. The time was used to review the medical records including relevant urine studies and Prescription history (MAPs), review of the available imaging, evaluation and examination of the patient, coordination of care with the medical staff and if applicable referring physicians, as well as creation of the medical record PQRS Narrative: Smoking Status Never smoker Hx Alcohol Use (MH) No Home Medications: Ambulatory Orders Diltiazem Cd [Cardizem CD] 180 mg PO HS 03/30/15 Levothyroxine Sodium [Synthroid] 75 mcg PO DAILY 03/30/15 Phenytoin Sodium Extended [Dilantin] 100 mg PO BID 03/30/15 Acetaminophen [Tylenol Arthritis] 650 mg PO DIRECTED PRN 08/06/22 Calcium Carbonate [Calcium] 600 mg PO HS 08/06/22 Cetirizine HCl [Zyrtec] 10 mg PO DAILY 08/06/22 Metoprolol Succinate (ER) [Toprol XL] 25 mg PO DAILY 08/06/22 Metoprolol Succinate (ER) [Toprol XL] 50 mg PO HS 08/06/22 Multivit-Min/Iron/Folic/Lutein [Centrum Silver Women Tablet] 1 tab PO HS 08/06/22 Warfarin [Coumadin] 2.5 mg PO TU@2100 08/06/22 Warfarin [Coumadin] 5 mg PO SUMOWETHFRSA 10/18/22 Furosemide [Lasix] 40 mg PO DAILY PRN 12/07/22 Albuterol Inhaler [Ventolin Hfa Inhaler] 2 puff INHALATION RT-Q6H PRN #1 each 12/09/22 Ascorbic Acid [Vitamin C] 1,000 mg PO DAILY tab 12/09/22 Budesonide-Formot 160-4.5 Mcg [Symbicort 160-4.5 Mcg Inhaler] 2 puff INHALATION RT-BID PRN 05/03/23 Pantoprazole Sodium [Protonix] 40 mg PO DAILY PRN 05/03/23 Unk Biotin 1 tab PO DAILY 05/03/23 traMADol HCL 50 mg PO BID 05/03/23 Controlled Substance Measures - Controlled Substance Measures Is patient prescribed a controlled substance at discharge?: No
== END ==
LOC: PNWHC3 09:35
PROVIDERS: ATTEND Specialist
DX: M51.36 Other intervertebral disc degeneration, lumbar region (principal); Z88.1 Allergy status to other antibiotic agents; Z88.5 Allergy status to narcotic agent; Z88.0 Allergy status to penicillin
CPT/HCPCS: 99211

== ENCOUNTER 2023-06-15 06:24 | Day surgery (SDC) | payer MEDICARE, BC ==
[2023-06-15 07:34] VITALS: TEMP 97.8
[2023-06-15 07:51] LABS: INR 1.2 (<1.2); Prothrombin Time 12.4 sec (10.0-12.5)
[2023-06-15] MEDS ORDERED: ROPIVACAINE 5MG/ML 20ML VIAL ONE (09:04)
[2023-06-15] MEDS ORDERED: IOPAMIDOL M300 15ML VIAL ONE (09:04)
[2023-06-15] MEDS ORDERED: methylPREDNISolone ACETATE 80 MG/ML 1 ML VIAL ONE (09:04)
--- NOTE | 2023-06-15 09:27 | P.PCN ---
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 3-lumbar spinal stenosis POSTOPERATIVE DIAGNOSIS: 1-lumbar degenerative disc disease. 2-lumbar spondylosis with facet arthropathy without myelopathy. 3-lumbar spinal stenosis. PROCEDURE Injection of radio contrast material into L4-5 interspace, interpretation of epidurogram, injection of steroid at L4- 5 epidural space under fluoroscopic guidance. ANESTHESIA: Lidocaine 1% subcutaneously. In OR continuous pulse ox, EKG, blood pressure and verbal communication was maintained with the patient. EBL: Minimal PROCEDURE INDICATION: Before the procedure were discussed with the patient detailed procedure, alternatives, complications including infection, bleeding, nerve damage, paralysis all of which could be permanent. Patient understands and all questions were answered. PROCEDURE DESCRIPTION : After getting consent, patient in OR in prone position. Back was prepped with chlorhexidine and draped in sterile fashion. After injecting 10 mL of 1% lidocaine subcutaneously, a 20-gauge Tuohy needle was introduced at L4 5 interspace with loss of resistance technique using a syringe filled with air. Negative CSF, negative blood, negative paresthesia. Needle position was confirmed with AP and lateral view of the fluoroscope. After repeat negative aspiration 2 mL of Omnipaque 200 water soluble contrast was injected. Contrast was noted in the epidural space. No contrast was noted into intrathecal or intravascular space. After repeat negative aspiration 6 mL solution was injected intermittently which consists of 5 mL of preservative-free normal saline mixed with 1 mL of 80 mg Depo-Medrol. Needle was withdrawn intact. Skin was cleansed and Band-Aids was applied. DISPOSITION / PLANS: The patient tolerated the procedure well. No complication. The patient was placed in a supine position and transferred to the recovery area in a stable condition for observation. There was no evidence of lower extremity motor or sensory deficit after the procedure. Patient was discharged from the recovery room after meeting discharge criteria. Home discharge instructions were given to the patient by the staff. The patient was reexamined prior to discharge. The patient will schedule a follow up in the clinic in 2-4 weeks.
[2023-06-15 09:59] VITALS: BP 160/74; PULSE 64; RESP 16
--- NOTE | 2023-06-16 02:15 | FL ---
EXAMINATION TYPE: FL guided pain mgmt statistic DATE OF EXAM: 06/15/2023 CLINICAL HISTORY: Low back pain. TECHNIQUE: Fluoroscopy. COMPARISON: None. FINDINGS: Fluoroscopic guidance was provided during pain relief procedure performed by Dr. Felipe . A total of 14.7 seconds of fluoroscopic time was utilized during the procedure and 1 spot image is ac quired. Single image acquired shows needle localization in the lumbar spine from posterior approach. IMPRESSION: As Above. TOTAL DAP = 0.92860 mGy x m2.
== END 2023-06-15 09:55 | disposition home or self-care (01) ==
LOC: ORPAIN 06:24
PROVIDERS: ATTEND Pain Medicine Interventional Pain Medicine
DX: M51.36 Other intervertebral disc degeneration, lumbar region (principal); M47.816 Spondylosis without myelopathy or radiculopathy, lumbar region; M48.061 Spinal stenosis, lumbar region without neurogenic claudication; Z88.5 Allergy status to narcotic agent; Z88.0 Allergy status to penicillin; Z88.1 Allergy status to other antibiotic agents; Z79.01 Long term (current) use of anticoagulants
CPT/HCPCS: 85610; 62323; J1040; Q9967; J2795

== ENCOUNTER → 2023-07-14 | Outpatient (CLI) | payer MEDICARE, BC ==
[2023-07-14 12:23] VITALS: BP 122/62; PULSE 69; RESP 15; TEMP 98.5
--- NOTE | 2023-07-14 13:49 | P.PAINPG ---
Objective - Vital Signs Vital signs: Intake & Output 07/13/23 07/14/23 07/14/23 18:59 06:59 18:59 Weight 86.183 kg PQRS Measure Charge Sheet Comment: HISTORY OF PRESENT ILLNESS: A 83 yr old wheelchair bound female w male caregiver at side presents today w severe and chronic LBP > 10 yrs secondary to DDD, spondylosis and facet arthropathy without myelopathy for evaluation s/p TASHA L4-5 #2. Pt states she experienced 80 % pain relief x 4 wks s/p procedure. Pt states pain level is provoked at 6 /10 in intensity, constant, localized in the R lower lumbar spine, predominantly axial, sharp in character w occasional shooting pain towards the R knee. Pain is provoked by standing or laying supine for periods > 30 min. Pt can not do PT as she no longer drives, is wheelchair bound, and can not have visiting PT as areas of her home are cluttered due to reconstruction from [employer]. Pain is alleviated by injections, medications, topical, heat, use of a wheelchair for ambulatory assistance, repositioning, reclining and rest. Oswestry axial pain score at 22. Interventional procedures include TASHA L5-S1 x1, TASHA L4-L5 x1 (Jun 2023) Medications include Tramadol, Tyl REVIEW OF ORGAN SYSTEMS: CONSTITUTIONAL: No fevers or chills. No recent weight loss. NEUROLOGICAL: + numbness and tingling along the distal extremities. No seizure disorders or headaches. MUSCULOSKELETAL: + pain PSYCHIATRIC: Denies current depression or suicidal thoughts. Physical Examinations : Constitutional : Cooperative , not in acute distress . Neurologic : Cranial nerve II to XII intact. No focal neurological deficits. Psychiatric : alert & oriented x 3. Matching mood & appropriate affect. Judgment & insight intact. Musculoskeletal : Cervical Spine Motor strength in the deltoid and biceps: Normal right side. Normal Left side Motor strength biceps and the wrist extensors: Normal right side . Normal left side Motor strength in the triceps muscle: Normal right side. Normal left side Deep tendon reflexes: Normal at the biceps. Normal at Brachioradialis. Normal at triceps Vertebral body tenderness to deep palpation over Cervical facet loading test: positive bilaterally Spurling test: positive bilaterally Neck distraction test: positive bilaterally Watson sign: positive bilaterally Lumbar spine Motor strength lower extremities ,thigh and legs 5/5 Right side , 5/5 Left side Deep tendon reflexes : Normal Knee Jerk. Normal Ankle Jerk Vertebral body tenderness over L4 Zacarias Test positive Lumbar facet Loading Test: positive Right / positive Left Range of motion of the lumbar spine Flexion 30 degrees, extension 10 degrees Straight Leg Raise test: Left/ Right positive at <30 degrees Baljinder test: positive right / positive left. Severe tenderness over the Sacroiliac joint on the Right / Left sides Gaenslen test: positive bilaterally Seated flexion test: positive bilaterally. Sacral spine : Severe tenderness over the Sacroiliac joint: right side / left side Range of motion: Flexion of the lumbar spine <60 degrees Range of motion: Extension of the lumbar spine <20 degrees Gaenslen's Test positive Baljinder test: positive right side / left side Thigh Thrust Test Sacral Thrust Test Imaging: CT noncontrast of the lumbar spine from 04/21/23 reviewed Assessment/ Plan : Lumbar DDD Recommendation of R paramedian TASHA L4-L5 #3. May need a series of injections for optimal pain relief. Risks, benefits of procedure discussed and patient verbalized understanding. Protocol for discontinuation/continuation of medications surrounding procedure discussed. All questions answered. I have spent greater than 30 minutes on patient care today. Dr Rand was available by phone for the evaluation of this patient. The time was used to review the medical records including relevant urine studies and Prescription history (MAPs), review of the available imaging, evaluation and examination of the patient, coordination of care with the medical staff and if applicable referring physicians, as well as creation of the medical record PQRS Narrative: Smoking Status Never smoker Hx Alcohol Use (MH) No Home Medications: Ambulatory Orders Diltiazem Cd [Cardizem CD] 180 mg PO HS 03/30/15 Levothyroxine Sodium [Synthroid] 75 mcg PO DAILY 03/30/15 Phenytoin Sodium Extended [Dilantin] 100 mg PO BID 03/30/15 Acetaminophen [Tylenol Arthritis] 650 mg PO DIRECTED PRN 08/06/22 Calcium Carbonate [Calcium] 600 mg PO HS 08/06/22 Cetirizine HCl [Zyrtec] 10 mg PO DAILY 08/06/22 Metoprolol Succinate (ER) [Toprol XL] 25 mg PO DAILY 08/06/22 Metoprolol Succinate (ER) [Toprol XL] 50 mg PO HS 08/06/22 Multivit-Min/Iron/Folic/Lutein [Centrum Silver Women Tablet] 1 tab PO HS 08/06/22 Warfarin [Coumadin] 2.5 mg PO TU@2100 08/06/22 Warfarin [Coumadin] 5 mg PO SUMOWETHFRSA 10/18/22 Furosemide [Lasix] 40 mg PO DAILY PRN 12/07/22 Albuterol Inhaler [Ventolin Hfa Inhaler] 2 puff INHALATION RT-Q6H PRN #1 each 12/09/22 Budesonide-Formot 160-4.5 Mcg [Symbicort 160-4.5 Mcg Inhaler] 2 puff INHALATION RT-BID PRN 05/03/23 Unk Biotin 1 tab PO DAILY 05/03/23 Controlled Substance Measures - Controlled Substance Measures Is patient prescribed a controlled substance at discharge?: No
== END | disposition home or self-care (01) ==
LOC: PNWHC3 11:08
PROVIDERS: ATTEND Specialist
DX: M51.36 Other intervertebral disc degeneration, lumbar region (principal); Z88.1 Allergy status to other antibiotic agents; Z88.5 Allergy status to narcotic agent; Z88.0 Allergy status to penicillin
CPT/HCPCS: 99211

== ENCOUNTER 2023-07-20 12:46 | Day surgery (SDC) | payer MEDICARE, BC ==
[2023-07-20 14:07] LABS: INR 1.1 (<1.2); Prothrombin Time 11.7 sec (10.0-12.5)
[2023-07-20] MEDS ORDERED: IOPAMIDOL M200 10 ML VIAL ONE (14:29)
[2023-07-20] MEDS ORDERED: methylPREDNISolone ACETATE 40 MG/ML 1 ML VIAL ONE (14:29)
[2023-07-20 14:39] VITALS: PULSE 52; RESP 16; TEMP 97.2
--- NOTE | 2023-07-20 14:40 | P.PCN ---
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 3-lumbar radiculopathy POSTOPERATIVE DIAGNOSIS: 1-lumbar degenerative disc disease. 2-lumbar spondylosis with facet arthropathy without myelopathy. 3-lumbar radiculopathy PROCEDURE 1. Lumbar epidural steroid injection under fluoroscopic guidance at the L5-S1 level. (Fluoroscopy imaging was available in radiology department) 2. Lumbar epidurogram. (attepted at L4-5 was not successful for this reason the procedure was done at L5-S1 ANESTHESIA: Lidocaine 1% 3 and then only. EBL: Minimal PROCEDURE INDICATION: The patient with low back pain and radiculitis symptoms unresponsive to conservative treatment. Fluoroscopy was used to optimize visualization of the needle placement and to maximize safety. PROCEDURE DESCRIPTION / TECHNIQUE: The patient was seen and identified in the preoperative area. Risks, benefits, complications including but not limited to infections ,bleeding ,allergic reaction to the medications ,nerve damage and not complete pain releife , and alternatives were discussed with the patient. The patient agreed to proceed with the procedure and signed the consent, and vital signs were stable. Patient was taken to the OR and time out was completed. The patient was placed in the prone position on procedure table and a pillow was placed under the abdomen to reduce lumbar lordosis. The lumbosacral area was prepped and draped in the usual sterile fashion.ere closely monitored during the procedure. Vital signs was monitered during the entire procedure. Using anterior-posterior fluoroscopy, the 4 5 identified ,multiple attempt to enter the epidural space at L4-5 was not successful for this reason we moved to L5-S1 interlaminar space was identified and the skin over this site was marked and then infiltrated with 1% lidocaine subcutaneously. Subsequently, a 20-gauge Tuohy epidural needle was inserted and advanced toward the epidural space( right paramedial ) using the ``Loss of resistance technique and guided by AP and lateral fluoroscopy. The correct needle position in the epidural space was verified with the injection of 2 mL of the water soluble contrast dye Isovue 200 contrast and observing an excellent epidurogram with the epidural spread of the dye, after negative aspiration for blood and CSF and in the absence of paresthesias. Again after negative aspiration, a 6 ml mixture containing 40 mg of Depo-medrol ( Preservetive Free ), and 2 ml of preservative free Normal Saline, and 2 ml of preservative free lidocaine 1% solution was injected and a washout of epidurogram was seen. Needle was withdrawn intact, skin was cleansed, and bandages were applied. COMPLICATIONS: None DISPOSITION / PLANS: The patient was placed in a supine position and transferred to the recovery area in a stable condition for observation. There was no evidence of lower extremity motor or sensory deficit after the procedure. Patient was discharged from the recovery room after meeting discharge criteria. Home discharge instructions were given to the patient by the staff. The patient was reexamined prior to discharge. The patient will schedule a follow up in the clinic in 2-4 weeks.
[2023-07-20 15:22] VITALS: BP 135/53
--- NOTE | 2023-07-20 15:36 | FL ---
EXAMINATION TYPE: FL guided pain mgmt statistic Intraoperative/procedural fluoroscopic services were provided. Total fluoroscopy time is 5.8 seconds with a total of 1 submitted images to PACS. Please se e the operative/procedural note for further details. DAP: 0.54786 mGym2
== END 2023-07-20 15:22 | disposition home or self-care (01) ==
LOC: ORPAIN 12:46
PROVIDERS: ATTEND Specialist
DX: M51.16 Intervertebral disc disorders with radiculopathy, lumbar region (principal); M47.26 Other spondylosis with radiculopathy, lumbar region; I48.91 Unspecified atrial fibrillation; Z88.0 Allergy status to penicillin; Z88.5 Allergy status to narcotic agent; Z88.1 Allergy status to other antibiotic agents; Z79.891 Long term (current) use of opiate analgesic; Z79.01 Long term (current) use of anticoagulants
CPT/HCPCS: 85610; 62323; Q9966; J1010

== ENCOUNTER → 2023-08-11 | Outpatient (CLI) | payer MEDICARE, BC ==
[2023-08-11 14:28] VITALS: BP 160/80; PULSE 53; RESP 16
--- NOTE | 2023-08-11 15:52 | P.PAINPG ---
PQRS Measure Charge Sheet Comment: HISTORY OF PRESENT ILLNESS: A 83 yr old wheelchair bound female w male caregiver at side presents today w severe and chronic LBP > 10 yrs secondary to DDD, spondylosis and facet arthropathy without myelopathy for evaluation s/p TASHA L5-S1 #3. Pt states she experienced 50 % pain relief x 3 wks s/p procedure. Pt states pain level is provoked at 6 /10 in intensity, constant, localized in the lower lumbar spine, predominantly axial, sharp in character w occasional shooting pain towards the R hip. Pain is provoked by standing or laying supine for periods > 30 min. Pt can not do PT as she no longer drives, is wheelchair bound, and can not have visiting PT as areas of her home are cluttered due to reconstruction from [employer]. Pain is alleviated by injections, medications, topical, heat, use of a wheelchair for ambulatory assistance, repositioning, reclining and rest. Oswestry axial pain score at 21. Interventional procedures include TASHA L5-S1 x2 (Jul 2023), TASHA L4-L5 x1 (Jun 2023) Medications include Tramadol, Tyl Arthritis REVIEW OF ORGAN SYSTEMS: CONSTITUTIONAL: No fevers or chills. No recent weight loss. NEUROLOGICAL: + numbness and tingling along the distal extremities. No seizure disorders or headaches. MUSCULOSKELETAL: + pain PSYCHIATRIC: Denies current depression or suicidal thoughts. Physical Examinations : Constitutional : Cooperative , not in acute distress . Neurologic : Cranial nerve II to XII intact. No focal neurological deficits. Psychiatric : alert & oriented x 3. Matching mood & appropriate affect. Judgment & insight intact. Musculoskeletal : Cervical Spine Motor strength in the deltoid and biceps: Normal right side. Normal Left side Motor strength biceps and the wrist extensors: Normal right side . Normal left side Motor strength in the triceps muscle: Normal right side. Normal left side Deep tendon reflexes: Normal at the biceps. Normal at Brachioradialis. Normal at triceps Vertebral body tenderness to deep palpation over Cervical facet loading test: positive bilaterally Spurling test: positive bilaterally Neck distraction test: positive bilaterally Watson sign: positive bilaterally Lumbar spine Motor strength lower extremities ,thigh and legs 5/5 Right side , 5/5 Left side Deep tendon reflexes : Normal Knee Jerk. Normal Ankle Jerk Vertebral body tenderness over L3 Zacarias Test positive BL L3-L4 Lumbar facet Loading Test: positive Right / positive Left Range of motion of the lumbar spine Flexion 30 degrees, extension 10 degrees Straight Leg Raise test: Left/ Right positive at <30 degrees Baljinder test: positive right / positive left. Severe tenderness over the Sacroiliac joint on the Right / Left sides Gaenslen test: positive bilaterally Seated flexion test: positive bilaterally. Sacral spine : Severe tenderness over the Sacroiliac joint: right side / left side Range of motion: Flexion of the lumbar spine <60 degrees Range of motion: Extension of the lumbar spine <20 degrees Gaenslen's Test positive Baljinder test: positive right side / left side Thigh Thrust Test Sacral Thrust Test Imaging: CT noncontrast of the lumbar spine from 04/21/23 reviewed Assessment/ Plan : Lumbar DDD Recommendation of TASHA L3-L4 #4. May need a series of injections for optimal pain relief. Risks, benefits of procedure discussed and patient verbalized understanding. Protocol for discontinuation/continuation of medications surrounding procedure discussed. All questions answered. I have spent greater than 30 minutes on patient care today. Dr Rand was available by phone for the evaluation of this patient. The time was used to review the medical records including relevant urine studies and Prescription history (MAPs), review of the available imaging, evaluation and examination of the patient, coordination of care with the medical staff and if applicable referring physicians, as well as creation of the medical record PQRS Narrative: Smoking Status Never smoker Hx Alcohol Use (MH) No Home Medications: Ambulatory Orders Diltiazem Cd [Cardizem CD] 180 mg PO HS 03/30/15 Levothyroxine Sodium [Synthroid] 75 mcg PO QAM 03/30/15 Phenytoin Sodium Extended [Dilantin] 100 mg PO BID 03/30/15 Acetaminophen [Tylenol Arthritis] 650 mg PO DIRECTED PRN 08/06/22 Calcium Carbonate [Calcium] 600 mg PO HS 08/06/22 Cetirizine HCl [Zyrtec] 10 mg PO QAM 08/06/22 Metoprolol Succinate (ER) [Toprol XL] 25 mg PO QAM 08/06/22 Metoprolol Succinate (ER) [Toprol XL] 50 mg PO HS 08/06/22 Multivit-Min/Iron/Folic/Lutein [Centrum Silver Women Tablet] 1 tab PO HS 08/06/22 Warfarin [Coumadin] 7.5 mg PO TU@2100 08/06/22 Warfarin [Coumadin] 5 mg PO SUMOWETHFRSA 10/18/22 Furosemide [Lasix] 40 mg PO DAILY PRN 12/07/22 Albuterol Inhaler [Ventolin Hfa Inhaler] 2 puff INHALATION RT-Q6H PRN #1 each 12/09/22 Budesonide-Formot 160-4.5 Mcg [Symbicort 160-4.5 Mcg Inhaler] 2 puff INHALATION RT-BID PRN 05/03/23 Unk Biotin 1 tab PO DAILY 05/03/23 Controlled Substance Measures - Controlled Substance Measures Is patient prescribed a controlled substance at discharge?: No
== END ==
LOC: PNWHC3 13:40
PROVIDERS: ATTEND Specialist
DX: M51.36 Other intervertebral disc degeneration, lumbar region (principal); G89.29 Other chronic pain; M47.816 Spondylosis without myelopathy or radiculopathy, lumbar region; Z88.1 Allergy status to other antibiotic agents; Z88.5 Allergy status to narcotic agent; Z88.0 Allergy status to penicillin
CPT/HCPCS: 99211

== ENCOUNTER 2023-08-26 11:52 | Day surgery (SDC) | payer MEDICARE, BC ==
[2023-08-26] MEDS ORDERED: LACTATED RINGERS 1,000 ML IV SCH (12:26)
[2023-08-26 13:09] VITALS: RESP 16; TEMP 98.1
[2023-08-26 13:13] LABS: Prothrombin Time 10.9 sec (10.0-12.5)
[2023-08-26] MEDS ORDERED: methylPREDNISolone ACETATE 40 MG/ML 1 ML VIAL ONE (13:29)
[2023-08-26] MEDS ORDERED: IOPAMIDOL M200 10 ML VIAL ONE (13:29)
--- NOTE | 2023-08-26 13:37 | P.PCN ---
Date of Procedure: 08/26/23 Procedure(s) Performed: PREOPERATIVE DIAGNOSIS: 1- Lumbar Degenerative Disc Diseases 2-Lumbar spondylosis with Facet arthropathy without myelopathy. 3-lumbar radiculopathy POSTOPERATIVE DIAGNOSIS: 1-lumbar degenerative disc disease. 2-lumbar spondylosis with facet arthropathy without myelopathy. 3-lumbar radiculopathy PROCEDURE 1. Lumbar epidural steroid injection under fluoroscopic guidance at the L3-4 level. (Fluoroscopy imaging was available in radiology department) 2. Lumbar epidurogram. ANESTHESIA: Lidocaine 1% 3 and then only. EBL: Minimal PROCEDURE INDICATION: The patient with low back pain and radiculitis symptoms unresponsive to conservative treatment. Fluoroscopy was used to optimize visualization of the needle placement and to maximize safety. PROCEDURE DESCRIPTION / TECHNIQUE: The patient was seen and identified in the preoperative area. Risks, benefits, complications including but not limited to infections ,bleeding ,allergic reaction to the medications ,nerve damage and not complete pain releife , and alternatives were discussed with the patient. The patient agreed to proceed with the procedure and signed the consent, and vital signs were stable. Patient was taken to the OR and time out was completed. The patient was placed in the prone position on procedure table and a pillow was placed under the abdomen to reduce lumbar lordosis. The lumbosacral area was prepped and draped in the usual sterile fashion.ere closely monitored during the procedure. Vital signs was monitered during the entire procedure. Using anterior-posterior fluoroscopy, the 3-4 identified , and then infiltrated with 1% lidocaine subcutaneously. Subsequently, a 20-gauge Tuohy epidural needle was inserted and advanced toward the epidural space( right paramedial ) using the ``Loss of resistance technique and guided by AP and lateral fluoroscopy. The correct needle position in the epidural space was verified with the injection of 2 mL of the water soluble contrast dye Isovue 200 contrast and observing an excellent epidurogram with the epidural spread of the dye, after negative aspiration for blood and CSF and in the absence of paresthesias. Again after negative aspiration, a 6 ml mixture containing 40 mg of Depo-medrol ( Preservetive Free ), and 2 ml of preservative free Normal Saline, and 2 ml of preservative free lidocaine 1% solution was injected and a washout of epidurogram was seen. Needle was withdrawn intact, skin was cleansed, and bandages were applied. COMPLICATIONS: None DISPOSITION / PLANS: The patient was placed in a supine position and transferred to the recovery area in a stable condition for observation. There was no evidence of lower extremity motor or sensory deficit after the procedure. Patient was discharged from the recovery room after meeting discharge criteria. Home discharge instructions were given to the pateints. she Held Coumadin for 5 days and the PT/INR within acceptable range
--- NOTE | 2023-08-26 13:47 | FL ---
EXAMINATION TYPE: FL guided pain mgmt statistic Intraoperative/procedural fluoroscopic services were provided. Total fluoroscopy time is 3.5 seconds with a total of 1 submitted images to PACS. Please se e the operative/procedural note for further details. DAP: [id number] mGym2
[2023-08-26 15:05] VITALS: BP 144/84; PULSE 53
== END 2023-08-26 14:14 ==
LOC: ORPAIN 11:52
PROVIDERS: ATTEND Specialist
DX: M51.16 Intervertebral disc disorders with radiculopathy, lumbar region (principal); M47.26 Other spondylosis with radiculopathy, lumbar region; Z88.0 Allergy status to penicillin; Z88.5 Allergy status to narcotic agent; Z88.1 Allergy status to other antibiotic agents; Z79.899 Other long term (current) drug therapy; Z98.890 Other specified postprocedural states
CPT/HCPCS: 85610; 62323; Q9966; J1010

== ENCOUNTER → 2023-09-15 | Outpatient (CLI) | payer MEDICARE, BC ==
[2023-09-15 14:11] VITALS: BP 175/85; PULSE 54; RESP 16
--- NOTE | 2023-09-15 14:56 | P.PAINPG ---
PQRS Measure Charge Sheet Comment: HISTORY OF PRESENT ILLNESS: A 83 yr old wheelchair bound female w male caregiver at side presents today w severe and chronic LBP > 10 yrs secondary to DDD, spondylosis and facet arthropathy without myelopathy for evaluation s/p TASHA L5-S1 #4. Pt states she experienced 70 % pain relief x 3 wks s/p procedure. Pt states pain level is provoked at 7 /10 in intensity, intermittent, localized in the lower lumbar spine, predominantly axial, sharp in character w occasional shooting pain towards the R hip. Pain is provoked by standing or laying supine for periods > 30 min. Pt can not do PT as she no longer drives, is wheelchair bound, and can not have visiting PT as areas of her home are cluttered due to reconstruction from [employer]. Pain is alleviated by injections, medications, topical, heat, use of a wheelchair for ambulatory assistance, repositioning, reclining and rest. Oswestry axial pain score at 20. Interventional procedures include TASHA L5-S1 x2 (Jul 2023), TASHA L4-L5 x1 (Jun 2023), TASHA L3-L4 x1 Medications include Tramadol, Tyl Arthritis REVIEW OF ORGAN SYSTEMS: CONSTITUTIONAL: No fevers or chills. No recent weight loss. NEUROLOGICAL: + numbness and tingling along the distal extremities. No seizure disorders or headaches. MUSCULOSKELETAL: + pain PSYCHIATRIC: Denies current depression or suicidal thoughts. Physical Examinations : Constitutional : Cooperative , not in acute distress . Neurologic : Cranial nerve II to XII intact. No focal neurological deficits. Psychiatric : alert & oriented x 3. Matching mood & appropriate affect. Judgment & insight intact. Musculoskeletal : Cervical Spine Motor strength in the deltoid and biceps: Normal right side. Normal Left side Motor strength biceps and the wrist extensors: Normal right side . Normal left side Motor strength in the triceps muscle: Normal right side. Normal left side Deep tendon reflexes: Normal at the biceps. Normal at Brachioradialis. Normal at triceps Vertebral body tenderness to deep palpation over Cervical facet loading test: positive bilaterally Spurling test: positive bilaterally Neck distraction test: positive bilaterally Watson sign: positive bilaterally Lumbar spine Motor strength lower extremities ,thigh and legs 5/5 Right side , 5/5 Left side Deep tendon reflexes : Normal Knee Jerk. Normal Ankle Jerk Vertebral body tenderness over L3 Zacarias Test positive BL L3-L4 Lumbar facet Loading Test: positive Right / positive Left BL L4-L5, L5-S1 Range of motion of the lumbar spine Flexion 30 degrees, extension 10 degrees Straight Leg Raise test: Left/ Right positive at <30 degrees Baljinder test: positive right / positive left. Severe tenderness over the Sacroiliac joint on the Right / Left sides Gaenslen test: positive bilaterally Seated flexion test: positive bilaterally. Sacral spine : Severe tenderness over the Sacroiliac joint: right side / left side Range of motion: Flexion of the lumbar spine <60 degrees Range of motion: Extension of the lumbar spine <20 degrees Gaenslen's Test positive Baljinder test: positive right side / left side Thigh Thrust Test Sacral Thrust Test Imaging: CT noncontrast of the lumbar spine from 04/21/23 reviewed Assessment/ Plan : Lumbar DDD Recommendation of BL MBB L3-L5 #1. May need a series of injections, up until RFA, for optimal pain relief. Risks, benefits of procedure discussed and patient verbalized understanding. Protocol for discontinuation/continuation of medications surrounding procedure discussed. Minimal anesthesia including Fentanyl and Versed if clinically indicated. All questions answered. I have spent greater than 30 minutes on patient care today. Dr Rand was available by phone for the evaluation of this patient. The time was used to review the medical records including relevant urine studies and Prescription history (MAPs), review of the available imaging, evaluation and examination of the patient, coordination of care with the medical staff and if applicable referring physicians, as well as creation of the medical record PQRS Narrative: Smoking Status Never smoker Hx Alcohol Use (MH) No Home Medications: Ambulatory Orders Diltiazem Cd [Cardizem CD] 180 mg PO HS 03/30/15 Levothyroxine Sodium [Synthroid] 75 mcg PO QAM 03/30/15 Phenytoin Sodium Extended [Dilantin] 100 mg PO BID 03/30/15 Acetaminophen [Tylenol Arthritis] 650 mg PO DIRECTED PRN 08/06/22 Calcium Carbonate [Calcium] 600 mg PO HS 08/06/22 Cetirizine HCl [Zyrtec] 10 mg PO QAM 08/06/22 Metoprolol Succinate (ER) [Toprol XL] 25 mg PO QAM 08/06/22 Metoprolol Succinate (ER) [Toprol XL] 50 mg PO HS 08/06/22 Multivit-Min/Iron/Folic/Lutein [Centrum Silver Women Tablet] 1 tab PO HS 08/06/22 Warfarin [Coumadin] 7.5 mg PO TU@2100 08/06/22 Warfarin [Coumadin] 5 mg PO SUMOWETHFRSA 10/18/22 Furosemide [Lasix] 40 mg PO DAILY PRN 12/07/22 Albuterol Inhaler [Ventolin Hfa Inhaler] 2 puff INHALATION RT-Q6H PRN #1 each 12/09/22 Budesonide-Formot 160-4.5 Mcg [Symbicort 160-4.5 Mcg Inhaler] 2 puff INHALATION RT-BID PRN 05/03/23 Unk Biotin 1 tab PO DAILY 05/03/23 Controlled Substance Measures - Controlled Substance Measures Is patient prescribed a controlled substance at discharge?: No
== END ==
LOC: PNWHC3 13:54
PROVIDERS: ATTEND Specialist
DX: M51.37 Other intervertebral disc degeneration, lumbosacral region (principal); Z88.1 Allergy status to other antibiotic agents; Z88.5 Allergy status to narcotic agent; Z88.8 Allergy status to other drugs, medicaments and biological substances; Z88.0 Allergy status to penicillin
CPT/HCPCS: 99211

== ENCOUNTER 2023-10-01 12:07 | Day surgery (SDC) | payer MEDICARE, BC ==
[2023-09-30 09:27] VITALS: BMI 40.7
[2023-10-01] MEDS: IV FLUID CONTINUATION 1,000 ML IV ONE ×3 (12:30→14:37)
[2023-10-01 12:59] LABS: Prothrombin Time 11.3 sec (10.0-12.5)
[2023-10-01] MEDS: LACTATED RINGERS 1,000 ML IV SCH (13:15)
[2023-10-01] MEDS ORDERED: MIDAZOLAM 2 MG/2 ML VIAL ONE (13:44)
[2023-10-01] MEDS ORDERED: hydrALAZINE HCL 20 MG/ML 1 ML VIAL ONE (13:44)
[2023-10-01] MEDS ORDERED: ROPIVACAINE 5MG/ML 20ML VIAL ONE (13:44)
[2023-10-01] MEDS ORDERED: fentaNYL (PF) 50 MCG/ML 2 ML AMP ONE (13:44)
--- NOTE | 2023-10-01 14:01 | P.PCN ---
Date of Procedure: 10/01/23 Procedure(s) Performed: PREOPERATIVE DIAGNOSIS : 1- Lumbar spondylosis with Facet Arthropathy with out myelopathy . 2- Lumber degenerative disc disease POSTOPERATIVE DIAGNOSIS: 1- Lumbar spondylosis with Facet Arthropathy without myelopathy . 2- Lumber degenerative disc disease PROCEDURE: Diagnostic bilateral L3 , L4 , and L5 medial branch block under fluoroscopy guidance(fluoroscopy images available in the radiology Department ) ( To target the facet joint between Bilateral L4-5 , and L5- S1 )#1st ANESTHESIA: moderate sedation with intravenous Versed 2 mg and Fentanyl 50 mcg. (sedation start time 13:44,end time 13:58 ) EBL: Minimal COMPLICATION: None PROCEDURE INDICATION: Chronic low back pain secondary to Facet arthropathy unresponsive to conservative treatment. PROCEDURE DESCRIPTION: the patient was seen and identified in the preop holding area , risks and benefits and possible complications of the procedure and alternative were discussed with the patient, and the patient agreed to proceed with the procedure and signed the consent and vital signs monitored during the procedure and fluoroscopy was used to maximize the benefit and accuracy of the needle placement, and sedation was given to decrease patient anxiety, patient was taken to the procedure room and placed in prone position vital signs monitored in the back prepped with chlorhexidine X3 then under strict sterile technique using a right oblique fluoroscopy ,the junction of the transverse process and the superior articulating process of the right L3 , L4 , and L5 vertebra which corresponding to the fluoroscopy image of the eye of the Adam dog on the block side for the medial branches and subsequently , after local infiltration of skin and subcu tissuies with Ropivacaine 0.5 % , one mL at each level ,then 22-gauge 5 inches long Quincke-type needles , 3 needle was used , each one of them placed at the junction of the base of the transverse process and the superior articular process at the appropriate level, and the needle was advanced until the periosteum contacted, needle placement confirmed with AP oblique and lateral view and after appropriate needle placement confirmed, and after negative aspiration for heme and CSF and there was no paresthesia 1-1/2 mL of Ropivacaine 0.5% , then half mL injected at each level after negative aspiration the needle subsequently removed and the same procedure repeated for the left side at left side at L3 , L4 and L5 levels. At the end of the procedure and the needles removed and a bandage applied after the skin was cleaned the cleaning solution patient taken to recovery room in stable condition and monitors in the recovery room for 20-30 minutes and discharged home in stable condition after discharge criteria met and patient will follow up with the pain clinic in 2-4 weeks
[2023-10-01 14:16] VITALS: RESP 20
--- NOTE | 2023-10-01 14:36 | FL ---
EXAMINATION TYPE: FL guided pain mgmt statistic Intraoperative/procedural fluoroscopic services were provided. Total fluoroscopy time is 27.00 seconds with a total of 4 submitted images to PACS. Please see the operative/procedural note for further details. DAP: [phone] mGym2
[2023-10-01 14:39] VITALS: BP 150/80; PULSE 64
== END 2023-10-01 14:47 | disposition home or self-care (01) ==
LOC: ORPAIN 12:07
PROVIDERS: ATTEND Specialist
DX: M47.816 Spondylosis without myelopathy or radiculopathy, lumbar region (principal); M51.36 Other intervertebral disc degeneration, lumbar region; G89.29 Other chronic pain; E11.9 Type 2 diabetes mellitus without complications; Z79.01 Long term (current) use of anticoagulants; Z88.0 Allergy status to penicillin; Z88.1 Allergy status to other antibiotic agents; Z88.5 Allergy status to narcotic agent; I10 Essential (primary) hypertension; G40.909 Epilepsy, unspecified, not intractable, without status epilepticus; Z79.890 Hormone replacement therapy; Z79.899 Other long term (current) drug therapy; Z79.51 Long term (current) use of inhaled steroids
CPT/HCPCS: 85610; 64493; 64494; J2250; J0360; J3010; J2795; 99152; 99153

== ENCOUNTER → 2023-10-18 | Outpatient (CLI) | payer MEDICARE, BC ==
[2023-10-18 11:09] VITALS: RESP 16; TEMP 97.1
[2023-10-18 11:36] VITALS: BP 173/89; PULSE 87
--- NOTE | 2023-10-18 15:11 | P.PAINPG ---
PQRS Measure Charge Sheet Comment: HISTORY OF PRESENT ILLNESS: A 83 yr old wheelchair bound female w male caregiver at side presents today w severe and chronic LBP > 10 yrs secondary to DDD, spondylosis and facet arthropathy without myelopathy for evaluation s/p BL MBB L4-L5/ L5-S1 #1. Pt states she experienced 100 % pain relief x 2 hrs s/p procedure. Pt states pain level is provoked at 8 /10 in intensity, intermittent, localized in the lower lumbar spine, predominantly axial, sharp in character w occasional shooting pain towards the R hip. Pain is provoked by standing or laying supine for periods > 30 min. Pt can not do PT as she no longer drives, is wheelchair bound, and can not have visiting PT as areas of her home are cluttered due to reconstruction from [employer]. Pain is alleviated by injections, medications, topical, heat, use of a wheelchair for ambulatory assistance, repositioning, reclining and rest. Oswestry axial pain score at 20. Interventional procedures include TASHA L5-S1 x2 (Jul 2023), TASHA L4-L5 x1 (Jun 2023), TASHA L3-L4 x1, BL MBB L4-L5/ L5-S1 x1 Medications include Tramadol, Tyl Arthritis REVIEW OF ORGAN SYSTEMS: CONSTITUTIONAL: No fevers or chills. No recent weight loss. NEUROLOGICAL: + numbness and tingling along the distal extremities. No seizure disorders or headaches. MUSCULOSKELETAL: + pain PSYCHIATRIC: Denies current depression or suicidal thoughts. Physical Examinations : Constitutional : Cooperative , not in acute distress . Neurologic : Cranial nerve II to XII intact. No focal neurological deficits. Psychiatric : alert & oriented x 3. Matching mood & appropriate affect. Judgment & insight intact. Musculoskeletal : Cervical Spine Motor strength in the deltoid and biceps: Normal right side. Normal Left side Motor strength biceps and the wrist extensors: Normal right side . Normal left side Motor strength in the triceps muscle: Normal right side. Normal left side Deep tendon reflexes: Normal at the biceps. Normal at Brachioradialis. Normal at triceps Vertebral body tenderness to deep palpation over Cervical facet loading test: positive bilaterally Spurling test: positive bilaterally Neck distraction test: positive bilaterally Watson sign: positive bilaterally Lumbar spine Motor strength lower extremities ,thigh and legs 5/5 Right side , 5/5 Left side Deep tendon reflexes : Normal Knee Jerk. Normal Ankle Jerk Vertebral body tenderness over L3 Zacarias Test positive BL L3-L4 Lumbar facet Loading Test: positive Right / positive Left BL L4-L5, L5-S1 Range of motion of the lumbar spine Flexion 30 degrees, extension 10 degrees Straight Leg Raise test: Left/ Right positive at <30 degrees Baljinder test: positive right / positive left. Severe tenderness over the Sacroiliac joint on the Right / Left sides Gaenslen test: positive bilaterally Seated flexion test: positive bilaterally. Sacral spine : Severe tenderness over the Sacroiliac joint: right side / left side Range of motion: Flexion of the lumbar spine <60 degrees Range of motion: Extension of the lumbar spine <20 degrees Gaenslen's Test positive Baljinder test: positive right side / left side Thigh Thrust Test Sacral Thrust Test Imaging: CT noncontrast of the lumbar spine from 04/21/23 reviewed Assessment/ Plan : Lumbar DDD Recommendation of BL MBB L4-L5/ L5-S1 #2. May need a series of injections, up until RFA, for optimal pain relief. Risks, benefits of procedure discussed and patient verbalized understanding. Protocol for discontinuation/continuation of medications surrounding procedure discussed. Minimal anesthesia including Fentanyl and Versed if clinically indicated. All questions answered. I have spent greater than 30 minutes on patient care today. Dr Rand was available by phone for the evaluation of this patient. The time was used to review the medical records including relevant urine studies and Prescription history (MAPs), review of the available imaging, evaluation and examination of the patient, coordination of care with the medical staff and if applicable referring physicians, as well as creation of the medical record PQRS Narrative: Smoking Status Never smoker Hx Alcohol Use (MH) No Home Medications: Ambulatory Orders Diltiazem Cd [Cardizem CD] 180 mg PO HS 03/30/15 Levothyroxine Sodium [Synthroid] 75 mcg PO QAM 03/30/15 Phenytoin Sodium Extended [Dilantin] 100 mg PO BID 03/30/15 Acetaminophen [Tylenol Arthritis] 650 mg PO DIRECTED PRN 08/06/22 Calcium Carbonate [Calcium] 600 mg PO HS 08/06/22 Cetirizine HCl [Zyrtec] 10 mg PO QAM 08/06/22 Metoprolol Succinate (ER) [Toprol XL] 25 mg PO QAM 08/06/22 Metoprolol Succinate (ER) [Toprol XL] 50 mg PO HS 08/06/22 Multivit-Min/Iron/Folic/Lutein [Centrum Silver Women Tablet] 1 tab PO HS 08/06/22 Warfarin [Coumadin] 7.5 mg PO TUTHSA 08/06/22 Warfarin [Coumadin] 5 mg PO SUMOWEFR 10/18/22 Furosemide [Lasix] 40 mg PO DAILY PRN 12/07/22 Albuterol Inhaler [Ventolin Hfa Inhaler] 2 puff INHALATION RT-Q6H PRN #1 each 12/09/22 Budesonide-Formot 160-4.5 Mcg [Symbicort 160-4.5 Mcg Inhaler] 2 puff INHALATION RT-BID PRN 05/03/23 Unk Biotin 1 tab PO DAILY 05/03/23 Controlled Substance Measures - Controlled Substance Measures Is patient prescribed a controlled substance at discharge?: No
== END ==
LOC: PNWHC3 10:49
PROVIDERS: ATTEND Specialist
DX: M51.37 Other intervertebral disc degeneration, lumbosacral region (principal); Z88.1 Allergy status to other antibiotic agents; Z88.0 Allergy status to penicillin; Z88.5 Allergy status to narcotic agent; Z88.8 Allergy status to other drugs, medicaments and biological substances
CPT/HCPCS: 99211

== ENCOUNTER 2023-11-11 10:58 | Day surgery (SDC) | payer MEDICARE, BC ==
[~2023-11-11 10:58] MED LIST changes: +LACTATED RINGERS 1,000 ML BAG ONE; -LACTATED RINGERS 1,000 ML IV SCH
[2023-11-11] MEDS ORDERED: fentaNYL (PF) 50 MCG/ML 2 ML AMP ONE (11:13)
[2023-11-11] MEDS ORDERED: MIDAZOLAM 2 MG/2 ML VIAL ONE (11:13)
[2023-11-11] MEDS ORDERED: ROPIVACAINE 5MG/ML 20ML VIAL ONE (11:13)
[2023-11-23] MEDS ORDERED: DEXAMETHASONE SOD PHOSPHATE 4 MG/ML 1 ML VIAL ONE ×2 (07:59)
[2023-11-23] MEDS ORDERED: ONDANSETRON 4 MG/2 ML VIAL ONE ×2 (07:59)
[2023-11-23] MEDS ORDERED: ACETAMINOPHEN TAB 500 MG TAB ONE ×2 (07:59)
[2023-11-23] MEDS ORDERED: HEPARIN SODIUM,PORCINE 5,000 UNIT/ML 1 ML VIAL ONE ×2 (07:59)
--- NOTE | 2024-01-04 18:19 | FL ---
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 Total fluoroscopy time: 17 seconds Total submitted images to PACS: 4 DAP: [id number] mGym2 Gycm2 uGym2 cGycm2 or equivalent. FINDINGS: Fluoroscopic images during injection for pain management demonstrate multilevel degeneration changes throughout the spine. No evidence for fracture. No acute process identified. IMPRESSION: 1. No evidence for intraoperative complication. 2. Please see the operative/procedural note for further details. [facility], , 01/04/2024 6:17 PM
== END 2023-11-11 12:15 | disposition home or self-care (01) ==
LOC: ORPAIN 10:58
PROVIDERS: ATTEND Anesthesiology
DX: M47.816 Spondylosis without myelopathy or radiculopathy, lumbar region (principal); M51.36 Other intervertebral disc degeneration, lumbar region; I10 Essential (primary) hypertension; Z88.0 Allergy status to penicillin; Z88.1 Allergy status to other antibiotic agents; Z88.5 Allergy status to narcotic agent; Z88.8 Allergy status to other drugs, medicaments and biological substances; Z79.899 Other long term (current) drug therapy; Z79.01 Long term (current) use of anticoagulants
CPT/HCPCS: 99152

== ENCOUNTER → 2023-11-24 | Outpatient (CLI) | payer MEDICARE, BC | LOC: PNWHC3 12:15 | PROVIDERS: ATTEND Specialist | DX: M47.816 Spondylosis without myelopathy or radiculopathy, lumbar region | CPT/HCPCS: 99211 ==

== ENCOUNTER 2024-01-07 08:28 | Day surgery (SDC) | payer MEDICARE, BC ==
[2024-01-07] MEDS: LACTATED RINGERS 1,000 ML IV SCH (09:21)
[2024-01-07 09:27] VITALS: TEMP 97
[2024-01-07] MEDS: IV FLUID CONTINUATION 1,000 ML IV ONE ×2 (09:32→10:08)
[2024-01-07] MEDS ORDERED: ROPIVACAINE 5MG/ML 20ML VIAL ONE (09:38)
[2024-01-07] MEDS ORDERED: TRIAMCINOLONE ACETONIDE 40 MG/ML 1 ML VIAL ONE (09:38)
[2024-01-07] MEDS ORDERED: fentaNYL (PF) 50 MCG/ML 2 ML AMP ONE (09:38)
[2024-01-07] MEDS ORDERED: MIDAZOLAM 2 MG/2 ML VIAL ONE (09:38)
--- NOTE | 2024-01-07 10:03 | P.PCN ---
Date of Procedure: 01/07/24 Description of Procedure: Pre- and Post-operative Diagnosis: Lumbar facet arthropathy, and lumbar spondylosis without myelopathy. Procedure: Bilateral L4-5 radiofrequency thermocoagulation of medial branch under fluoroscopic guidance Bilateral L5-S1 dorsal ramus radiofrequency thermo coagulation under fluoroscopic guidance Surgeon: Rossana Burch Anesthesia: Local: 1% Lidocaine, IV sedation : Midazolam 1+1 mg, and fentanyl 50 + 50 micrograms. Sedation supervision timings: [id number] Complications: None Estimated blood loss: None. Specimen removed: None Fluoroscopic image: Saved to patient electronic medical records. Indications for Procedure: The patient is well known to pain clinic for his chronic low back pain management. The lumbar facet loading test was positive with a clinical diagnosis of lumbar facet arthropathy. Patient had marked decrease in pain after the diagnostic medial branch procedure. Came here for radiofrequency ablation for longer pain relief. PROCEDURE DESCRIPTION: The patient was seen and identified in the preoperative area. Risks, benefits, complications, and alternatives were discussed with the patient. The patient agreed to proceed with the procedure and signed the consent. IV was started. Vital signs were stable. Patient was taken to the procedure room and timeout was completed. The patient was placed in the prone position on procedure table and a pillow was placed under the abdomen to reduce lumbar lordosis. The lumbosacral area was prepped and draped in the usual sterile fashion. Critical pause was taken. Vital signs were closely monitored during the procedure. The fluoroscopic camera was placed in the anteroposterior position to identify the junction of superior articular process and its corresponding injection with its transverse process of Right side L4, L5, S1, which were anesthetized with 1% lidocaine. We used 18-gauge 150-mm curved, sharp radiofrequency cannula with 10-mm active tip for the procedure. The first cannula was guided by fluoroscopy to the S1 superior articular process and its corresponding junction with its ala. The second cannula was guided by fluoroscopy into the L5 superior articular process and its corresponding junction with its transverse process and pedicle. The third cannula was guided by fluoroscopy into the L4 SAP and its corresponding junction with its transverse process and its pedicle. After confirmation of needle tip position on oblique view, and lateral view each site underwent motor testing at 2 Hz and 0 to 2.5 volts, and there was good motor stimulation in the back and no radicular symptoms or paresthesias. After confirm ation of motor testing, 0.5 mL of block solution injected at each site . Block solution contained 4 mL of 0.5% ropivacaine preservative free mixed with 40 MG of Kenalog. At this time, each site was ablated using continuous radiofrequency mode at 80 degrees Celsius for 90 seconds at each level. At the end of the procedure, each needle was retracted approximately 1 cm and the skin was infiltrated with 0.5% ropivacaine preservative free 1 ml at each site. Skin was cleansed and bandages were applied. Entire procedure repeated on the left side. Skin was cleansed and bandages were applied. Disposition : The patient tolerated the procedure very well. The patient was transferred to the recovery room and remained stable until discharged home. The patient was given detailed discharge instructions for infection, bleeding, and increased pain at the injection site, and was advised to seek immediate medical attention should significant side effects develop. The patient will be scheduled with Pain Clinic within 4-8 weeks.
[2024-01-07] MEDS ORDERED: ONDANSETRON 4 MG/2 ML VIAL IM STA (10:28)
[2024-01-07 10:35] VITALS: RESP 14
--- NOTE | 2024-01-07 10:49 | FL ---
EXAMINATION TYPE: FL guided pain mgmt statistic DATE OF EXAM: 01/07/2024 10:05 AM COMPARISON: Pre Operative Images if available both CT/MRI or plain film CLINICAL INDICATION: Female, 83 years old with history of M47.816; TECHNIQUE: FL guided pain mgmt statistic, multiple fluoroscopic images provided for procedure. Total fluoroscopy time: 21.7 seconds Total submitted images to PACS: 7 DAP: [id number] mGym2 Gycm2 uGym2 cGycm2 or equivalent. FINDINGS: Fluoroscopic images during injection for pain management demonstrate multilevel degeneration changes throughout the spine. No evidence for fracture. No acute process identified. IMPRESSION: 1. No evidence for intraoperative complication. 2. Please see the operative/procedural note for further details. [facility], , 01/07/2024 10:47 AM
[2024-01-07 11:10] VITALS: BP 128/62; PULSE 50
== END 2024-01-07 11:33 | disposition home or self-care (01) ==
LOC: ORPAIN 08:28
DX: M47.816 Spondylosis without myelopathy or radiculopathy, lumbar region
CPT/HCPCS: 99152; 99153

== ENCOUNTER → 2024-02-07 | Outpatient (CLI) | payer MEDICARE, BC ==
[2024-02-07 13:55] VITALS: BP 134/78; PULSE 53; RESP 16; TEMP 96.9
--- NOTE | 2024-02-09 07:31 | P.PAINPG ---
PQRS Measure Charge Sheet Comment: HISTORY OF PRESENT ILLNESS: A 83 yr old wheelchair bound female w male caregiver at side presents today w severe and chronic LBP > 10 yrs secondary to radiculopathy, spondylosis and facet arthropathy without myelopathy for evaluation s/p BL RA L4-L5/ L5-S1. Pt states she experienced 100 % pain relief s/p procedure. Pt states pain level is provoked at 1 /10 in intensity, intermittent, localized in the lower lumbar spine, predominantly axial, sharp in character without shooting pain. Pain is provoked by standing or laying supine for periods > 30 min. Pt can not do PT as she no longer drives, is wheelchair bound, and can not have visiting PT as areas of her home are cluttered due to reconstruction from [employer]. Pain is alleviated by injections, medications, topical, heat, use of a wheelchair for ambulatory assistance, repositioning, reclining and rest. Interventional procedures include TASHA L5-S1 x2 (Jul 2023), TASHA L4-L5 x1 (Jun 2023), TASHA L3-L4 x1, BL RFA L3-L5 (Jan 2024) Medications include Tramadol, Tyl Arthritis REVIEW OF ORGAN SYSTEMS: CONSTITUTIONAL: No fevers or chills. No recent weight loss. NEUROLOGICAL: + numbness and tingling along the distal extremities. No seizure disorders or headaches. MUSCULOSKELETAL: + pain PSYCHIATRIC: Denies current depression or suicidal thoughts. Physical Examinations : Constitutional : Cooperative , not in acute distress . Neurologic : Cranial nerve II to XII intact. No focal neurological deficits. Psychiatric : alert & oriented x 3. Matching mood & appropriate affect. Judgment & insight intact. Musculoskeletal : Cervical Spine Motor strength in the deltoid and biceps: Normal right side. Normal Left side Motor strength biceps and the wrist extensors: Normal right side . Normal left side Motor strength in the triceps muscle: Normal right side. Normal left side Deep tendon reflexes: Normal at the biceps. Normal at Brachioradialis. Normal at triceps Vertebral body tenderness to deep palpation over Cervical facet loading test: positive bilaterally Spurling test: positive bilaterally Neck distraction test: positive bilaterally Watson sign: positive bilaterally Lumbar spine Motor strength lower extremities ,thigh and legs 5/5 Right side , 5/5 Left side Deep tendon reflexes : Normal Knee Jerk. Normal Ankle Jerk Vertebral body tenderness over L3 Zacarias Test positive BL L3-L4 Lumbar facet Loading Test: positive Right / positive Left BL L4-L5, L5-S1 Range of motion of the lumbar spine Flexion 30 degrees, extension 10 degrees Straight Leg Raise test: Left/ Right positive at <30 degrees Baljinder test: positive right / positive left. Severe tenderness over the Sacroiliac joint on the Right / Left sides Gaenslen test: positive bilaterally Seated flexion test: positive bilaterally. Sacral spine : Severe tenderness over the Sacroiliac joint: right side / left side Range of motion: Flexion of the lumbar spine <60 degrees Range of motion: Extension of the lumbar spine <20 degrees Gaenslen's Test positive Baljinder test: positive right side / left side Thigh Thrust Test Sacral Thrust Test Imaging: CT noncontrast of the lumbar spine from 04/21/23 reviewed Assessment/ Plan : Lumbar radiculopathy Will manage residual pain and may RTC on an as needed basis. All questions answered. I have spent greater than 30 minutes on patient care today. Dr Rand was available by phone for the evaluation of this patient. The time was used to review the medical records including relevant urine studies and Prescription history (MAPs), review of the available imaging, evaluation and examination of the patient, coordination of care with the medical staff and if applicable referring physicians, as well as creation of the medical record PQRS Narrative: Smoking Status Never smoker Hx Alcohol Use (MH) No Home Medications: Ambulatory Orders Diltiazem Cd [Cardizem CD] 180 mg PO 03/30/15 Levothyroxine Sodium [Synthroid] 75 mcg PO QAM 03/30/15 Phenytoin Sodium Extended [Dilantin] 100 mg PO BID 03/30/15 Acetaminophen [Tylenol Arthritis] 650 mg PO BID 08/06/22 Calcium Carbonate [Calcium] 600 mg PO 08/06/22 Cetirizine HCl [Zyrtec] 10 mg PO QAM 08/06/22 Metoprolol Succinate (ER) [Toprol XL] 25 mg PO QAM 08/06/22 Metoprolol Succinate (ER) [Toprol XL] 50 mg PO 08/06/22 Multivit-Min/Iron/Folic/Lutein [Centrum Silver Women Tablet] 1 tab PO 08/06/22 Warfarin [Coumadin] 2.5 mg PO TU 08/06/22 Warfarin [Coumadin] 5 mg PO DAILY 07/16/23 Furosemide [Lasix] 40 mg PO DAILY PRN 12/07/22 Albuterol Inhaler [Ventolin Hfa Inhaler] 2 puff INHALATION RT-Q6H PRN #1 each 12/09/22 Budesonide-Formot 160-4.5 Mcg [Symbicort 160-4.5 Mcg Inhaler] 2 puff INHALATION RT-BID PRN 05/03/23 Unk Biotin 1 tab PO DAILY 05/03/23 Controlled Substance Measures - Controlled Substance Measures Is patient prescribed a controlled substance at discharge?: No
== END ==
LOC: PNWHC3 13:42
PROVIDERS: ATTEND Specialist
DX: M54.16 Radiculopathy, lumbar region (principal); Z88.1 Allergy status to other antibiotic agents; Z88.5 Allergy status to narcotic agent; Z88.0 Allergy status to penicillin; Z88.8 Allergy status to other drugs, medicaments and biological substances
CPT/HCPCS: 99211

== ENCOUNTER 2024-06-09 08:54 | Day surgery (SDC) | payer MEDICARE, BC ==
[2024-06-07 16:03] VITALS: BMI 40.7
[~2024-06-09 08:54] MED LIST changes: -LACTATED RINGERS 1,000 ML BAG ONE; +LACTATED RINGERS 1,000 ML IV SCH
[2024-06-09 10:24] VITALS: RESP 18; TEMP 97.5
[2024-06-09 10:47] LABS: Glucose,Whole Blood 84 mg/dL (70-110)
[2024-06-09] MEDS ORDERED: ROPIVACAINE 5MG/ML 20ML VIAL ONE (11:01)
[2024-06-09] MEDS ORDERED: methylPREDNISolone ACETATE 40 MG/ML 1 ML VIAL ONE (11:01)
--- NOTE | 2024-06-09 11:12 | P.PCN ---
Date of Procedure: 06/09/24 Procedure(s) Performed: [ Procedure= trigger point injections lumbar paraspinal muscles bilaterally , 4 on the right side from L1 to S1, and 4 on the left side from L1 to S1 Preoperative diagnosis= 1-myofascial pain syndrome lumbar paraspinal muscles 2-lumbar degenerative disc disease 3-lumbar facet arthropathy Postoperative diagnosis=Same as preop Diagnosis . Complication = none Condition= stable Anesthesia= moderate sedation with Versed 2 mg. Sedation started at Indication for the procedure= patient complaining of low back pain , examination was positive for multiple trigger point in the lumbar paraspinal muscles bilaterally and patient diagnosed with myofascial pain syndrome and is here to have trigger point injections Description of the procedure= procedure risk and benefits discussed with the patient, including but not limited, risk of infection and bleeding, and ALLERGIC reaction to the medication and not complete pain relief and patient agreed with the preceding patient taken to the operating room, placed in sitting position or standard monitors applied to the patient then after induction of anesthesia back prepped with chlorhexidine 3 times , then under sterile technique each of the trigger point that was marked in the preop holding area 4 on the right side lumbar paraspinal muscles and 4 on the left side lumbar paraspinal muscles each one of them injected with the 2 mL of the mixture of ropivacaine 0.5% 16 ML mixed with 40 mg of Depo-Medrol and 2 mL of the mixture injected at each trigger point after negative aspiration, using 25-gauge needle, injection done after negative aspiration under was no paresthesia during the injection patient t olerated the procedure well without any complications and he will follow up in the pain clinic in a few weeks
[2024-06-09 11:16] VITALS: PULSE 60
[2024-06-09 11:30] VITALS: BP 144/70
== END 2024-06-09 11:44 ==
LOC: ORPAIN 08:54
PROVIDERS: ATTEND Specialist
DX: M79.18 Myalgia, other site (principal); M51.369 Other intervertebral disc degeneration, lumbar region without mention of lumbar back pain or lower extremity pain; M47.816 Spondylosis without myelopathy or radiculopathy, lumbar region
CPT/HCPCS: 20553; J2795; J1010

== ENCOUNTER → 2024-06-28 | Outpatient (CLI) | payer MEDICARE, BC ==
[2024-06-28 09:57] VITALS: BP 147/81; PULSE 50; RESP 18; TEMP 97.6
--- NOTE | 2024-06-28 14:58 | P.PAINPG ---
PQRS Measure Charge Sheet Comment: HISTORY OF PRESENT ILLNESS: A 83 yr old wheelchair bound female w female caregiver at side presents today w severe and chronic LBP > 10 yrs secondary to radiculopathy, spondylosis and facet arthropathy without myelopathy for evaluation s/p BL TPIs L1-S1 #1. Pt states she experienced 50-60 % pain relief x 2-3 wks s/p procedure. Pt states pain level is provoked at 5 /10 in intensity, intermittent, localized in the lower lumbar spine, predominantly axial, sharp in character w occasional shooting pain to the LLE. Pain is provoked by standing or laying supine for periods > 30 min. Pt can not do PT as she no longer drives, is wheelchair bound, and can not have visiting PT as areas of her home are cluttered due to reconstruction from [employer]. Pain is alleviated by injections, medications, topical, heat, use of a wheelchair for ambulatory assistance, repositioning, reclining and rest. Interventional procedures include TASHA L5-S1 x2 (Jul 2023), TAHSA L4-L5 x1 (Jun 2023), TASHA L3-L4 x1, BL RFA L3-L5 (Jan 2024), BL TPIs L1-S1 x1 (06/27) Medications include Tramadol, Tyl Arthritis REVIEW OF ORGAN SYSTEMS: CONSTITUTIONAL: No fevers or chills. No recent weight loss. NEUROLOGICAL: + numbness and tingling along the distal extremities. No seizure disorders or headaches. MUSCULOSKELETAL: + pain PSYCHIATRIC: Denies current depression or suicidal thoughts. Physical Examinations : Constitutional : Cooperative , not in acute distress . Neurologic : Cranial nerve II to XII intact. No focal neurological deficits. Psychiatric : alert & oriented x 3. Matching mood & appropriate affect. Judgment & insight intact. Musculoskeletal : Cervical Spine Motor strength in the deltoid and biceps: Normal right side. Normal Left side Motor strength biceps and the wrist extensors: Normal right side . Normal left side Motor strength in the triceps muscle: Normal right side. Normal left side Deep tendon reflexes: Normal at the biceps. Normal at Brachioradialis. Normal at triceps Vertebral body tenderness to deep palpation over Cervical facet loading test: positive bilaterally Spurling test: positive bilaterally Neck distraction test: positive bilaterally Watson sign: positive bilaterally Lumbar spine Motor strength lower extremities ,thigh and legs 5/5 Right side , 5/5 Left side Deep tendon reflexes : Normal Knee Jerk. Normal Ankle Jerk Vertebral body tenderness over L3 Zacarias Test positive BL L3-L4 Lumbar facet Loading Test: positive Right / positive Left BL L4-L5, L5-S1 Range of motion of the lumbar spine Flexion 30 degrees, extension 10 degrees Straight Leg Raise test: Left/ Right positive at <30 degrees Taut bands w twitch response over BL L1-S1 Baljinder test: positive right / positive left. Severe tenderness over the Sacroiliac joint on the Right / Left sides Gaenslen test: positive bilaterally Seated flexion test: positive bilaterally. Sacral spine : Severe tenderness over the Sacroiliac joint: right side / left side Range of motion: Flexion of the lumbar spine <60 degrees Range of motion: Extension of the lumbar spine <20 degrees Gaenslen's Test positive Baljinder test: positive right side / left side Thigh Thrust Test Sacral Thrust Test Imaging: CT noncontrast of the lumbar spine from 04/21/23 reviewed Assessment/ Plan : Lumbar radiculopathy Recommendation of BL TPIs L1-S1 #2. Risks, benefits of procedure discussed and pt acknowledged understanding. Zanaflex 4mg #90 w 1 RF. Use, side effects, adverse reactions, safe storage discussed. All questions answered. I have spent greater than 30 minutes on patient care today. Dr Rand was available by phone for the evaluation of this patient. The time was used to review the medical records including relevant urine studies and Prescription history (MAPs), review of the available imaging, evaluation and examination of the patient, coordination of care with the medical staff and if applicable ref erring physicians, as well as creation of the medical record PQRS Narrative: Smoking Status Never smoker Hx Alcohol Use (MH) No Home Medications: Ambulatory Orders Diltiazem Cd [Cardizem CD] 180 mg PO HS 03/30/15 Levothyroxine Sodium [Synthroid] 75 mcg PO QAM 03/30/15 Acetaminophen [Tylenol Arthritis] 650 mg PO DIRECTED PRN 08/06/22 Calcium Carbonate [Calcium] 600 mg PO HS 08/06/22 Cetirizine HCl [Zyrtec] 10 mg PO QAM 08/06/22 Metoprolol Succinate (ER) [Toprol XL] 25 mg PO QAM 08/06/22 Metoprolol Succinate (ER) [Toprol XL] 50 mg PO HS 08/06/22 Multivit-Min/Iron/Folic/Lutein [Centrum Silver Women Tablet] 1 tab PO HS 08/06/22 Warfarin [Coumadin] 2.5 mg PO TU 08/06/22 Warfarin [Coumadin] 5 mg PO DAILY 10/18/22 Furosemide [Lasix] 40 mg PO DAILY PRN 12/07/22 Albuterol Inhaler [Ventolin Hfa Inhaler] 2 puff INHALATION RT-Q6H PRN #1 each 12/09/22 Budesonide-Formot 160-4.5 Mcg [Symbicort 160-4.5 Mcg Inhaler] 2 puff INHALATION RT-BID PRN 05/03/23 Unk Biotin 1 tab PO DAILY 05/03/23 tiZANidine [Zanaflex] 4 mg PO TID PRN 30 Days #90 tab 05/17/24 Phenytoin Sodium Extended [Dilantin] 100 mg PO BID 06/09/24 Controlled Substance Measures - Controlled Substance Measures Is patient prescribed a controlled substance at discharge?: No
== END ==
LOC: PNWHC3 09:35
PROVIDERS: ATTEND Specialist
DX: M54.16 Radiculopathy, lumbar region (principal); Z88.0 Allergy status to penicillin; Z88.5 Allergy status to narcotic agent; Z88.8 Allergy status to other drugs, medicaments and biological substances; Z88.4 Allergy status to anesthetic agent
CPT/HCPCS: 99211

== ENCOUNTER 2024-07-18 08:54 | Day surgery (SDC) | payer MEDICARE, BC ==
[2024-07-17 09:32] VITALS: BMI 39.6
[2024-07-18 10:18] VITALS: TEMP 97.2
[2024-07-18] MEDS ORDERED: methylPREDNISolone ACETATE 80 MG/ML 1 ML VIAL ONE (11:13)
[2024-07-18] MEDS ORDERED: ROPIVACAINE 5MG/ML 20ML VIAL ONE (11:13)
--- NOTE | 2024-07-18 11:21 | P.PCN ---
Description of Procedure: Preprocedure diagnosis. Myofascial pain. Myofascial trigger point. Postprocedure diagnosis. As above. Procedure done. Myofascial trigger point injection with local anesthetics and steroid at 6 points. Anesthesia. Local anesthetic infiltration. In the OR continuous pulse ox, EKG, blood pressure, and verbal communication was maintained with the patient. Blood loss. None. Indication. Discussed with the patient procedure, alternatives and possible complications which may include infection, bleeding, nerve damage, aggravation of pain. Patient understands and all questions were answered. Procedure note. After getting consent patient in the procedure area. Most tender points were identified and marked. A 25-gauge needle attached to syringe was introduced at the trigger points and after negative aspiration 5 mL solution are injected at each trigger point. I injected 6 trigger points in bilateral lumber paraspinal muscles, 3 trigger points in each side. Total solution consists of 30 ml 0.5%Ropivacaine mixed with 60 mg Depomedrol. Disposition. Patient tolerated the procedure well. No complication. [facility] home in stable condition.
[2024-07-18 11:42] VITALS: BP 179/76; PULSE 55; RESP 18
== END 2024-07-18 11:58 | disposition home or self-care (01) ==
LOC: ORPAIN 08:54
PROVIDERS: ATTEND Pain Medicine Interventional Pain Medicine
DX: M79.18 Myalgia, other site (principal); Z88.1 Allergy status to other antibiotic agents; Z88.5 Allergy status to narcotic agent; Z88.0 Allergy status to penicillin
CPT/HCPCS: 20553; J2795; J1010

== ENCOUNTER → 2024-08-10 | Outpatient (CLI) | payer MEDICARE, BC ==
[2024-08-10 10:23] VITALS: BP 164/72; PULSE 53; RESP 17
--- NOTE | 2024-08-10 14:51 | P.PAINPG ---
Objective - Vital Signs Vital signs: Intake & Output 08/09/24 08/10/24 08/10/24 18:59 06:59 18:59 Weight 88.451 kg PQRS Measure Charge Sheet Comment: HISTORY OF PRESENT ILLNESS: A 83 yr old wheelchair bound female w female caregiver at side presents today w severe and chronic LBP > 10 yrs secondary to radiculopathy, spondylosis and facet arthropathy without myelopathy for evaluation s/p BL TPIs L1-S1 #2. Pt states she experienced 50 % pain relief x 2-3 wks s/p procedure. Pt states pain level is provoked at 10 /10 in intensity, intermittent, localized in the lower lumbar spine, predominantly axial, sharp in character without shooting pain. Pain is provoked by standing or laying supine for periods > 30 min. Pt can not do PT as she no longer drives, is wheelchair bound, and can not have visiting PT as areas of her home are cluttered due to reconstruction from [employer]. Pain is alleviated by injections, medications, topical, heat, use of a wheelchair for ambulatory assistance, repositioning, reclining and rest. Interventional procedures include TASHA L5-S1 x2 (Jul 2023), TASHA L4-L5 x1 (Jun 2023), TASHA L3-L4 x1, BL RFA L3-L5 (Jan 2024), BL TPIs L1-S1 x2 (06/27, 07/28) Medications include Tramadol, Tyl Arthritis REVIEW OF ORGAN SYSTEMS: CONSTITUTIONAL: No fevers or chills. No recent weight loss. NEUROLOGICAL: + numbness and tingling along the distal extremities. No seizure disorders or headaches. MUSCULOSKELETAL: + pain PSYCHIATRIC: Denies current depression or suicidal thoughts. Physical Examinations : Constitutional : Cooperative , not in acute distress . Neurologic : Cranial nerve II to XII intact. No focal neurological deficits. Psychiatric : alert & oriented x 3. Matching mood & appropriate affect. Judgment & insight intact. Musculoskeletal : Cervical Spine Motor strength in the deltoid and biceps: Normal right side. Normal Left side Motor strength biceps and the wrist extensors: Normal right side . Normal left side Motor strength in the triceps muscle: Normal right side. Normal left side Deep tendon reflexes: Normal at the biceps. Normal at Brachioradialis. Normal at triceps Vertebral body tenderness to deep palpation over Cervical facet loading test: positive bilaterally Spurling test: positive bilaterally Neck distraction test: positive bilaterally Watson sign: positive bilaterally Lumbar spine Motor strength lower extremities ,thigh and legs 5/5 Right side , 5/5 Left side Deep tendon reflexes : Normal Knee Jerk. Normal Ankle Jerk Vertebral body tenderness over L3 Zacarisa Test positive BL L3-L4 Lumbar facet Loading Test: positive Right / positive Left BL L4-L5, L5-S1 Range of motion of the lumbar spine Flexion 30 degrees, extension 10 degrees Straight Leg Raise test: Left/ Right positive at <30 degrees Taut bands w twitch response over BL L1-S1 Baljinder test: positive right / positive left. Severe tenderness over the Sacroiliac joint on the Right / Left sides Gaenslen test: positive bilaterally Seated flexion test: positive bilaterally. Sacral spine : Severe tenderness over the Sacroiliac joint: right side / left side Range of motion: Flexion of the lumbar spine <60 degrees Range of motion: Extension of the lumbar spine <20 degrees Gaenslen's Test positive Baljinder test: positive right side / left side Thigh Thrust Test Sacral Thrust Test Imaging: CT non contrast of the lumbar spine from 04/21/23 reviewed Assessment/ Plan : Lumbar radiculopathy Recommendation of . Risks, benefits of procedure discussed and pt acknowledged understanding. Zanaflex 4mg #90 w 1 RF. Use, side effects, adverse reactions, safe storage discussed. All questions answered. I have spent greater than 30 minutes on patient care today. Dr Rand was available by phone for the evaluation of this patient. The time was used to review the medical records including relevant urine studies and Prescription history (MAPs), review of the available imaging, evaluation and examination of the patient, coordination of care with the medical staff and if applicable referring physicians, as well as creation of the medical record PQRS Narrative: Smoking Status Never smoker Hx Alcohol Use (MH) No Home Medications: Ambulatory Orders Diltiazem Cd [Cardizem CD] 180 mg PO HS 03/30/15 Levothyroxine Sodium [Synthroid] 75 mcg PO QAM 03/30/15 Acetaminophen [Tylenol Arthritis] 650 mg PO DIRECTED PRN 08/06/22 Calcium Carbonate [Calcium] 600 mg PO HS 08/06/22 Cetirizine HCl [Zyrtec] 10 mg PO QAM 08/06/22 Metoprolol Succinate (ER) [Toprol XL] 25 mg PO QAM 08/06/22 Metoprolol Succinate (ER) [Toprol XL] 50 mg PO HS 08/06/22 Multivit-Min/Iron/Folic/Lutein [Centrum Silver Women Tablet] 1 tab PO HS 08/06/22 Warfarin [Coumadin] 2.5 mg PO TU 08/06/22 Warfarin [Coumadin] 5 mg PO DAILY 10/18/22 Furosemide [Lasix] 40 mg PO DAILY PRN 12/07/22 Albuterol Inhaler [Ventolin Hfa Inhaler] 2 puff INHALATION RT-Q6H PRN #1 each 12/09/22 Budesonide-Formot 160-4.5 Mcg [Symbicort 160-4.5 Mcg Inhaler] 2 puff INHALATION RT-BID PRN 05/03/23 Unk Biotin 1 tab PO DAILY 05/03/23 tiZANidine [Zanaflex] 4 mg PO TID PRN 30 Days #90 tab 05/17/24 Phenytoin Sodium Extended [Dilantin] 100 mg PO BID 06/09/24 HYDROcodone/APAP 5-325MG [[place] 5-325] 1 tab PO TID PRN 30 Days #90 tab 08/10/24 HYDROcodone/APAP 5-325MG [[place] 5-325] 1 tab PO TID PRN 30 Days #90 tab 08/10/24 Controlled Substance Measures - Controlled Substance Measures Is patient prescribed a controlled substance at discharge?: Yes When asked, does pt state using other controlled substances?: Yes If prescribed controlled substance>3 days was MAPS reviewed?: Yes If Rx opioid, was Start Talking consent form obtained?: Yes Was information provided regarding opioid addiction?: Yes
== END ==
LOC: PNWHC3 10:02
PROVIDERS: ATTEND Specialist
DX: M47.26 Other spondylosis with radiculopathy, lumbar region (principal); Z88.5 Allergy status to narcotic agent; Z88.0 Allergy status to penicillin; Z88.1 Allergy status to other antibiotic agents; Z88.8 Allergy status to other drugs, medicaments and biological substances; Z88.4 Allergy status to anesthetic agent
CPT/HCPCS: 99211

== ENCOUNTER → 2024-10-04 | Outpatient (CLI) | payer MEDICARE, BC ==
[2024-10-04 10:38] VITALS: BP 151/79; PULSE 50; RESP 18; TEMP 97.9
--- NOTE | 2024-10-04 16:11 | P.PAINPG ---
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 Pt underwent a BL RFA L4- L5, L5-S1 in Jan 2024 where she experienced 70% pain relief x 6-7 mo s/p procedure. Pt states pain level is provoked at 8 /10 in intensity, intermittent, localized in the lower lumbar spine, predominantly axial, sharp in character without shooting pain. Pain is provoked by standing or laying supine for periods > 30 min. Pain is alleviated by injections, medications, topical, heat, use of a wheelchair for ambulatory assistance, repositioning, reclining and rest. *Pt can not do PT as she no longer drives, is wheelchair bound, and can not have visiting PT as areas of her home are cluttered due to reconstruction from [employer].* Interventional procedures include TASHA L5-S1 x2 (Jul 2023), TASHA L4-L5 x1 (Jun 2023), TASHA L3-L4 x1, BL RFA L3-L5 (Jan 2024), BL TPIs L1-S1 x2 (06/27, 07/28) Medications include Tramadol, Tyl Arthritis REVIEW OF ORGAN SYSTEMS: CONSTITUTIONAL: No fevers or chills. No recent weight loss. NEUROLOGICAL: + numbness and tingling along the distal extremities. No seizure disorders or headaches. MUSCULOSKELETAL: + pain PSYCHIATRIC: Denies current depression or suicidal thoughts. Physical Examinations : Constitutional : Cooperative , not in acute distress . Neurologic : Cranial nerve II to XII intact. No focal neurological deficits. Psychiatric : alert & oriented x 3. Matching mood & appropriate affect. Judgment & insight intact. Musculoskeletal : Cervical Spine Motor strength in the deltoid and biceps: Normal right side. Normal Left side Motor strength biceps and the wrist extensors: Normal right side . Normal left side Motor strength in the triceps muscle: Normal right side. Normal left side Deep tendon reflexes: Normal at the biceps. Normal at Brachioradialis. Normal at triceps Vertebral body tenderness to deep palpation over Cervical facet loading test: positive bilaterally Spurling test: positive bilaterally Neck distraction test: positive bilaterally Watson sign: positive bilaterally Lumbar spine Motor strength lower extremities ,thigh and legs 5/5 Right side , 5/5 Left side Deep tendon reflexes : Normal Knee Jerk. Normal Ankle Jerk Vertebral body tenderness over L3 Zacarias Test positive BL L3-L4 Lumbar facet Loading Test: positive Right / positive Left BL L4-L5, L5-S1 Range of motion of the lumbar spine Flexion 30 degrees, extension 10 degrees Straight Leg Raise test: Left/ Right positive at <30 degrees Taut bands w twitch response over BL L1-S1 Baljinder test: positive right / positive left. Severe tenderness over the Sacroiliac joint on the Right / Left sides Gaenslen test: positive bilaterally Seated flexion test: positive bilaterally. Sacral spine : Severe tenderness over the Sacroiliac joint: right side / left side Range of motion: Flexion of the lumbar spine <60 degrees Range of motion: Extension of the lumbar spine <20 degrees Gaenslen's Test positive Baljinder test: positive right side / left side Thigh Thrust Test Sacral Thrust Test Imaging: CT non contrast of the lumbar spine from 04/21/23 reviewed Assessment/ Plan : Lumbar radiculopathy Recommendation of BL RFA L4-L5, L5-S1. Risks, benefits of procedure discussed and pt acknowledged understanding. Minimal anesthesia including Fentanyl and Versed if clinically indicated. Protocol for discontinuation/ continuation of medications ivan procedure discussed. Ample supply of Zanaflex 4mg #90. All questions answered. I have spent greater than 30 minutes on patient care today. Dr Rand was available by phone for the evaluation of this patient. The time was used to review the medical records including relevant urine studies and Prescription history (MAPs), review of the available imaging, evaluation and examination of the patient, coordination of care with the medical staff and if applicable referring physicians, as well as creation of the medical record - Pain Location Lower Back Pharmacological Interventions: PRN Medication PQRS Narrative: Smoking Status Never smoker Blood Pressure 151/79 Pain Intensity [Lower Back] 8 Scale Used Numeric (1 - 10) Hx Alcohol Use (MH) No Home Medications: Ambulatory Orders Diltiazem Cd [Cardizem CD] 180 mg PO HS 03/30/15 Levothyroxine Sodium [Synthroid] 75 mcg PO QAM 03/30/15 Acetaminophen [Tylenol Arthritis] 650 mg PO DIRECTED PRN 08/06/22 Calcium Carbonate [Calcium] 600 mg PO HS 08/06/22 Cetirizine HCl [Zyrtec] 10 mg PO QAM 08/06/22 Metoprolol Succinate (ER) [Toprol XL] 25 mg PO QAM 08/06/22 Metoprolol Succinate (ER) [Toprol XL] 50 mg PO HS 08/06/22 Multivit-Min/Iron/Folic/Lutein [Centrum Silver Women Tablet] 1 tab PO HS 08/06/22 Warfarin [Coumadin] 2.5 mg PO TU 08/06/22 Warfarin [Coumadin] 5 mg PO DAILY 10/18/22 Furosemide [Lasix] 40 mg PO DAILY PRN 12/07/22 Albuterol Inhaler [Ventolin Hfa Inhaler] 2 puff INHALATION RT-Q6H PRN #1 each 12/09/22 Budesonide-Formot 160-4.5 Mcg [Symbicort 160-4.5 Mcg Inhaler] 2 puff INHALATION RT-BID PRN 05/03/23 Unk Biotin 1 tab PO DAILY 05/03/23 tiZANidine [Zanaflex] 4 mg PO TID PRN 30 Days #90 tab 05/17/24 Phenytoin Sodium Extended [Dilantin] 100 mg PO BID 06/09/24 HYDROcodone/APAP 5-325MG [[place] 5-325] 1 tab PO TID PRN 30 Days #90 tab 08/10/24 HYDROcodone/APAP 5-325MG [[place] 5-325] 1 tab PO TID PRN 30 Days #90 tab 08/10/24 Controlled Substance Measures - Controlled Substance Measures Is patient prescribed a controlled substance at discharge?: No
== END ==
LOC: PNWHC3 10:18
PROVIDERS: ATTEND Specialist
DX: M47.26 Other spondylosis with radiculopathy, lumbar region (principal); Z88.0 Allergy status to penicillin; Z88.5 Allergy status to narcotic agent; Z91.041 Radiographic dye allergy status; Z88.8 Allergy status to other drugs, medicaments and biological substances
CPT/HCPCS: 99211